=== PATIENT | female | born 1970 | race Caucasian/White ===

== ENCOUNTER 2023-08-22 08:46 | Day surgery (SDC) | payer BC, SELFPAY ==
--- OUTSIDE RECORDS SUMMARY | 2023-08-22 08:49 | XMS_ITS | Continuity of Care Document ---
Author Name Unknown Organization Z [facility] Address [address] [place] [address] Phone Care Team Providers Care Inside Sales Administrator Name Role Phone Unavailable Unavailable Unavailable Procedures Procedure Date Office consultation, moderate 6 X-ray exam of neck spine, 4+ views Advance Directives Directive Yes / No Effective Date File Name No Information Encounters Encounter Description Practice Location Reason(s) For Visit Diagnoses Date Provider Providers Copied on Encounter Z [facility], [address] [place] [address], [facility], tel:[phone] [employer] No Information 0- 8 No Information Office consultation, moderate Z [facility] [place], [address] [place] [address], [facility], tel:[phone] [employer] No Information 2 6 Mehbod Amir. [facility] [place], [address] [address], [place], [place], [id number], [place]. tel:[phone] Referring Provider: Teena Wilson, [facility] [address], [place], [address]. tel:[phone] Family History Family Member Type Diagnosis Age At Onset No Information Payers Payer name Insurance type Covered alliance party ID Authoriza tion(s) No Information Social History Type Description Quantity Date Captured Comments Sex Female Smoking Status No Information Chief Complaint And Reason For Visit No Information Reason For Referral Reason For Referral No Information History Of Present Illness Encounter Date Complaint History Of Prese nt Illness No Information Functional Status Date Functional Assessmen t No Information Instructions Date Instruction Additional Infor mation No Information Assessments Type Assessment Date No Information Patient Care Teams Name Effective Dates (start - stop) Status Members No Information
--- OUTSIDE RECORDS SUMMARY | 2023-08-22 08:50 | XMS_ITS | Continuity of Care Document ---
Author Name Unknown Organization Z [facility] Address [address] [place] [address] Phone Care Team Providers Care Creping Machine Operator Helper Name Role Phone Unavailable Unavailable Unavailable Procedures Procedure Date Office consultation, moderate 6 X-ray exam of neck spine, 4+ views Advance Directives Directive Yes / No Effective Date File Name No Information Encounters Encounter Description Practice Location Reason(s) For Visit Diagnoses Date Provider Providers Copied on Encounter Z [facility], [address] [place] [address], [facility], tel:[phone] [employer] No Information 0- 8 No Information Office consultation, moderate Z [facility] [place], [address] [place] [address], [facility], tel:[phone] [employer] No Information 2 6 Mehbod Amir. [facility] [place], [address] [address], [place], [place], [id number], [place]. tel:[phone] Referring Provider: Teena Wilson, [facility] [address], [place], [address]. tel:[phone] Family History Family Member Type Diagnosis Age At Onset No Information Payers Payer name Insurance type Covered republican ID Authoriza tion(s) No Information Social History [...]
[2023-08-22 09:28] VITALS: BP 148/90; PULSE 56; RESP 16; TEMP 36.8; O2SAT 97
[2023-08-22 09:29] VITALS: BMI 38.5
[2023-08-22] MEDS: LACTATED RINGERS 1000 ML 1,000 ML 100 ML IV (09:35)
--- NOTE | 2023-08-22 10:00 | CRLHL7_ITS ---
For Patients: As a result of the Century Cures Act, medical imaging exams and procedure reports are released immediately into your electronic medical record. You may view this report before your referring provider. If you have questions, please contact your health care provider. Indication: ALFONSO CATH PLACEMENT Technique: Two fluoroscopic images of the chest. Fluoroscopic time 63.6 seconds. IMPRESSION: Fluoroscopic guided Port-A-Cath placement. Dictated by Sarwat Dahl MD @ 08/22/2023 11:15:08 AM (Electronically Signed)
--- NOTE | 2023-08-22 10:04 | SUR.OPER ---
PATIENT QUESTIONS ANSWERED SATISFACTORILY PREOPERATIVELY. PATIENT BROUGHT TO OR #1 PER CART. Patient positioned supine on OR #1 bed. The perioperative team supported arms bilaterally on arm boards. Final approval of positioning by surgeon.
--- NOTE | 2023-08-22 10:13 | PM.GSCN ---
History of Present Illness Consult details Date Seen: 08/22/23 Consult date: 08/22/23 Narrative: 53-year-old female presents for a Port-A-Cath placement. Patient underwent bilateral mastectomy with right sentinel lymph node biopsy for invasive ductal carcinoma of the right breast with focal mucinous features grade 3, ER positive, ID negative, HER2 positive, pT1aN0. 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 Patient was seen by Medical Oncology and chemotherapy treatment was recommended. Patient presents today for Port-A-Cath placement. She denies any recent illnesses, fevers, or rashes. She does have a small open wound in the center of her inverted T incision on the left. She denies any procedures on her neck. Review of Systems Narrative: General: no fevers HENT: no problems swallowing CV: no shortness of breath Resp: no cough GI: No nausea, vomiting, abdominal pain : no dysuria, no increased urinary frequency, no hematuria Skin: no new rashes Musculoskeletal: no back pain Neuro: no muscle weakness Psyche: no depression, no anxiety PFSH PFSH Medical History Breast cancer ?C50.919 - Malignant neoplasm of unspecified site of unspecified female breast (ICD-10) Surgical History (Updated 08/22/23 @ 10:15 by Mendel Alvarez MD) Hx of bilateral mastectomy ?Z90.13 - Acquired absence of bilateral breasts and nipples (ICD-10) Social History (Updated 08/22/23 @ 10:16 by Mendel Alvarez MD) Narrative: Denies smoking, occasionally drinks alcohol. 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 Smoking Status: Never smoker Meds Home Medications and Allergies Home Medications Medication Instructions Recorded Confirmed Type cetirizine 10 mg tablet (Zyrtec) 10 mg PO QDAY PRN 08/16/23 08/16/23 History ibuprofen 200 mg tablet (Advil) 400 mg PO Q8H 08/16/23 08/16/23 History omeprazole 40 mg capsule,delayed 40 mg PO QDAY 08/16/23 08/16/23 History release Allergies Allergy/AdvReac Type Severity Reaction Status Date / Time No Known Drug Allergies Allergy Verified 08/16/23 09:55 Exam Narrative: Exam Narrative: General appearance: Alert, cooperative, and in no distress Chest: Bilateral mastectomy incisions were examined. In the center of the inverted T of the left mastectomy incision there is an open area measuring approximately 6 mm in diameter. There is no surrounding cellulitis. The rest of the bilateral mastectomy incisions are healing well. Pulmonary: Chest symmetric, lungs clear bilaterally Cardiovascular Heart: Regular rate and rhythm, S1, S2, no murmurs/rubs/gallops Skin: Normal skin color, texture, and turgor. Psychiatric: Alert, cooperative, normal affect. Const: Vital Signs, click to edit/add: Vital Signs - 24 hr 08/22/23 09:28 Temperature 98.3 F Pulse Rate 56 L Respiratory Rate 16 Blood Pressure 148/90 H Pulse Oximetry 97 Oxygen Delivery Me thod Room Air Results Labs Labs: All other labs normal. Assessment and Plan Assessment and plan (1) Breast cancer: Status: Acute Plan 53-year-old female presents for Port-A-Cath placement for initiation of chemotherapy treatment. I discussed with the patient and her the details of the procedure and the risks associated procedure including infection, bleeding and pneumothorax. The patient agreed to proceed.
[2023-08-22] MEDS: CEFAZOLIN 2 GM INJ IVP (10:20)
[2023-08-22] MEDS: BUPIVACAINE 0.25% 30 ML 20 ML INJECTION (10:28)
--- NOTE | 2023-08-22 10:44 | W.ANESCHARGE ---
Anesthesia Charges Start Date/Time Anesthesia Start Date: 08/22/23 Anesthesia Start Time: 10:14 Stop Date/Time Anesthesia Stop Date: 08/22/23 Anesthesia Stop Time: 11:13
[2023-08-22] MEDS: 0.9% SODIUM CHL 50 ML VIAL 10 ML INJECTION (10:50)
[2023-08-22] MEDS: HEPARIN 500 UNIT/5 ML SYRINGE IVF (10:59)
--- NOTE | 2023-08-22 11:08 | P.GSOP_ITS ---
Operative Note Date of procedure: 08/22/23 Pre-op diagnosis: 1. s/p bilateral mastectomy and right sentinel lymph node biopsy for invasive ductal carcinoma. 2. Desire for chemotherapy treatment. Post-op diagnosis: Same Type of Procedure: 1. Right internal jugular Port-A-Cath placement under ultrasound and fluoroscopy guidance. Indications: 53-year-old female was seen by Oncology for evaluation of adjuvant chemotherapy. Patient underwent bilateral mastectomy with right sentinel lymph node biopsy and immediate reconstruction with tissue expanders for P T1a N0 invasive ductal carcinoma in June of 2023. Patient was these seen by Oncology and chemotherapy treatment was recommended. Patient was referred to our surgery service for Port-A-Cath placement. Patient denied any infections or procedures in her neck. The procedure was discussed in detail. The risks associated procedure including infection, bleeding, and pneumothorax were all discussed with the patient, and she agreed to proceed. Procedure Description: After discussing the risks and benefits of the procedure, the patient signed informed consent.? The operative site was marked and the patient was brought to the operating room and placed on the operating table in supine position.? Care was taken to pad the patient's pressure points.?? The patient was then sedated by anesthesia.?? The operative site was then prepped and draped in the usual sterile fashion.? A time-out was then performed. Ultrasound was brought on to the field and right internal jugular vein was assessed. This was found to be large and easily compressible. The base of the neck directly overlying the internal jugular vein was then anesthetized with 1% lidocaine and 0.25% Marcaine mixture, and an introducer needle was inserted into the internal jugular vein using ultrasound guidance. Entry into the vein was confirmed by the presence of dark, nonpulsatile blood. A guide wire was advanced through the needle. The introducer needle was removed, leaving the wire in place. Fluoroscopy was brought onto the field and used to confirm the passage of the wire through the superior vena cava and into the inferior vena cava. Lidocaine was then used to infiltrate the port skin site, along with the proposed tunneling tract. A 3 cm incision was made at the site of the port pocket and subcutaneous tissue was dissected down using electrocautery. Subcutaneous pocket was created with blunt dissection and electrocautery. The catheter was advanced through the subcutaneous tissue using a tunneling trocar, exiting the incision at the base of the neck. The trocar was then disconnected. Fluoroscopy was again brought on to the field and the internal jugular vein and adjacent subcutaneous tissue was dilated with a pre-split introducer sheath in place. The wire was removed and the catheter was inserted into the introducer sheath. As the catheter was advanced, the sheath was split and divided, removing the sheath as the catheter was advanced into place. Fluoroscopy was again brought on to the field and the catheter position was ex amined. The entire course of the catheter was then viewed, and catheter was pulled back under direct visualization to ensure that the tip is in the SVC. The port was connected to the catheter tip and placed into previously created pocket. Prolene was used to place anchoring port sutures and the port was then secured in the pocket. The flow through the catheter was checked with a syringe, and found to be excellent. The incision at the base of the neck was then closed with a single interrupted 4-0 monocryl stitch and dressed with a Steri-Strip and a sterile bandage. Subdermal layer was re-approximated with interrupted 3-0 vicryl stitches and skin over the port was closed with 4-0 monocryl using subcuticular stitch. Lozoya needle was inserted through the skin into the port and the port wa s flushed with heparinized saline. The needle was then removed. Steri strips, sterile 2x2 and Tegaderm was applied over the incision. The patient was then roused and brought to same day surgery in satisfactory condition. Sponge and needle counts were correct at the end of the procedure. Post procedure CXR was ordered to be done in same day surgery. Sterile dressings were then applied. Anesthesia: MAC and local Surgeon: Mendel Alvarez MD Estimated blood loss (mL): 10 Condition: stable Disposition: same day
[2023-08-22 11:13] VITALS: BP 106/55; PULSE 55; RESP 16; TEMP 36.3; O2SAT 92
--- NOTE | 2023-08-22 11:13 | CRLHL7_ITS ---
For Patients: As a result of the Century Cures Act, medical imaging exams and procedure reports are released immediately into your electronic medical record. You may view this report before your referring provider. If you have questions, please contact your health care provider. INDICATION: Port placement TECHNIQUE: Chest 1 views. COMPARISON: Same day fluoroscopic images. FINDINGS/IMPRESSION: Right chest wall IJ approach port catheter with tip overlying the expected position of the cavoatrial junction. The cardiomediastinal silhouette is within normal limits. No focal airspace consolidation, pleural effusion, or pneumothorax. No displaced fractures. Dictated by Wilfredo Herny MD @ 08/22/2023 12:43:16 PM (Electronically Signed)
[2023-08-22 11:30] VITALS: BP 101/50; PULSE 50; RESP 16; O2SAT 92
[2023-08-22 11:45] VITALS: BP 105/66; PULSE 55; RESP 16; O2SAT 94
[2023-08-22 12:00] VITALS: BP 110/74; PULSE 57; RESP 16; O2SAT 94
== END 2023-08-22 12:07 | disposition home or self-care (01) ==
PROVIDERS: PCP Nurse Practitioner Family; Visit Provider Surgery
PROC: (CPT 36561; principal; 2023-08-22 10:00)
DX: Z45.2 Encounter for adjustment and management of vascular access device (principal); C50.911 Malignant neoplasm of unspecified site of right female breast; Z17.0 Estrogen receptor positive status [ER+]
CPT/HCPCS: 36561; 00532; 71045; C1788; J0665; J0690; J1642; J2250; J2405; J2704; J3010; J7120

== ENCOUNTER 2023-08-25 13:46 | Outpatient (CLI) | payer BC, SELFPAY ==
--- OUTSIDE RECORDS SUMMARY | 2023-08-25 13:50 | XMS_ITS | Continuity of Care Document ---
Author Name Unknown Organization Z [facility] Address [address] [place] [address] Phone Care Team Providers Care Printing Assistant Name Role Phone Unavailable Unavailable Unavailable Procedures Procedure Date Office consultation, moderate 6 X-ray exam of neck spine, 4+ views Advance Directives Directive Yes / No Effective Date File Name No Information Encounters Encounter Description Practice Location Reason(s) For Visit Diagnoses Date Provider Providers Copied on Encounter Z [facility], [address] [place] [address], [facility], tel:[phone] [employer] No Information 0- 8 No Information Office consultation, moderate Z [facility] [place], [address] [place] [address], [facility], tel:[phone] [employer] No Information 2 6 Mehbod Amir. [facility] [place], [address] [address], [place], [place], [id number], [place]. tel:[phone] Referring Provider: Teena Wilson, [facility] [address], [place], [address]. tel:[phone] Family History Family Member Type Diagnosis Age At Onset No Information Payers Payer name Insurance type Covered green party ID Authoriza tion(s) No Information Social [...]
[2023-08-25] MEDS: PERFLUTREN LIPID MICROSPHERES 2 ML VIAL IV (14:58)
== END 2023-08-25 13:47 | disposition home or self-care (01) ==
PROVIDERS: PCP Nurse Practitioner Family; Visit Provider Internal Medicine Hematology & Oncology
DX: Z51.81 Encounter for therapeutic drug level monitoring (principal); Z79.899 Other long term (current) drug therapy
CPT/HCPCS: 93306; Q9957

== ENCOUNTER 2023-11-23 14:36 | Outpatient (CLI) | payer BC, SELFPAY | END 2023-11-23 14:37 | disposition home or self-care (01) | LOC: RAD 14:36 | PROVIDERS: PCP Nurse Practitioner Family; Visit Provider Physician Assistant | DX: C50.912 Malignant neoplasm of unspecified site of left female breast (principal); I34.0 Nonrheumatic mitral (valve) insufficiency; I35.1 Nonrheumatic aortic (valve) insufficiency; Z51.81 Encounter for therapeutic drug level monitoring; Z79.899 Other long term (current) drug therapy | CPT/HCPCS: 93306 ==

== ENCOUNTER 2023-12-07 11:51 | Outpatient (CLI) | payer BC, SELFPAY ==
--- OUTSIDE RECORDS SUMMARY | 2023-12-07 11:53 | XMS_ITS | Clinical Summary ---
Author Name Unknown Organization [employer] Address [place], [place] [address] Care Team Providers Care Director Of Teenage Activities Name Role Phone Sola Kwan APRN, PHYSICAL THERAPIST CENTER MANAGER Primary Care Provider Pcp, No Unavailable Unavailable Allergies No known active allergies Medications Medication Sig Dispensed Refills Start Date End Date Status nitroglycerin (NITRO-BID) 2 % ointmentIndications:R aynaud's syndrome Apply 0.5 Inches topically to affected area(s) every 6 hours. 1 Tube 0 11/21/2012 Active Encounters Date Type Department Care Team Description 11/23/2023 3:00 PM CDT Ancillary Procedure [facility] [address] [place] [address] from Last 3 Months Social History Tobacco Use Types Packs/Day Years Used Date Smoking Tobacco: Never Alcohol Use Standard Drinks/Week Comments Not Asked 0 (1 standard drink = 0.6 oz pur e alcohol) Sex and Gender Information Value Date Recorded Sex Assigned at Not on file Gender Identity Not on file Sexual Orientation Not on file Obstetrics History Last Filed Vital Signs Vital Sign Reading Time Taken Comments Blood Pressure 120/80 11/21/2012 9:53 AM CDT Pulse 61 11/21/2012 9:53 AM CDT Temperature - - Respiratory Rate - - Oxygen Saturation - - Inhaled Oxygen Concentration - - Weight 91.6 kg (202 lb) 11/21/2012 9:53 AM CDT Height - - Body Mass Index - - Plan of Treatment Health Maintenance Due Date Last Done Comments Tdap 1980 Depression screening for age 12+ 1981 HIV for age 15-65 1984 BMI (ht and wt on same day) for age 18+ 1987 Hepatitis C screening for ag e 18-79 1987 Tetanus booster 1989 Pap test for age 21-65 1990 Colonoscopy through age 75 2014 Lipids for age 45-75 2014 Mammogram for age 45-75 2014 Zoster (shingles) series for age 50+ (1 of 2) 2019 COVID-19 vaccine series (2022- season) 2023 06/14/2022 Influenza for age 50-64 04/28/2024 Pneumococcal series for age 6-64 Aged Out No longer eligible based on patient's age to complete this topic Procedures Procedure Name Priority Date/Time Associated Diagnosis Comments ECHO TTE COMPLETE WO CONTRAST Routine 11/23/2023 3:08 PM CDT Malignant neoplasm (HC) from Last 3 Months Results * ECHO TTE COMPLETE WO CONTRAST (11/23/2023 3:08 PM CDT) AORTIC VALVE MEAN PG 6 mmHg EJECTION FRACTION 62 % LVEDD 3.7 cm Anatomical Region Laterality Modality Ultrasound 11/23/2023 2:55 PM CDT Narrative 11/23/2023 3:25 PM CDT ECHOCARDIOGRAM ADELA JAMIE ?Accession#: ?? [id number] : ?1970 53 years Study Date: ?? 11/23/2023 2:55:42 PM Gender: F ? BP: ? 120/72 mmHg Height: 168.00 cm ? BSA: ?2.21 m? ? ? Weight: 114.00 kg ? Tech: ? NWA ?Referring MD: ANASTASIA WHELAN Site: ? [facility] Reading Location: Mobile-OP Patient Location: Outpatient. Procedure: 2D, Color Doppler and Spectral Doppler. Indication for study: Malignant Neoplasm Cardiac Rhythm: Regular.Study quality: Fair. Imaging limitations: This study was subject to imaging limitations due to tissue expanders. Final Impressions: 1. Normal left ventricular size, normal wall thickness, normal global systolic function, calculated EF of 62 %. 2. Right ventricular cavity size is normal, global systolic RV function is normal. 3. Normal left atrium size. 4. The aortic valve is normal, no stenosis and trivial regurgitation. 5. The mitral valve is normal, trace mitral regurgitation. 6. Tricuspid valve is normal. 7. No pericardial effusion. Chamber Sizes and Function Normal left ventricular size, normal wall thickness, normal global systolic function, calculated EF of 62 %. Left atrial size is normal. Right ventricular cavity size is normal, global systolic RV function is normal. The right atrium is normal. Right atrial volume index is 11 ml/m? ? ?. Right atrial area is 11 cm? ? ?. The pulmonary artery is not well visualized. The sinus of Valsalva is normal sized. The ascending aorta is not well visualized. Valves, RV Pressures and Diastolic Function The aortic valve is normal in structure, no stenosis and trivial regurgitation. The mitral valve is normal in structure, trace mitral regurgitation. Normal diastolic function. The tricuspid valve is normal in structure. Tricuspid regurgitation is trace regurgitation. The pulmonic valve is normal. Trace pulmonary regurgitation. Masses, Effusion, Shunts There is no pericardial effusion. The inferior vena cava is normal sized, respiratory size variation greater than 50%. Interatrial septum is not well visualized. MEASUREMENTS AND CALCULATIONS 2-D Measurements and LV Function: LVID (d) 3.7 cm Planimetered EF 62 % LVID (s) 2.8 cm LV FS% (2D) ? 25 % IVS (d) ??1.0 cm LVOT diameter ?? 2.2 cm LVPW (d) 1.3 cm HR ?75 bpm Ao Sinus 3.3 cm LA Vol index ?23 ml/m2 LA ? 3.8 cm RA Vol index ?11 ml/m2 ?RA area ? 11 cm?RV Max 4C (d) ?? 2.7 cm Diastology: Mitral ?Tissue Doppler E Peak 1.1 m/s ??e', Septum ? 0.11 m/s A Peak 1.1 m/s ??e', Lateral ?0.16 m/s E/A ?1.0 ?E/e' Average ?? 7.74 DT ? 225 msec Aortic Valve: Vmax ? 1.7 m/s ??BRENDAN (V) ?? 2.75 cm? ? ? VTI ?0.38 m ?? BRENDAN (I) ?? 2.56 cm? ? ? LVOT V max 1.3 m/s ??Max PG ?11 mmHg LVOT VTI ?? 0.27 m ?? Mean PG ?? 6 mmHg SV ? 98 ml ?Dim Index 0.70 SV index ?? 44 ml/m? ? ? CO ?7.3 l/min ?CI ?3.3 l/min/m? ? ? Mitral Valve: MVA ?3.4 cm? ? ? MV P 1/2 65 msec Tricuspid Valve and estimated PA pressures: TAPSE 2.7 cm . This study was interpreted by an [facility] accredited facility. CC: HIM ([facility]) [facility]. ??Final ?? Procedure Note Elizabeth Rodriguez, [facility] - 11/23/2023 ECHOCARDIOGRAM ADELA SLADE : 1970 53 years Study Date: 11/23/2023 2:55:42 PM Gender: F BP: 120/72 mmHg Height: 168.00 cm BSA: 2.21 m? ? ? Weight: 114.00 kg Tech: LOKIA Referring MD: ANASTASIA WHELAN Site: [facility] Reading Location: Mobile-OP Patient Location: Outpatient. Procedure: 2D, Color Doppler and Spectral Doppler. Indication for study: Malignant Neoplasm Cardiac Rhythm: Regular.Study quality: Fair. Imaging limitations: This study was subject to imaging limitations due totissue expanders. Final Impressions: 1. Normal left ventricular size, normal wall thickness, normal globalsystolic function, calculated EF of 62 %. 2. Right ventricular cavity size is normal, global systolic RV functionis normal. 3. Normal left atrium size. 4. The aortic valve is normal, no stenosis and trivial regurgitation. 5. The mitral valve is normal, trace mitral regurgitation. 6. Tricuspid valve is normal. 7. No pericardial effusion. Chamber Sizes and Function Normal left ventricular size, normal wall thickness, normal globalsystolic function, calculated EF of 62 %. Left atrial size is normal.Right ventricular cavity size is normal, global systolic RV function isnormal. The right atrium is normal. Right atrial volume index is 11ml/m? ? ?. Right atrial area is 11 cm? ? ?. The pulmonary artery is not wellvisualized. The sinus of Valsalva is normal sized. The ascending aorta isnot well visualized. Valves, RV Pressures and Diastolic Function The aortic valve is normal in structure, no stenosis and trivialregurgitation. The mitral valve is normal in structure, trace mitralregurgitation. Normal diastolic function. The tricuspid valve is normal instructure. Tricuspid regurgitation is trace regurgitation. The pulmonicvalve is normal. Trace pulmonary regurgitation. Masses, Effusion, Shunts There is no pericardial effusion. The inferior vena cava is normal sized,respiratory size variation greater than 50%. Interatrial septum is notwell visualized. MEASUREMENTS AND CALCULATIONS 2-D Measurements and LV Function: LVID (d) 3.7 cm Planimetered EF 62 % LVID (s) 2.8 cm LV FS% (2D) 25 % IVS (d) 1.0 cm LVOT diameter 2.2 cm LVPW (d) 1.3 cm HR 75 bpm Ao Sinus 3.3 cm LA Vol index 23 ml/m2 LA 3.8 cm RA Vol index 11 ml/m2 RA area 11 cm? ? ? RV Max 4C (d) 2.7 cm Diastology: Mitral Tissue Doppler E Peak 1.1 m/s e', Septum 0.11 m/s A Peak 1.1 m/s e', Lateral 0.16 m/s E/A 1.0 E/e' Average 7.74 DT 225 msec Aortic Valve: Vmax 1.7 m/s BRENDAN (V) 2.75 cm? ? ? VTI 0.38 m BRENDAN (I) 2.56 cm? ? ? LVOT V max 1.3 m/s Max PG 11 mmHg LVOT VTI 0.27 m Mean PG 6 mmHg SV 98 ml Dim Index 0.70 SV index 44 ml/m? ? ? CO 7.3 l/min CI 3.3 l/min/m? ? ? Mitral Valve: MVA 3.4 cm? ? ? MV P 1/2 65 msec Tricuspid Valve and estimated PA pressures: TAPSE 2.7 cm . This study was interpreted by an [facility] accredited facility. CC: [facility] (med records) [facility]. Final Anastasia Whelan PA-C ECHO ORD from Last 3 Months Care Teams Director Of Teenage Activities Relationship Specialty Start Date End Date Sola Kwan, ROPEMAN, PHYSICAL THERAPIST CENTER MANAGER [id number] [id number] PCP - General Nurse Practitioner - Family 08/25/23 Pcp, No . 08/25/23
--- OUTSIDE RECORDS SUMMARY | 2023-12-07 11:54 | XMS_ITS | Encounter Summary ---
Author Name Unknown Organization [facility] Address [address] [place] [id number] Care Team Providers Care Public Transit Trolley Driver Name Role Phone Sola Kwan APRN, C.N.P., D.N.P. 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 No 07/27/2020 Within the last year, have y ou been humiliated or emotionally abused in other ways by your partner or ex-partner? No Within the last year, have y ou been kicked, hit, slapped, or otherwise physically hurt by your partner or ex-partner? No 07/27/2020 Within the last year, have y ou been raped or forced to have any kind of sexual activity by your partner or ex-partner? No 07/27/2020 Social Connection and Isolat ion Panel [NHANES] Answer Date Recorded In a typical week, how many times do you talk on the phone with family, friends, or neighbors? More than three times a week 07/27/2020 How often do you get togethe r with friends or relatives? Twice a week 07/27/2020 How often do you attend chur ch or advent services? Never 07/27/2020 Do you belong to any clubs o r organizations such as scientology groups, unions, fraternal or athletic groups, or school groups? Yes 07/27/2020 How often do you attend meet ings of the clubs or organizations you belong to? Never 07/27/2020 Are you , , di vorced, , never , or living with a partner? 07/27/2020 AUDIT-C Answer Date Recorded Q1: How often do you have a drink containing alc ohol? 2-4 times a month 07/27/2020 Q2: How many drinks containi ng alcohol do you have on a typical day when you are drinking? 3 or 4 07/27/2020 Q3: How often do you have si x or more drinks on one occasion? Less than monthly 07/27/2020 Overall Financial Resource Strain (CARDIA) Answe r Date Recorded How hard is it for you to pa y for the very basics like food, housing, medical care, and heating? Not hard at all 05/11/2023 PHQ-2 Answer Date Recorded PHQ-2 Score 0 09/29/2022 [facility] - Occupational Stress Questionnaire Answer Date Recorded Do you feel stress - tense, restless, nervous, or anxious, or unable to sleep at night because your mind is troubled all the time - these days? Not at all 07/27/2020 Exercise Vital Sign Answer Date Recorde d On average, how many days pe r week do you engage in moderate to strenuous exercise (like a brisk walk)? 6 days 05/11/2023 On average, how many minutes do you engage in exercise at this level? 90 min 05/11/2023 Hunger Vital Sign Answer Date Recorded Within the past 12 months, y ou worried that your food would run out before you got the money to buy more. Never true 05/11/20 23 Within the past 12 months, t he food you bought just didn't last and you didn't have money to get more. Never true 05/11/2023 PRAPARE - Transportation Answer Date Re corded In the past 12 months, has l ack of transportation kept you from medical appointments or from getting medications? No 04/28 In the past 12 months, has l ack of transportation kept you from meetings, work, or from getting things needed for daily living? No 05/11/2023 Nutrition Answer Date Recorded Nutrition: EVOO Fat Source Unknown 05/11 On average, how many serving s of fruits and vegetables do you eat per day (serving size is equal to 1 cup or approximately the size of a tennis ball)? 0-2 05/11/2023 Dental Answer Date Recorded Dental: Regular Dentist No 08/24/20 Employment Answer Date Recorded Employment status Employed and actively working without restrictions 05/11/2023 Housing Stability Answer Date Recorded What is your living situation today? I have a [facility] place to live 05/11/2023 Education Answer Date Recorded What is the highest level of school you have completed or the highest degree you have received? 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 [address] [place] [id number] PCP - General Family Medicine 05/24/22 documented as of this encounter
--- OUTSIDE RECORDS SUMMARY | 2023-12-07 11:54 | XMS_ITS | Encounter Summary ---
Author Name Unknown Organization [facility] Address [address] [place] [address] Care Team Providers Care Chemical Plant Worker Name Role Phone Sola Kwan APRN, C.N.P., D.N.P. Primary Ca re Provider Reason for Referral * Outpatient (Routine) - Authorized Specialty Diagnoses / Procedures Referred By Gal bryant Referred To Contact Endocrinology Diagnoses Obesity Body Mass Index 30-39.9 Adult Gastroesophageal Reflux Disease Without Esophagitis Impaired Fasting Glucose Monet Gr P.A.-C. [address] [place] [address] [facility] Referral ID Status Reason Start Date Expiration Date V isits Requested Visits Authorized [id number] Authorized 10/10/2023 04/10/2025 1 1 RGROUND PRODUCTION FOREPERSON * Medication Prior Authorization - Closed Specialty Diagnoses / Procedures Referred By Gal bryant Referred To Contact Monet Gr P.A.-C. [address] [place] [address] Referral ID Status Reason Start Date Expiration Date Visits Re quested Visits Authorized [id number] Closed 1 1 RGROUND PRODUCTION FOREPERSON * Medication Prior Authorization - Closed Specialty Diagnoses / Procedures Referred By Gal bryant Referred To Contact Monet Gr P.A.-C. [address] [place] [phone] Referral ID Status Reason Start Date Expiration Date Visits Re quested Visits Authorized [id number] Closed 1 1 RGROUND PRODUCTION FOREPERSON * Medication Prior Authorization - Closed Specialty Diagnoses / Procedures Referred By Gal t Referred To Contact Monet Gr P.A.-C. [address] [place] [phone] Referral ID Status Reason Start Date Expiration Date Visits Re quested Visits Authorized [id number] Closed 1 1 RGROUND PRODUCTION FOREPERSON * Medication Prior Authorization - Closed Specialty Diagnoses / Procedures Referred By Gal bryant Referred To Contact Monet Gr P.A.-C. [address] [place] [address] Referral ID Status Reason Start Date Expiration Date Visits Re quested Visits Authorized [id number] Closed 1 1 RGROUND PRODUCTION FOREPERSON * Medication Prior Authorization - Authorized Specialty Diagnoses / Procedures Referred By Contac t Referred To Contact Monet Gr P.A.-C. [address] [place] [phone] Referral ID Status Reason Start Date Expiration Date V isits Requested Visits Authorized [id number] Authorized 09/12/2023 04/09/2024 1 1 RGROUND PRODUCTION FOREPERSON Reason for Visit * Outpatient (Routine) - Closed Specialty Diagnoses / Procedures Referred By Contac t Referred To Contact Endocrinology Diagnoses Obesity Body Mass Index 30-39.9 Adult Sage Chávez M.D. [address] [place] [phone] [facility] Referral ID Status Reason Start Date Expiration Date Visits Re quested Visits Authorized [id number] Closed 07/12/2023 07/11/2024 1 1 Encounter Details Date Type Department Care Team (Latest Contact Info) Description 10/10/2023 1:00 PM UNDERGROUND PRODUCTION FOREPERSON Telemedicine Division of Endocrinology in [place], [place] [address] [place] [address] Monet Gr P.A.-C. [address] [place] [address] Gastroesophageal Reflux Disease Without Esophagitis (Primary Dx); Obesity Body Mass Index 30-39.9 Adult; Impaired Fasting Glucose Social History Tobacco Use Types Packs/Day Years [...] often do you attend chur ch or hindu services? Never 07/27/2020 Do you belong to any clubs o r organizations such as denominational groups, unions, fraternal or athletic groups, or [...] Answer Date Recorded PHQ-2 Score 0 09/29/2022 [facility] - Occupational Stress [...] Date Recorded Dental: Regular Dentist No 08/24/20 22 Employment Answer Date Recorded Employment status Employed and actively working without restrictions 05/11/2023 Housing Stability Answer Date Recorded What is your living situation today? I have a [facility] place to live 05/11/2023 Education Answer Date Recorded What is the highest level of school you have completed or the highest degree you have received? GED or equivalent Sex and Gender Information Value Date Recorded Sex Assigned at Female 05/16/2023 7:46 AM CDT Gender Identity Female 05/03/2022 12:49 PM CDT Sexual Orientation Straight 05/03/2022 12 :49 PM CDT documented as of this encounter Last Filed Vital Signs Vital Sign Reading Time Taken Comments Blood Pressure - - Pulse - - Temperature - - Respiratory Rate - - Oxygen Saturation - - Inhaled Oxygen Concentration - - Weight 117 kg (257 lb) 10/10/2023 1:06 PM UNDERGROUND PRODUCTION FOREPERSON Height - - Body Mass Index 40.82 08/25/2023 10:03 AM UNDERGROUND PRODUCTION FOREPERSON documented in this encounter Consult Notes * Monet Gr P.A.-C. - 10/10/2023 1:00 PM CST SUBJECTIVE REASON FOR VISIT Obesity Consultation HISTORY OF PRESENT ILLNESS Adela presents to bariatric endocrinology today to discuss the sensitive topic of weight management and options for treatment, referred by Sage Chávez M.D.. Has been struggling with weight gain since her diagnosis and treatment of breast cancer. She needs reconstruction and the surgery team would like her down to a BMI of 35 or a weight loss of 40 lbs atcurrent weight today. Unfortunately her chemo treatments have her on glucocorticoids that are not weight neutral and willcause mobilization of fat cells and increase appetite. Also she will have probably hormonal deprivation as treatment which will further her metabolic decline. These treatments are lifesaving but haveincreased her weight. Responses from our weight management questionnaire that guided today's discussion are below, which review her typical dietary habits, structure of meals, physical activity habits, and self-monitoringaccountability efforts, habits that are beneficial or detrimental toward efforts at weight loss, rat ionale for eating, and motivation for changing lifestyle behaviors. Pertinent review of systems otherwise grossly negative. The following portions of the patient's history were reviewed and updated as appropriate: visit questionnaire, allergies, current medications, family history, medical history, social history, surgical history, and problem list. OBJECTIVE PHYSICAL EXAM General: Obese, not cushingoid. No acute distress. Mentation: Normal orientation, judgment, and mood. Neuro: Balance normal. VITAL SIGNS There were no vitals filed for this visit. ASSESSMENT / PLAN #1 Obesity Body Mass Index 30-39.9 Adult - Endocrinology - Weight management consult (clinic) #2 Gastroesophageal Reflux Disease Without Esophagitis #3 Impaired Fasting Glucose Other orders - semaglutide (WEGOVY) 0.25 mg/0.5 mL pen injector injection; Inject 0.25 mg under the skin every 7(seven) days., Starting Mon10/10/2023, Normal - semaglutide (WEGOVY) 0.5 mg/0.5 mL pen injector injection; Inject 0.5 mg under the skin every 7 (seven) days., Starting Mon10/10/2023, Normal - semaglutide (WEGOVY) 1 mg/0.5 mL pen injector injection; Inject 1 mg under the skin every 7 (seven) days., Starting Mon10/10/2023, Normal - semaglutide (Wegovy) 1.7 mg/0.75 mL pen injector injection; Inject 1.7 mg under the skin every 7 (seven) days., Starting Mon10/10/2023, Normal - semaglutide (Wegovy) 2.4 mg/0.75 mL pen injector injection; Inject 2.4 mg under the skin every 7 (seven) days., Starting Mon10/10/2023, Normal - Endocrinology office visit (clinic); Future; Expected date: 01/08/2024 We discussed the available interventions for weight related issues with the treatment and management of overweight and obesity. Lets have her start semaglutide. We discussed that her weight loss is being stunted by having steroids on board but they are a necessary treatment. If she cannot find semaglutide lets start her on Qsymia The foundation of any successful weight loss program includes behavioral and lifestyle modifications, coming in the form of changes pertaining to food choices and maximizing efforts at increasing daily activity. Depending on the intensity of medical intervention, we require engagement with either our Dietitians and/or Behavioral Psychology department PRIOR to starting medical management for weight loss. Another option that [facility] offers are individual offerings through our [facility]. Structured programs outside of [facility] exist as well which can also certainlyaid in weight loss efforts. The next option would be to begin a medication to aid in weight loss efforts. Certainly these medications do not produce weight loss alone, and we require documented efforts to improve of the behaviors at home in conjunction with the use of these to maximize the benefit. There is a risk of being onthese medications without losing weight as their effects are somewhat weak, and the amount of weight loss can be negated easily by even just slightly overeating. BMI needs to be greater than 27 kg/m2with a medical comorbidity or 30 kg/m2 without any medical comorbidity in order to qualify for a medication for weight loss. Expected weight loss while on these may be around 5% over the course of 6 months, and sometimes can be used longer term. Third, for patients with a BMI between 30 kg/m2 and 40 kg/m2, an option remains to manage weight with an endoscopic procedure for weight loss. Currently, there are two FDA approved procedures for weight loss. The 1st being a saline-filled balloon that this placed in the stomach for a 6 month time period and then removed; the 2nd being endoscopic sleeve gastroplasty where the stomach is sewn permanently smaller to give restriction in how much food a person can consume. These are paid for out of pocket, and can cost $10,000 to $15,000. BMI should be between 30 kg/m2 and 40 kg/m2, and expected weight loss from these procedures is maybe around 10% to 15% of a person's total body weight. Lastly, bariatric surgery is the most aggressive option for treatment of weight related issues. Thetwo most common surgeries we do here at [facility] are the sleeve gastrectomy and the Ingris-en-Y gastric bypass. These are often covered by insurance, but sometimes can be a plan exclusion based on the patient's insurance. BMI should be greater than 35 kg/m2 with a medical comorbidity or greater than 40 kg/m2 without any medical comorbidity to qualify for bariatric surgery, with an expected weight loss of 25% to 30% of a person's total body weight. Follow up: Patient to follow up in 3 months with myself. WEIGHT LOSS MEDICATION INSTRUCTIONS: NATIONWIDE GLP1 SHORTAGE: There is a shortage of GLP1 medications. If she is unable to find one, OK to change to alternate GLP-1 injectable medication. If she would like to switch to oral agents, we will address this at her follow up appointment, or she can reschedule to an earlier available appointment with our department to address. Ozempic, Mounjaro, Trulicity, Victoza, Byetta, and Rybelsus are not FDA approved for weight loss. SYMPTOMS: For patients taking medications for weight loss, if the patient cannot tolerate the medication due to side effects including gastrointestinal, mood, or other side effects, they can stop the medication. Medications with TOPIRAMATE or WELLBUTRIN can be taken either as 1/2 dose every day for 1 week, andthen stop, or every other day for 1 week and then stop. CHANGING MEDICATIONS: If the patient would like to start a medication or change to a different medication, please schedule the patient for first available follow up appointment. MEDICATION COST: Weight loss medications are often not covered by insurance companies. For issues with cost of weight loss medications, patients should continue to look at Their insurance company to check coverage The medication's switching operator website for decreased copayment coupons, Different pharmacies for aguirre comparison. If she were to pursue bariatric surgery, she would be considered low medical complexity. RGROUND PRODUCTION FOREPERSON documented in this encounter Plan of Treatment Scheduled Referrals Name Type Priority Associated Diagnoses Order Schedule Endocrinology office visit (clinic) Outpatient Referral Routine Obesity Body Mass Index 30-39.9 Adult Gastroesophageal Reflux Disease Without Esophagitis Impaired Fasting Glucose Expected: 01/08/2024 (Approximate), Expires: 01/07/2025 documented as of this encounter Visit Diagnoses Diagnosis Gastroesophageal Reflux Disease Without Esophagitis- Primary Obesity Body Mass Index 30-39.9 Adult Impaired Fasting Glucose documented in this encounter Additional Health Concerns Assessment Noted Time PHQ-9 Depression Total Score: 0 10/30/19 14 3:19 PM UNDERGROUND PRODUCTION FOREPERSON documented as of this encounter Care Teams Chemical Plant Worker Relationship Specialty Start Date End Date Sola Kwan APRN, C.N.P., D.N.P. [address] [phone] PCP - General Family Medicine 05/24/22 documented as of this encounter
--- OUTSIDE RECORDS SUMMARY | 2023-12-07 11:54 | XMS_ITS | Encounter Summary ---
Author Name Unknown Organization [facility] Address [address] [place] [address] Care Team Providers Care Stained Glass Glazier Helper Name Role Phone Sola Kwan APRN, C.N.PDaren, D.N.P. Primary Ca re Provider Reason for Referral * Outpatient (Routine) - Closed Specialty Diagnoses / Procedures Referred By Gal t Referred To Contact Plastic Surgery Diagnoses NA Echo Cruz APRN, C.N.P., D.N.P. [address] [place] [phone] [facility] Referral ID Status Reason Start Date Expiration Date Visits Re quested Visits Authorized [id number] Closed 09/07/2023 09/06/2026 1 1 Scheduling Instructions With any breasts BALDEV for expansion on October 05 CHBOARD OPERATOR SUPERVISOR Encounter Details Date Type Department Care Team (Late st Contact Info) Description 09/07/2023 Clinical Communication Division of Plastic Surgery in [place], [place] [address] [place] [phone] Echo Cruz APRN, Jerel.N.P., D.N.P. [address] [place] [phone] Social History Tobacco Use Types Packs/Day Years [...] often do you attend chur ch or holiness services? Never 07/27/2020 Do you belong to any clubs o r organizations such as anabaptist groups, unions, fraternal or athletic groups, or [...] Answer Date Recorded PHQ-2 Score 0 09/29/2022 [facility] - Occupational Stress [...] your living situation today? I have a [facility] place to live 05/11/2023 Education Answer [...] PM CDT documented as of this encounter Miscellaneous Notes * Telephone Encounter - Echo Cruz APRN, C.N.P., D.N.P. - 09/07/2023 9:07 AM CST I called patient to discuss timing of next expansion as patient is currently on chemo infusion. Sheunderstands we would need labs done before next expansion and expansion needs to be done before herchemo infusion. She reports that October 05 would work better for her which will be day before her infusion and she will bring her lab results with her. I have placed a follow-up expansion appointment for October 05. Patient has no radiation plan. All questions were answered to the best of my ability and patient was appreciative of the call. CHBOARD OPERATOR SUPERVISOR documented in this encounter Plan of Treatment Scheduled Referrals Name Type Priority Associated Diagnoses Orde r Schedule Plastic Surgery office visit (clinic) Outpatient Referral Routine Expected: 10/05/2023, Expires: 12/06/2024 documented as of this encounter Visit Diagnoses Not on filedocumented in this encounter Additional Health Concerns Assessment Noted Time PHQ-9 Depression Total Score: 0 10/30/19 14 3:19 PM SWITCHBOARD OPERATOR SUPERVISOR documented as of this encounter Care Teams Stained Glass Glazier Helper Relationship Specialty Start Date End Date Sola Kwan APRN, C.N.P., D.N.P. [address] [phone] PCP - General Family Medicine 05/24/22 documented as of this encounter
--- OUTSIDE RECORDS SUMMARY | 2023-12-07 11:54 | XMS_ITS | Encounter Summary ---
Author Name Unknown Organization [facility] Address [address] [place] [address] Care Team Providers Care Modular Set Crew Member Name Role Phone Sola Kwan APRN C.N.PDaren, D.N.P. Primary Ca re Provider Reason for Referral * Outpatient (Routine) - Authorized Specialty Diagnoses / Procedures Referred By Gal t Referred To Contact Family Medicine Perry Lundberg P.A.-C., P.A. [address] [place] [phone] [facility] Region Referral ID Status Reason Start Date Expiration Date V isits Requested Visits Authorized [id number] Authorized 12/04/2023 06/04/2025 1 1 Scheduling Instructions Follow-up right ear. Follow-up express care. Encounter Details Date Type Department Care Team (Late st Contact Info) Description 12/04/2023 11:40 AM CDT Office Visit Express Care in [place], [place] [address] [place] [phone] Perry Lundberg P.A.-C., P.A. [address] [place] [phone] Acute Suppurative Otitis Media Without Spontaneous Rupture Recurrent Right (Primary Dx) Discharge Disposition: Home or Self Care Social History Tobacco Use Types Packs/Day Years [...] often do you attend chur ch or jewish services? Never 07/27/2020 Do you belong to any clubs o r organizations such as evangelical groups, unions, fraternal or athletic groups, or [...] Answer Date Recorded PHQ-2 Score 0 09/29/2022 [facility]ational Stress Questionnaire Answer Date Recorded [...] living situation today? I have a [facility] place to live 05/11/2023 Education Answer Date Recorded What is the highest level of school you have completed or the highest degree you have received? GED or equivalent Sex and Gender Information Value Date Recorded Sex Assigned at Female 05/16/2023 7:46 AM CDT Gender Identity Female 05/03/2022 12:49 PM CDT Sexual Orientation Straight 05/03/2022 12 :49 PM CDT documented as of this encounter Progress Notes * Perry Lundberg P.A.-C., Sotero.A. - 12/04/2023 11:40 AM CDT SUBJECTIVE Jennifer Slade [phone] CHIEF COMPLAINT / REASON FOR VISIT Jennifer Slade is a 53 y.o. female who presents for evaluation of No chief complaint on file.. HISTORY OF PRESENT ILLNESS Patient presents with ear pain on the right side. She reports she has been sick few days the ear pain for 1 day. Reports it is on the right side there has been no bleeding but she reports there has been some drainage. She reports previous ear resolved with Augmentin, symptoms have returned. REVIEW OF SYSTEMS REVIEW OF SYSTEMS Discussed. OBJECTIVE VITAL SIGNS There were no vitals filed for this visit. PHYSICAL EXAMINATION Physical Exam Pleasant appearing 53-year-old female not ill or toxic. She is some redness and bulging of the TM on the right side. Hearing is intact to conversation. Heart is regular lungs are clear remainder of exam deferred. DIAGNOSTICS No results found for this or any previous visit (from the past 24 hour(s)). ECHO TRANSTHORACIC COMPLETE Result Date: 11/23/2023 Narrative: ECHOCARDIOGRAM JENNIFER SLADE : 1970 53 years Study Date: 11/23/2023 2:55:42 PM Gender: F BP: 120/72 mmHg Height: 168.00 cm BSA: 2.21 m? Weight: 114.00 kg Tech: RED Referring MD: ALEXY WHELAN Site: [facility] [place] Location: Mobile-OP Patient Location: Outpatient. Procedure: 2D, Color Doppler and Spectral Doppler. Indication for study: Malignant Neoplasm Cardiac Rhythm: Regular.Study quality: Fair. Imaging limitations: This study was subject to imaging limitations due to tissue expanders. Final Impressions: 1. Normal left ventricular size, normal wall thickness, normal global systolic function, calcul ated EF of 62 %. 2. Right ventricular cavity size is normal, global systolic RV function is normal.3. Normal left atrium size. 4. The aortic [...] normal. The right atrium is normal. Right atrialvolume index is 11 ml/m?. Right atrial area is 11 cm?. The pulmonary artery is not well visualized. The sinus of Valsalva is normal sized. The ascending aorta is not well visualized. Valves, RVPressures and Diastolic Function The aortic valve is [...] well visualized. MEASUREMENTS AND CALCULATIONS 2-D Measurements andLV Function: LVID (d) 3.7 cm Planimetered EF 62 % LVID (s) 2.8 cm LV FS% (2D) 25 % IVS (d) 1.0 cm LVOT diameter 2.2 cm LVPW (d) 1.3 cm HR 75 bpm Ao Sinus 3.3 cm LA Vol index 23 ml/m2 LA 3.8 cm RA Volindex 11 ml/m2 RA area 11 cm? RV Max 4C (d) 2.7 cm Diastology: Mitral Tissue Doppler E Peak 1.1 m/s e', Septum 0.11 m/s A Peak 1.1 m/s e', Lateral 0.16 m/s E/A 1.0 E/e' Average 7.74 DT 225 msec Aortic Valve: Vmax 1.7 m/s BRENDAN (V) 2.75 cm? VTI 0.38 m BRENDAN (I) 2.56 cm? LVOT V max 1.3 m/s Max PG 11 mmHg LVOT VTI 0.27 m Mean PG 6 mmHg SV 98 ml Dim Index 0.70 SV index 44 ml/m? CO 7.3 l/min CI 3.3 l/min/m? Mitral Valve: MVA 3.4 cm? MV P 1/2 65 msec Tricuspid Valve and estimated PA pressures: TAPSE 2.7 cm . This study was interpreted by an [facility] accredited facility. CC: [facility] (med records) [facility]. Final No images are attached to the encounter. ASSESSMENT / PLAN #1 Acute Suppurative Otitis Media Without Spontaneous Rupture Recurrent Right Other orders - amoxicillin-pot clavulanate (AUGMENTIN) 875-125 mg per tablet; Take 1 tablet by mouth 2 (two) times a day., Starting 12/04/2023, Normal - fluticasone propionate (FLONASE) 50 mcg/actuation nasal spray; Administer 2 sprays into each nostril daily., Starting Mon12/04/2023, Normal - Family Medicine office visit (clinic); Future; Expected date: 12/11/2023 Acute otitis media right side. Start Augmentin. May also be contributing underlying Eustachian tubedysfunction recommend Flonase. Follow-up Family Practice 7-10 days for recheck to be sure symptoms have resolved consider referral to ENT if not improving. Perry Lundberg P.A.-C., P.A. 12/04/2023 12:03 PM CDT documented in this encounter Plan of Treatment Scheduled Referrals Name Type Priority Associated Diagnoses Orde r Schedule Family Medicine office visit (clinic) Outpatient Referral Routine Expected: 12/11/2023 (Approximate), Expires: 03/04/2025 documented as of this encounter Visit Diagnoses Diagnosis Acute Suppurative Otitis Media Without Spontaneous Rupture Recurrent Right- Primary documented in this encounter Additional Health Concerns Assessment Noted Time PHQ-9 Depression Total Score: 0 10/30/19 14 3:19 PM BELLMAN DRIVER documented as of this encounter Care Teams Modular Set Crew Member Relationship Specialty Start Date End Date Sola Kwan APRN, C.N.P., D.N.P. [address] [phone] PCP - General Family Medicine 05/24/22 documented as of this encounter
--- OUTSIDE RECORDS SUMMARY | 2023-12-07 11:54 | XMS_ITS | Encounter Summary ---
Author Name Unknown Organization [facility] Address [address] [place] [address] Care Team Providers Care Credit Cashier Name Role Phone Sola Kwan APRN, C.N.P., D.N.P. Primary Ca re Provider Reason for Visit * Reason Onset Date Comments Follow-up Orders 10/11/2023 Encounter Details Date Type Department Care Team (Latest Contact Info) Description 10/11/2023 Clinical Communication Division of Endocrinology in [place], [place] [address] [place] [address] Monet Gr, PDarenABilly [address] [place] [phone] Follow-up Orders Social History Tobacco Use Types Packs/Day Years [...] often do you attend chur ch or restorationist services? Never 07/27/2020 Do you belong to any clubs o r organizations such as orthodox groups, unions, fraternal or athletic groups, or [...] Answer Date Recorded PHQ-2 Score 0 09/29/2022 [facility] - Occupational Stress Questionnaire Answer Date [...] the money to buy more. Never true 09/14/20 23 Within the past 12 months, t [...] your living situation today? I have a [facility] place to live 05/11/2023 Education Answer [...] Total Score: 0 10/30/19 14 3:19 PM BUS TRANSPORTATION MANAGER documented as of this encounter Care Teams Credit Cashier Relationship Specialty Start Date End Date Sola Kwan APRN, C.N.P., D.N.P. [address] [place] [phone] PCP - General Family Medicine 05/24/22 documented as of this encounter
--- OUTSIDE RECORDS SUMMARY | 2023-12-07 11:54 | XMS_ITS | Encounter Summary ---
Author Name Unknown Organization [facility] Address [address] [place] [address] Care Team Providers Care Compressor Station Engineer Name Role Phone Sola Kwan APRN, C.N.P., D.N.P. Primary Ca re Provider Reason for Referral * Outpatient (Routine) - Authorized Specialty Diagnoses / Procedures Referred By Contac t Referred To Contact Diagnoses Follow Up Examination Postoperative Visit Procedures Tissue Expansion Latosha Allen APRN, C.N.P., D.N.P. [address] [place] [phone] [facility] Referral ID Status Reason Start Date Expiration Date V isits Requested Visits Authorized [id number] Authorized 10/05/2023 10/04/2024 1 1 RETTE Reason for Visit * Outpatient (Routine) - Closed Specialty Diagnoses / Procedures Referred By Contac t Referred To Contact Plastic Surgery Diagnoses NA Echo Cruz APRN, C.N.P., D.N.P. [address] [place] [phone] [facility] Referral ID Status Reason Start Date Expiration Date Visits Re quested Visits Authorized [id number] Closed 09/07/2023 09/06/2026 1 1 Encounter Details Date Type Department Care Team (Latest Contact Info) Description 10/05/2023 10:00 AM SOUBRETTE Office Visit Division of Plastic Surgery in [place], [place] [address] [place] [address] Latosha Allen APRN, C.N.P., D.N.P. [address] [place] [phone] Follow Up Examination Postoperative Visit (Primary Dx) Social History Tobacco Use Types Packs/Day Years [...] often do you attend chur ch or catholic services? Never 07/27/2020 Do you belong to any clubs o r organizations such as gnosticism groups, unions, fraternal or athletic groups, or [...] Answer Date Recorded PHQ-2 Score 0 09/29/2022 [facility] ional [facility] - Occupational Stress [...] as of this encounter Progress Notes * Latosha Allen APRN, C.N.P., D.N.P. - 10/05/2023 10:00 AM CSTAssociated Order(s): Tissue Expansion Post-Procedure Diagnose(s): Follow Up Examination Postoperative Visit SUBJECTIVE CHIEF COMPLAINT / REASON FOR VISIT Service of Dr. Leger Adela Slade is a 53 y.o. female who presents for breast expansion HISTORY OF PRESENT ILLNESS #1 Status post bilateral skin sparing mastectomy followed by placement of tissue expanders, with Dr. Leger, 07/18/2023 Adela Slade is a 53 y.o. female who presents for routine postoperative visit. The patient had a history of bilateral skin sparing mastectomy. She underwent placement of tissue expanders atthe time of her mastectomy with mentor 550 cc size tissue expanders. Today the patient is post op 11 weeks. Patient reports no pain. Denies signs and symptoms of infection. She has been undergoing chemotherapy once a week. Last session was 09/29. Labs were done on 10/04 showing a WBC of 7.8, neutrophils 71.9%. Patient is planning implant based reconstruction and desires to be larger thus continued expansion today. The patient reports that she will not need radiation. Patient will need chemotherapy for 8 more session. OBJECTIVE PHYSICAL EXAMINATION General: AOx3, in no acute distress. Breasts: Bilateral breasts appear symmetric, incisions are CDI. Normal lower pole hyperemia noted bilaterally. ASSESSMENT / PLAN #1 Status post bilateral skin sparing mastectomy followed by placement of tissue expanders, with Dr. Leger, 07/18/2023 It was a pleasure seeing the patient in clinic today. The following was discussed: The following was discussed and is our plan: -We expanded today to full capacity. She knows we can go 100 cc above the tissue cisco administrator capacity which is 550 cc. She feels that she is happy with her current size. I've encouraged her to reach outto Dr Leger's team to let them know she is done with her expansions but still has chemotherapy for 8 more weeks. -Signs/symptoms of an infection were reviewed with the patient and she was instructed to call us immediately if any of these occur. -Patient is aware [facility] Plastic Surgery recommends taking prophylactic antibiotics before dental/invasive procedures. Photos were obtained for record. All questions were asked and answered per patient report. Tissue Expansion Performed by: Latosha Allen APRN, C.N.P., D.N.P. Authorized by: Latosha Allen APRN, C.N.P., D.N.P. CONSENT Consent obtained: verbal Consent given by: patient The benefits, risks and alternatives to the procedure and the potential need for sedation or anesthesia as well as the names, roles, and responsibilities of healthcare team members performing significant interventional tasks were discussed with the patient and/or decision maker. PRE-PROCEDURE DETAILS Appropriate hand hygiene, gown, cap, mask, protective eyewear, sterile gloves, skin preparation, sterile drape, and strict aseptic technique were utilized as applicable for the procedure.: yes Skin preparation: povidone-iodine SEDATION / ANESTHESIA Anesthesia method: none POST-PROCEDURE DETAILS Post-procedure capillary refill < 3 seconds: yes Procedure completed successfully: yes Complications: no apparent complications COMMENTS Implant type: Wallula 550 cc Current cc: Right breast: 400 cc. CC instilled today: Right breast: 150 cc. Total cc: Right breast: 550 cc. Current cc: Left breast: 400 cc. CC instilled today: Left breast: 150 cc. Total cc: Left breast: 550 cc. Comments: The patient tolerated the tissue expansion(s) well. She had a good capillary refill and adequate skin laxity. RETTE documented in this encounter Plan of Treatment Not on file documented as of this encounter Procedures Procedure Name Priority Date/Time Associated Diagnosis Comments TISSUE EXPANSION Routine 10/05/2023 10:0 0 AM SOUBRETTE Follow Up Examination Postoperative Visit documented in this encounter Results * VT NO CHARGE VISIT (10/05/2023 10:00 AM SOUBRETTE) Narrative MMODAL - 10/05/2023 10:00 AM SOUBRETTE Latosha Allen APRN, Jerel.N.PDaren, D.N.P. ? 10/05/2023 10:29 AM Tissue Expansion Performed by: Latosha Allen APRN, C.N.PDaren, Yadira.N.P. Authorized by: Latosha Allen APRN, C.N.Mio, Yadira.N.P. ?? CONSENT Consent obtained: verbal Consent given by: patient The benefits, risks and alternatives to the procedure and the potential need for sedation or anesthesia as well as the names, roles, and responsibilities of healthcare team members performing significant interventional tasks were discussed with the patient and/or decision maker. PRE-PROCEDURE DETAILS Appropriate hand hygiene, gown, cap, mask, protective eyewear, sterile gloves, skin preparation, sterile drape, and strict aseptic technique were utilized as applicable for the procedure.: yes ?? Skin preparation: povidone-iodine SEDATION / ANESTHESIA Anesthesia method: none POST-PROCEDURE DETAILS Post-procedure capillary refill < 3 seconds: yes ?? Procedure completed successfully: yes ?? Complications: no apparent complications ?? COMMENTS Implant type: ??Wallula 550 cc Current cc: ??Right breast: 400 cc. CC instilled today: ??Right breast: 150 cc. Total cc: ??Right breast: ??550 cc. Current cc: ??Left breast: ??400 cc. CC instilled today: ??Left breast: ??150 cc. Total cc: ??Left breast: ??550 cc. Comments: The patient tolerated the tissue expansion(s) well. ??She had a good capillary refill and adequate skin laxity. Latosha Allen APRN, C.N.PDaren, D.N.P. [place] OCEDURE/MINOR SURGICAL ORDERABLES MMODAL NA documented in this encounter Visit Diagnoses Diagnosis Follow Up Examination Postoperative Visit- Primary documented in this encounter Additional Health Concerns Assessment Noted Time PHQ-9 Depression Total Score: 0 10/30/19 14 3:19 PM SOUBRETTE documented as of this encounter Care Teams Compressor Station Engineer Relationship Specialty Start Date End Date Sola Kwan APRN, C.N.P., D.N.P. [address] [phone] PCP - General Family Medicine 05/24/22 documented as of this encounter
--- OUTSIDE RECORDS SUMMARY | 2023-12-07 11:54 | XMS_ITS ---
Author Name Unknown Organization [facility] Address [address] [place] [address] Care Team Providers Care Retail Zone Specialist Name Role Phone Unavailable Unavailable Unavailable Surgery Details Not on file Complications Check Surgery Details section. Procedure Estimated Blood Loss Check Surgery Details section. Procedure Findings Check Surgery Details section. Procedure Specimens Taken Check Surgery Details section.
--- OUTSIDE RECORDS SUMMARY | 2023-12-07 11:54 | XMS_ITS | Encounter Summary ---
Author Name Unknown Organization [facility] Address [address] [place] [address] Care Team Providers Care Diagrammer And Seamer Name Role Phone Sola Kwan APRN, C.N.P., D.N.P. Primary Ca re Provider Encounter Details Date Type Department Care Team (Late st Contact Info) Description 09/05/2023 Clinical Communication Division of Plastic Surgery in [place], [place] [address] [place] [phone] Latosha Allen APRN, C.N.P., D.N.P. [address] [place] [phone] Social History Tobacco Use Types Packs/Day Years [...] often do you attend chur ch or muslim services? Never 07/27/2020 Do you belong to any clubs o r organizations such as rastafarian groups, unions, fraternal or athletic groups, or [...] Answer Date Recorded PHQ-2 Score 0 09/29/2022 [facility] Answer Date [...] your living situation today? I have a [facility] place to live 05/11/2023 Education Answer Date [...] encounter Miscellaneous Notes * Telephone Encounter - Latosha Allen APRN, C.N.P., D.N.P. - 09/05/2023 2:04 PM CST We spoke on the phone today in regards to how to plan her expansions. She has Covid and therefore will have chemotherapy on 09/11, 09/20, and 09/29, and then every Monday until therapy is complete. We will check with Dr Leger's team in regards to labs prior to expansion the day before therapy vs, proceeding with expansion if she is feeling well and then schedule her expansion. T END DRUPAL DEVELOPER documented in this encounter Plan of Treatment Not on file documented as of this encounter Visit Diagnoses Not on filedocumented in this encounter Additional Health Concerns Assessment Noted Time PHQ-9 Depression Total Score: 0 10/30/19 14 3:19 PM FRONT END DRUPAL DEVELOPER documented as of this encounter Care Teams Diagrammer And Seamer Relationship Specialty Start Date End Date Sola Kwan APRN, C.N.P., D.N.P. [address] [phone] PCP - General Family Medicine 05/24/22 documented as of this encounter
--- OUTSIDE RECORDS SUMMARY | 2023-12-07 11:54 | XMS_ITS | Referral Summary ---
Author Name Unknown Organization [facility] Address [address] [place] [address] Care Team Providers Care Histopath Tech Name Role Phone Sola Kwan APRN C.N.P., D.N.P. Primary Ca re Provider Source Comments Patient records contain information from all sites at [facility]. For routine questions regarding patient records, call [phone] during business hours, M-F 8:00 AM - 5:00 PM Central Time. Record requests for emergency care only can be directed to [phone] at any time.[facility] Encounters Date Type Department Care Team Description 12/04/2023 11:40 AM CDT Office Visit Express Care in [address] [phone] Perry Lundberg P.A.-C., P.A. Acute Suppurative Otitis Media Without Spontaneous Rupture Recurrent Right (Primary Dx) Discharge Disposition: Home or Self Care 11/05/2023 9:28 AM CDT - 11/05/2023 10:15 AM CDT Emergency [facility] [address] [place] [phone] Miki Perkins P.A.-C., P.A. Otitis Media Unspecified Right Ear (Primary Dx) Discharge Disposition: Home or Self Care 10/11/2023 Clinical Communication Division of Endocrinology in [place], [place] [address] [place] [address] Monet Gr P.A.-C. Follow-up Orders 10/10/2023 1:00 PM SSN/SSBN WEAPONS EQUIPMENT OPERATOR Telemedicine Division of Endocrinology in [place], [place] [address] [place] [phone] Monet Gr P.A.-C. Gastroesophageal Reflux Disease Without Esophagitis (Primary Dx); Obesity Body Mass Index 30-39.9 Adult; Impaired Fasting Glucose 10/09/2023 8:30 AM SSN/SSBN WEAPONS EQUIPMENT OPERATOR Clinical Communication Virtual Review in [place], [place] 200 [place] [address] Canceled 10/05/2023 Ancillary Procedure Department of Plastic and Reconstructive Surgery 10/05/2023 10:00 AM SSN/SSBN WEAPONS EQUIPMENT OPERATOR Office Visit Division of Plastic Surgery in [place], [place] [address] [place] [phone] Latosha Allen APRN, C.N.P., D.N.P. Follow Up Examination Postoperative Visit (Primary Dx) 09/07/2023 Clinical Communication Division of Plastic Surgery in [place], [place] [address] [place] [phone] Echo Cruz APRN, C.N.P., D.N.P. from Last 3 Months Allergies No known active allergies Medications Medication Sig Dispensed Refills Start Date End Date Status multivitamin capsule Take 1 tablet by mouth daily. 0 10/15/2012 Active ibuprofen/diphenhy dramine cit (ADVIL PM ORAL) Take by mouth at bedtime. 2-3 tabs 0 Active omeprazole (PriLOSEC) [address] capsule TAKE ONE CAPSULE BY MOUTH EVERY DAY 90 capsule 3 04/12/2023 Active acetaminophen (TYLENOL) 500 mg tablet Take 2 tablets (1,000 mg total) by mouth every 6 (six) hours. 0 07/18/2023 Active ibuprofen (ADVIL,MOTRIN) 200 mg tablet Take 3 tablets (600 mg total) by mouth every 8 (eight) hours as needed for pain. 0 07/20/2023 Active sennosides-docusat e sodium (SENOKOT-S) 8.6-50 mg per tablet Take 1 tablet by mouth 2 (two) times a day. 0 07/18/2023 Active oxyCODONE (ROXICODONE) 5 mg immediate release tabletIndications: Acute Pain Take 1 tablet (5 mg total) by mouth every 4 (four) hours as needed for pain Indication: Acute Pain. 10 tablet 0 07/18/2023 Active cefadroxil (DURICEF) 500 mg capsule Take 1 capsule (500 mg total) by mouth 2 (two) times a day. Take while drains remain in place. 25 capsule 0 07/18/2023 Active lidocaine-prilocai ne (EMLA) 2.5-2.5 % cream 0 09/07/2023 Active nitroglycerin (NITRO-BID) 2 % ointment Apply 0.5 inches topically every 6 (six) hours. 0 11/21/2012 Active ondansetron (ZOFRAN) 4 mg tablet 0 08/16/2023 Active prochlorperazine (COMPAZINE) 10 mg tablet 0 08/16/2023 Active semaglutide (WEGOVY) 0.25 mg/0.5 mL pen injector injection Inject 0.25 mg under the skin every 7 (seven) days. 2 mL 10/10/2023 Active semaglutide (WEGOVY) 0.5 mg/0.5 mL pen injector injection Inject 0.5 mg under the skin every 7 (seven) days. 2 mL 10/10/2023 Active semaglutide (WEGOVY) 1 mg/0.5 mL pen injector injection Inject 1 mg under the skin every 7 (seven) days. 2 mL 10/10/2023 Active semaglutide (Wegovy) 1.7 mg/0.75 mL pen injector injection Inject 1.7 mg under the skin every 7 (seven) days. 3 mL 10/10/2023 Active semaglutide (Wegovy) 2.4 mg/0.75 mL pen injector injection Inject 2.4 mg under the skin every 7 (seven) days. 9 mL 10/10/2023 Active phentermine-topira mate (Qsymia) 3.75-23 mg capsule, ER multiphase 24 hr ext release capsuleIndications :Obesity Body Mass Index 30-39.9 Adult Take 1 capsule by mouth daily. 14 capsule 0 10/24/2023 Active phentermine-topira mate (Qsymia) 7.5-46 mg capsule, ER multiphase 24 hr ext release capsuleIndications :Obesity Body Mass Index 30-39.9 Adult Take 1 capsule by mouth daily. 30 capsule 3 10/24/2023 Active amoxicillin-pot clavulanate (AUGMENTIN) 875-125 mg per tablet Take 1 tablet by mouth 2 (two) times a day. 20 tablet 0 12/04/2023 Active fluticasone propionate (FLONASE) 50 mcg/actuation nasal spray Administer 2 sprays into each nostril daily. 16 g 0 12/04/2023 Active amoxicillin-pot clavulanate (AUGMENTIN) 875-125 mg per tablet Take 1 tablet by mouth 2 (two) times a day for 7 days. 14 tablet 0 11/05/2023 11/12/2023 Active Problems Problem Noted Date Diagnosed Date Malignant Neoplasm Of Unspec ified Site Of Laterality Unknown Female Breast 08/04/2023 Cancer Staging:Pathologic stage from 07/18/2023:Stage IA(pT1a, pN0, cM0, G3, ER+, ID-, HER2+) - Signed by Candida Meyer M.B., B.Ch. on 08/04/2023 Intraductal Carcinoma In Situ Of Right Breast Obesity Body Mass Index 30-39.9 Adult 04/26/2022 Bite Dog Hand Open Sequela Right 09/19/2021 Exposure Rabies 09/19/2021 Screening Cancer Colon 06/07/2021 Overview: Added automatically from request for surgery [id number] Apnea Sleep Obstructive 06/07/2021 Impaired Fasting Glucose 09/12/2019 Gastroesophageal Reflux Disease NOS 05/26/2016 Epicondylitis Lateral Right 05/26/2016 Cervical Dysplasia Personal History 01/27/2015 Lesion Severe Squamous Intra epithelial Cervix (Severe Dysplasia) 12/09/2013 Pain Back Lumbar Pain Low Back Unspecified Immunizations Name Administration Dates Next Due HepB Adult (HEPLISAV-B) 09/29/2022 Influenza, Injectable, Quadrivalent 06/05/2015 Influenza, Unspecified 06/05/2015 RZV (SHINGRIX) 09/29/2022,06/14/2022 Rabies (Imovax) 10/03/2021, 2,09/22/2021,2021 SARS-COV-2 (COVID-19) - MODERNA(Discontinued) 02/12/2021,01/15/2021 SARS-COV-2 (COVID-19) - PFIZ ER BIVALENT TS(Discontinued)(12 YEARS OR OLDER) 06/14/2022 Td (Adult), adsorbed 09/28/2007 Tdap 09/17/2021,06/19/2015 influenza vaccine quad (FLUZONE/FLUARIX) (6 months and older)(PF) 06/14/2022 Social History Tobacco Use Types Packs/Day Years Used Date Smoking Tobacco: Never Smokeless Tobacco: Never Tobacco Cessation:Counseling Given: Not Answered Alcohol Use Standard Drinks/Week Comments Not Currently [...] often do you attend chur ch or quaker services? Never 07/27/2020 Do you belong to [...] Answer Date Recorded PHQ-2 Score 0 09/29/2022 [facility] - Occupational Stress Questionnaire Answer Date Recorded [...] Orientation Straight 05/03/2022 12 :49 PM CDT Last Filed Vital Signs Vital Sign Reading Time Taken Comments Blood Pressure 159/93 11/05/2023 10:05 AM CDT Pulse 89 11/05/2023 10:05 AM CDT Temperature 36.6 ??C (97.9 ??F) 11/05/2023 9:35 AM CD T Respiratory Rate 20 11/05/2023 10:05 AM CDT Oxygen Saturation 100% 11/05/2023 10:05 AM CDT Inhaled Oxygen Concentration - - Weight 113 kg (250 lb) 11/05/2023 9:33 AM CDT Height 169 cm (5' 6.54) 08/25/2023 10:03 AM SSN/SSBN WEAPONS EQUIPMENT OPERATOR Body Mass Index 39.71 08/25/2023 10:03 AM SSN/SSBN WEAPONS EQUIPMENT OPERATOR Plan of Treatment Not on file Medical Devices Implanted Type Area Fiberglass Fabricator Device Identifier Shelf Expiration Date Model / Serial / Lot Exp Brst Nacl Valencia Ayala 550 - [id number] - [id number] Implanted:Qt y: 1 on 07/18/2023 by Moe Leger M.D. at [facility] Breast Implant Right: Breast [employer] [id number] 11/24/2026 SCPX-135 / [id number] / [id number] Exp Brst Nacl Valencia Ayala 550 - [id number] - [id number] Implanted:Qt y: 1 on 07/18/2023 by Moe Leger M.D. at [facility] Breast Implant Left: Breast [employer] [id number] 06/11/2027 SCPX-135 / [id number] / [id number] Clp Hrzn Ti 6 Clp Dell - [id number] Implanted:Qt y: 1 on 07/18/2023 by Veronica Joy M.D. at [facility] Hardware e.g. pins/screws /rods [employer] [id number] 01/11/2028 [id number] / / [id number] Clp Hrzn Ti 6 Clp Dell - [id number] Implanted:Qt y: 1 on 07/18/2023 by Veronica Joy M.D. at [facility] Hardware e.g. pins/screws /rods [employer] [id number] 01/11/2028 [id number] / / [id number] Clp Hrzn Ti 24 Clp Dell - [id number] Implanted:Qt y: 1 on 07/18/2023 by Veronica Joy M.D. at [facility] Hardware e.g. pins/screws /rods [employer] [id number] 05/09/2028 [id number] / / [id number] Mrk Biop Tmr Q Shp [id number] - [id number] Implanted:Qt y: 1 on 04/26/2023 at [facility] Imaging Marker [employer] 10/25/2027 [id number] / / [id number] Mrk Biop Site - [id number] Implanted:Qt y: 1 on 05/10/2023 at [facility] Imaging Marker [employer] 10/26/2026 TUMARK-E 13-S-VIS ION / / [id number] Mrk Biop [facility] Brst Strtc 9ga - [id number] Implanted:Qt y: 1 on 05/10/2023 at [facility] Imaging Marker [employer] 01/21/2024 TRIMARK- EVIVA- [id number] Mrk Biop [facility] Brs Strtc 9ga - [id number] Implanted:Qt y: 1 on 05/10/2023 at [facility] Imaging Marker [employer] 01/21/2024 TRIMARK- EVIVA- [id number] Procedures Procedure Name Priority Date/Time Associated Diagnosis Comments TISSUE EXPANSION Routine 10/05/2023 10:0 0 AM SSN/SSBN WEAPONS EQUIPMENT OPERATOR Follow Up Examination Postoperative Visit PLASTIC AND RECON SURGERY IMAGE EXAM Routine 10/05/2023 12:00 AM SSN/SSBN WEAPONS EQUIPMENT OPERATOR from Last 3 Months Results * ID NO CHARGE VISIT (10/05/2023 10:00 AM SSN/SSBN WEAPONS EQUIPMENT OPERATOR) Narrative MMODAL - 10/05/2023 10:00 AM SSN/SSBN WEAPONS EQUIPMENT OPERATOR Latosha Allen APRN, C.N.PDaren, Yadira.N.P. ? 10/05/2023 10:29 AM Tissue Expansion Performed by: Latosha Allen APRN, C.N.PDaren, Yadira.N.P. Authorized by: Latosha Allen APRN, C.NFabien, Yadira.N.P. ?? CONSENT Consent obtained: verbal Consent [...] no apparent complications ?? COMMENTS Implant type: ??Lee 550 cc Current cc: ??Right breast: 400 cc. CC instilled today: ??Right breast: 150 cc. Total cc: ??Right breast: ??550 cc. Current cc: ??Left breast: ??400 cc. CC instilled today: ??Left breast: ??150 cc. Total cc: ??Left breast: ??550 cc. Comments: The patient tolerated the tissue expansion(s) well. ??She had a good capillary refill and adequate skin laxity. Jerel Jeong APRN.N.PDaren, D.N.P. ID OCEDURE/MINOR SURGICAL ORDERABLES MMODAL NA * Breast Expansion-Plastic And Recon Surgery Image Exam (10/05/2023 12:00 AM SSN/SSBN WEAPONS EQUIPMENT OPERATOR) Narrative II - 10/05/2023 11:49 AM SSN/SSBN WEAPONS EQUIPMENT OPERATOR This order has been created and auto-finalized to support the import of images acquired without order. The clinical documentation to support these images can be found on the encounter that produced images. Provider Not In System IMG NON RAD IMAGI NG PROCEDURES IIMS NA from Last 3 Months Administered Medications Care Teams Histopath Tech Relationship Specialty Start Date End Date Sola Kwan APRN, C.N.P., D.N.P. [id number] [place] [phone] PCP - General Family Medicine 05/24/22
--- OUTSIDE RECORDS SUMMARY | 2023-12-07 11:54 | XMS_ITS ---
Author Name Unknown Organization [facility] Address [address] [place] [address] Care Team Providers Care Unhairer Name Role Phone Sola Kwan APRN, C.N.P., D.N.P. Primary Ca re Provider Active Problems Problem Noted Date Diagnosed Date Malignant Neoplasm Of Unspec ified Site Of Laterality Unknown Female Breast 08/04/2023 Cancer Staging:Pathologic stage from 07/18/2023:Stage IA(pT1a, pN0, cM0, G3, ER+, WA-, HER2+) - Signed by Candida Meyer M.B., B.Ch. on 08/04/2023 Intraductal Carcinoma In Situ Of Right Breast Obesity Body Mass Index 30-39.9 Adult 04/26/2022 Bite Dog Hand Open Sequela Right 09/19/2021 Exposure Rabies 09/19/2021 Screening Cancer Colon 06/07/2021 Overview: Added automatically from request for surgery [id number] Apnea Sleep Obstructive 06/07/2021 Impaired Fasting Glucose 09/12/2019 Gastroesophageal Reflux Disease NOS 05/26/2016 Epicondylitis Lateral Right 05/26/2016 Cervical Dysplasia Personal History 01/27/2015 Lesion Severe Squamous Intra epithelial Cervix (Severe Dysplasia) 12/09/2013 Pain Back Lumbar Pain Low Back Unspecified Current Oncology Plans No current plan information found. Past Plans Radiation Treatments * No radiation treatments are documented for this patient in [facility]. Treatments may have been administered in another system. Lifetime Dose Tracking * Chemical Lifetime Dose Automatic Entry Manual Entr y Radiation 75.63 mGy 75.63 mGy 0 mGy Fluoro Time 1.8 minutes 1.8 minutes 0 minutes
--- OUTSIDE RECORDS SUMMARY | 2023-12-07 11:54 | XMS_ITS | Encounter Summary ---
Author Name Unknown Organization [facility] Address [address] [place] [address] Care Team Providers Care Manufacturing Operations Manager Name Role Phone Sola Kwan APRN, C.N.P., D.N.P. Primary Ca re Provider Encounter Details Date Type Department Care Team (Late st Contact Info) Description 10/05/2023 Ancillary Procedure Department of Plastic and Reconstructive Surgery Social History Tobacco Use Types Packs/Day Years [...] often do you attend chur ch or mandaen services? Never 07/27/2020 Do you belong to [...] Answer Date Recorded PHQ-2 Score 0 09/29/2022 [facility] - Occupational [...] Procedure Name Priority Date/Time Associated Diagnosis Comments PLASTIC AND RECON SURGERY IMAGE EXAM Routine 10/05/2023 12:00 AM PLATING TECHNICIAN documented in this encounter Results * Breast Expansion-Plastic And Recon Surgery Image Exam (10/05/2023 12:00 AM PLATING TECHNICIAN) Narrative IIMS - 10/05/2023 11:49 AM PLATING TECHNICIAN This order has been created and auto-finalized to support the import of images acquired without order. The clinical documentation to support these images can be found on the encounter that produced images. Provider Not In System IMG NON RAD IMAGI NG PROCEDURES IISC NA documented in this encounter Visit Diagnoses Not on filedocumented in this encounter Additional Health Concerns Assessment Noted Time PHQ-9 Depression Total Score: 0 10/30/19 14 3:19 PM PLATING TECHNICIAN documented as of this encounter Care Teams Manufacturing Operations Manager Relationship Specialty Start Date End Date Sola Kwan APRN, C.N.P., D.N.P. [id number] [phone] PCP - General Family Medicine 05/24/22 documented as of this encounter
--- OUTSIDE RECORDS SUMMARY | 2023-12-07 11:54 | XMS_ITS | Encounter Summary ---
Author Name Unknown Organization [facility] Address [address] [place] [address] Care Team Providers Care Microfilm Operator Name Role Phone Sola Kwan APRN, C.N.P., D.N.P. Primary Ca re Provider Reason for Visit * Reason Comments Ear Problem Sinus Problem 53 yo presents to [facility] ED via private vehicle with c/o right ear pain and sinus congestion, patient reports symptoms started . Patient had chemo on Monday and was advised to be evaluated if symptoms continue or worsen. Encounter Details Date Type Department Care Team (Late st Contact Info) Description 11/05/2023 9:28 AM CDT - 11/05/2023 10:15 AM CDT Emergency [facility] [address] [place] [phone] Miki Perkins P.A.-Jerel., P.A. [address] [place] [phone] Otitis Media Unspecified Right Ear (Primary Dx) [...] often do you attend chur ch or adventism services? Never 07/27/2020 Do you belong to any clubs o r organizations such as congregational groups, unions, fraternal or athletic groups, or [...] Answer Date Recorded PHQ-2 Score 0 09/29/2022 [facility] Occupat ional [facility] - Occupational Stress [...] your living situation today? I have a [facility] place to live 05/11/2023 Education Answer [...] (250 lb) 11/05/2023 9:33 AM CDT Height - - Body Mass Index 39.71 08/25/2023 10:03 AM SUBSTATION DESIGNER documented in this encounter Discharge Instructions * Discharge Instructions* Miki Perkins P.A.-C., P.A. - 11/05/2023 9:57 AM CDT Antibiotics sent to your pharmacy of choice, please use as directed. [facility] your oncologist in regards to this recent visit. If you have any new or worsening symptoms, please return promptly back to the emergency department. See below for further details You were examined and treated today in the [facility] Emergency Department (ED) on an emergency basis. This visit is not a substitute for comprehensive and ongoing medical care. In most cases, you must let your primary physician evaluate you again. Call your doctor today to advise them ofyour ED visit and arrange for out patient follow up. Tell your doctor about any new or lasting problems. After you leave the ED today, please follow the instructions provided to you. Return to the Emergency Department for new, or worsening such as: You have pain that is not helped with medicine. You have swelling, redness, or pain around your ear. You get a stiff neck. You cannot move part of your face (paralysis). You notice that the bone behind your ear hurts when you touch it. You get a very bad headache. You have a very bad headache. You cannot stop vomiting. You have very bad pain or swelling around your face or eyes. You have trouble seeing. You feel confused. Your neck is stiff. You have trouble breathing. These symptoms may be an emergency. Get help right away. Call 911. Do not wait to see if the symptoms will go away. Do not drive yourself to the hospital. TYLENOL (also called acetaminophen) Tylenol is a very good drug that can be purchased without a prescription. It is a strong pain reliever and fever ingredient handler. Dose: Acetaminophen 500 mg tablets - take 1 or 2 tablets by mouth 3-4 times daily only as needed. Do not take more than 4000 mg (which is 8 of the 500 mg pills) in any 24-hour period. Do not take themedicine for longer than 5 days without seeing a doctor. If you feel you need the medicine longer than 5 days, call your doctor to discuss the situation. -Do not continue this medication indefinitely. Taking this medication for prolonged period of time can have adverse effects such as damage to the liver, and bleeding in the stomach. -Stop this medication IMMEDIATELY and call your doctor if you notice any abdominal pain, nausea/vomiting, or dark or bloody stools. IBUPROFEN (also called Motrin or Advil) Ibuprofen is a very good drug and can be purchased without a prescription. It is a strong pain reliever, fever ingredient handler, and anti-inflammatory (reduce the swelling). Dose: Ibuprofen 200 mg tablets -take 3-4 tablets by mouth 3 times daily for 5 to 7 days. If you feel you need the medicine longer than this, call your doctor to discuss the situation. Do not take more than 2400 mg (which is 12 of the 200 mg tablets) in any 24-hour period. -Do not continue this medication indefinitely. If taking this medication for a prolonged period of time can have adverse effects such as elevation of blood pressure, bleeding in the stomach, and kidney damage. -Stop this medication IMMEDIATELY and call your doctor if you notice any abdominal pain, nausea/vomiting, or dark or bloody stools. * Attachments The following attachments cannot be sent through Care Everywhere. * Otitis Media Adult [id number] ([place]ese) * Sinus Infection Adult [id number] ([place]) documented in this encounter Medications at Time of Discharge Medication Sig Dispensed Refills Start Date End Date acetaminophen (TYLENOL) 500 mg tablet Take 2 tablets (1,000 mg total) by mouth every 6 (six) hours. 0 07/18/2023 cefadroxil (DURICEF) 500 mg capsule Take 1 capsule (500 mg total) by mouth 2 (two) times a day. Take while drains remain in place. 25 capsule 0 07/18/2023 ibuprofen (ADVIL,MOTRIN) 200 mg tablet Take 3 tablets (600 mg total) by mouth every 8 (eight) hours as needed for pain. 0 07/20/2023 ibuprofen/diphenhydram ine cit (ADVIL PM ORAL) Take by mouth at bedtime. 2-3 tabs 0 lidocaine-prilocaine (EMLA) 2.5-2.5 % cream 0 09/07/2023 multivitamin capsule Take 1 tablet by mouth daily. 0 10/15/2012 nitroglycerin (NITRO-BID) 2 % ointment Apply 0.5 inches topically every 6 (six) hours. 0 11/21/2012 omeprazole (PriLOSEC) [address] capsule TAKE ONE CAPSULE BY MOUTH EVERY DAY 90 capsule 3 04/12/2023 ondansetron (ZOFRAN) 4 mg tablet 0 08/16/2023 oxyCODONE (ROXICODONE) 5 mg immediate release tabletIndications:Acut e Pain Take 1 tablet (5 mg total) by mouth every 4 (four) hours as needed for pain Indication: Acute Pain. 10 tablet 0 07/18/2023 phentermine-topiramate (Qsymia) 3.75-23 mg capsule, ER multiphase 24 hr ext release capsuleIndications:Obe sity Body Mass Index 30-39.9 Adult Take 1 capsule by mouth daily. 14 capsule 0 10/24/2023 phentermine-topiramate (Qsymia) 7.5-46 mg capsule, ER multiphase 24 hr ext release capsuleIndications:Obe sity Body Mass Index 30-39.9 Adult Take 1 capsule by mouth daily. 30 capsule 3 10/24/2023 prochlorperazine (COMPAZINE) 10 mg tablet 0 08/16/2023 semaglutide (WEGOVY) 0.25 mg/0.5 mL pen injector injection Inject 0.25 mg under the skin every 7 (seven) days. 2 mL 11 10/10/2023 semaglutide (WEGOVY) 0.5 mg/0.5 mL pen injector injection Inject 0.5 mg under the skin every 7 (seven) days. 2 mL 11 10/10/2023 semaglutide (WEGOVY) 1 mg/0.5 mL pen injector injection Inject 1 mg under the skin every 7 (seven) days. 2 mL 11 10/10/2023 semaglutide (Wegovy) 1.7 mg/0.75 mL pen injector injection Inject 1.7 mg under the skin every 7 (seven) days. 3 mL 11 10/10/2023 semaglutide (Wegovy) 2.4 mg/0.75 mL pen injector injection Inject 2.4 mg under the skin every 7 (seven) days. 9 mL 11 10/10/2023 sennosides-docusate sodium (SENOKOT-S) 8.6-50 mg per tablet Take 1 tablet by mouth 2 (two) times a day. 0 07/18/2023 amoxicillin-pot clavulanate (AUGMENTIN) 875-125 mg per tablet Take 1 tablet by mouth 2 (two) times a day for 7 days. 14 tablet 0 11/05/2023 11/12/2023 documented as of this encounter ED Notes * Miki Perkins P.A.-C., P.A. - 11/05/2023 9:58 AM CDT SUBJECTIVE CHIEF COMPLAINT/REASON FOR VISIT Ear Problem and Sinus Problem (53 yo presents to the ED via private vehicle with c/o right ear painand sinus congestion, patient reports symptoms started . Patient had chemo on Monday and was advised to be evaluated if symptoms continue or worsen. ) HISTORY OF PRESENT ILLNESS Adela Slade is a 53 y.o. female presenting to the emergency department for concerns of ear pain and sinus congestion. Comorbidities include: Breast cancer (undergoing chemotherapy), GERD. Patient states that , she started developing right ear pain along with sinus congestion. Following Monday, she did undergo chemotherapy in [place]. Nursing staff at the chemotherapy in [place], instructed the patient did see a provider in regards to her ear cox sinus congestion given her immunocompromise status. She has been taking NyQuil however this is not helped her pain. She denies any fever, chills, nausea, vomiting, headache. She endorses purulent rhinorrhea. Deny ear drainage. REVIEW OF SYSTEMS OBJECTIVE Initial Vitals Temperature 11/05/23 0935 36.6 ??C Pulse Rate 11/05/23 0935 86 Heart Rate -- Resp Rate 11/05/23 0935 20 Blood Pressure 11/05/23 0935 (!) 154/101 SpO2 11/05/23 0935 99 % Pain Score 11/05/23 0933 3 PHYSICAL EXAMINATION Constitutional: Nursing note and vitals reviewed. Vital signs are normal. She is cooperative. No distress. HENT: Head: Normocephalic and atraumatic. Head is without raccoon's eyes and without laceration. There is normal jaw occlusion. Nose: Nose normal. No rhinorrhea. Tenderness to palpation over the maxillary and frontal sinuses. EOMs intact bilaterally. Right ear,tympanic membrane erythematous and bulging. No foreign body appreciated. No mastoid tenderness. No auditory canal swelling. Eyes: Conjunctivae, EOM and lids are normal. Periorbital area normal appearing. Neck: Full range of motion neck, no nuchal rigidity. No meningismus signs. Pulmonary/Chest: Effort normal. No respiratory distress. Breath sounds present bilaterally, clear to auscultation. Abdominal: Soft, nontender nondistended. Musculoskeletal: Cervical back: Full passive range of motion without pain. Neurological: Alert. EOMs intact, PERRLA. Skin: Skin is warm and dry. ASSESSMENT/PLAN Assessment and Plan In brief, this is a 53-year-old female presenting to the emergency department for concerns of ear pain and sinus congestion. Differential includes but not limited to acute otitis media, acute otitis externa, bacterial versus viral sinusitis, mastoiditis, malignant otitis externa. On exam, patient is well- appearing, no acute distress. Vitals other than the elevated blood pressure or unremarkable. Afebrile, nontoxic appearing. Erythematous right tympanic membrane is appreciated on examination when compared to left. Frontal sinus and maxillary tenderness upon percussion. Considered meningitis however patient denies any neck stiffness, neck pain or fever. She was alert and oriented. No mastoid tenderness. At this time, given the patient's immunocompromise status i.e. chemotherapy, we will treat with 7 days of Augmentin. She was instructed to follow up with her primary care provider and oncologist in regards to this recent visit. If she has any new or worsening symptoms, she understands that she should promptly return back to the nearest emergency department. Patient verbalized understanding. At this time, patient discharged in stable ambulatory condition.. Final Diagnoses: as of 11/05/23 0958 Otitis Media Unspecified Right Ear Miki Perkins P.A.-C., P.A. 11/05/23 1003 documented in this encounter Plan of Treatment Not on file documented as of this encounter Visit Diagnoses Diagnosis Otitis Media Unspecified Right Ear- Primary documented in this encounter Additional Health Concerns Assessment Noted Time PHQ-9 Depression Total Score: 0 10/30/19 14 3:19 PM SUBSTATION DESIGNER documented as of this encounter Care Teams Microfilm Operator Relationship Specialty Start Date End Date Sola Kwan APRN, C.N.P., D.N.P. [address] [phone] PCP - General Family Medicine 05/24/22 documented as of this encounter
--- OUTSIDE RECORDS SUMMARY | 2023-12-07 11:54 | XMS_ITS | Clinical Summary ---
Author Name Unknown Organization [facility] Address [address] [place] [address] Care Team Providers Care Personnel Administrator Name Role Phone Sola Kwan APRN, C.N.P., D.N.P. Primary Ca re Provider Source Comments Patient records contain information from all sites at [facility]. For routine questions regarding patient records, call [phone] during business hours, M-F 8:00 AM - 5:00 PM Central Time. Record requests for emergency care only can be directed to [phone] at any time.[facility] Allergies No known active allergies Medications Medication [...] from 07/18/2023:Stage IA(pT1a, pN0, cM0, G3, ER+, UT-, HER2+) - Signed by Candida Meyer M.B., B.Ch. on 08/04/2023 Intraductal Carcinoma In Situ Of Right Breast Obesity Body Mass Index 30-39.9 Adult 04/26/2022 Bite Dog Hand Open Sequela Right 09/19/2021 Exposure Rabies 09/19/2021 Screening Cancer Colon 06/07/2021 Overview: Added automatically from request for surgery [id number] Apnea Sleep Obstructive 06/07/2021 Impaired Fasting Glucose 09/12/2019 Gastroesophageal Reflux Disease NOS 05/26/2016 Epicondylitis Lateral Right 05/26/2016 Cervical Dysplasia Personal History 01/27/2015 Lesion Severe Squamous Intra epithelial Cervix (Severe Dysplasia) 12/09/2013 Pain Back Lumbar Pain Low Back Unspecified Encounters Date Type Department Care Team Description 12/04/2023 11:40 AM CDT Office Visit Express Care in [address] [phone] Perry Lundberg P.A.-C., P.A. Acute Suppurative Otitis Media Without Spontaneous Rupture Recurrent Right (Primary Dx) Discharge Disposition: Home or Self Care 11/05/2023 9:28 AM CDT - 11/05/2023 10:15 AM CDT Emergency [facility] [address] [place] [phone] Miki Perkins P.A.-C., P.A. Otitis Media Unspecified Right Ear (Primary Dx) Discharge Disposition: Home or Self Care 10/11/2023 Clinical Communication Division of Endocrinology in [address] [phone] Monet Gr P.A.-C. Follow-up Orders 10/10/2023 1:00 PM TALLOW PUMPER Telemedicine Division of Endocrinology in [address] [phone] Monet Gr P.A.-C. Gastroesophageal Reflux Disease Without Esophagitis (Primary Dx); Obesity Body Mass Index 30-39.9 Adult; Impaired Fasting Glucose 10/09/2023 8:30 AM TALLOW PUMPER Clinical Communication Virtual Review in [address] [address] Canceled 10/05/2023 10:00 AM TALLOW PUMPER Office Visit Division of Plastic Surgery in [address] [phone] Latosha Allen APRN, C.N.P., D.N.P. Follow Up Examination Postoperative Visit (Primary Dx) 10/05/2023 Ancillary Procedure Department of Plastic and Reconstructive Surgery 09/07/2023 Clinical Communication Division of Plastic Surgery in [address] [phone] Echo Cruz APRN, C.N.P., D.N.P. from Last 3 Months Immunizations Name Administration Dates Next Due HepB Adult (HEPLISAV-B) 09/29/2022 Influenza, Injectable, Quadrivalent 06/05/2015 Influenza, Unspecified 06/05/2015 RZV (SHINGRIX) 09/29/2022,06/14/2022 Rabies (Imovax) 10/03/2021,,09/22/2021,2021 SARS-COV-2 (COVID-19) - MODERNA(Discontinued) 02/12/2021,01/15/2021 SARS-COV-2 (COVID-19) - PFIZ ER BIVALENT TS(Discontinued)(12 YEARS OR OLDER) 06/14/2022 Td (Adult), adsorbed 09/28/2007 Tdap 09/17/2021,06/19/2015 influenza vaccine quad (FLUZONE/FLUARIX) (6 months and older)(PF) 06/14/2022 Family History Medical History Relation Name Comments Enlarged prostate Father not cancer Hearing loss Father Skin Father Possible skin c ancer. Breast lump Mother Patient is unsu re if it was breast cancer, but it was removed. Diabetes Mother Parkinson disease Mother's Brother Breast cancer Other 2 Maternal great aunt, under 50. Diabetes Son 1 Type 1 Relation Name Status Comments Father Alive No cancer Father's Brother 1 No cancer Father's Brother 2 No cancer Father's Sister No cancer Half-Sister 1 Alive >53No cancer Half-Sister 2 Alive >53No cancer Half-Sister 3 Alive >53No cancer Maternal Grandfather No info Maternal Grandmother No canc er Mother Alive Mother's Brother Alive No cancer Mother's Sister Alive No cancer Other 1 Other 2 Other 3 Other 4 Paternal Grandfather No canc er Paternal Grandmother No canc er Sister Alive No cancer Son 1 Alive Son 2 Alive Son 3 Alive Social History Tobacco Use Types Packs/Day Years [...] often do you attend chur ch or gnosticist services? Never 07/27/2020 Do you belong to [...] Answer Date Recorded PHQ-2 Score 0 09/29/2022 [facility] - Occupational Stress Questionnaire Answer Date [...] your living situation today? [facility] 05/11/2023 Education Answer [...] 169 cm (5' 6.54) 08/25/2023 10:03 AM TALLOW PUMPER Body Mass Index 39.71 08/25/2023 10:03 AM TALLOW PUMPER Plan of Treatment Health Maintenance Due Date Last Done Comments CT Colonography 1970 Cologuard 1970 FIT 1970 HIV Screening 1970 Hepatitis C Screening 1970 Pneumococcal vaccine (0-64 years) (1 of 2 - PCV) 1975 Hepatitis B Vaccines (2 of 2 - CpG (Heplisav) 2-dose series) 10/27/2022 09/29/2022 COVID-19 Vaccine (4 - season) 2023 06/14/2022, 02/12/2021, 01/15/2021 Influenza Vaccine (#1) 2023 , 06/05/2015, 06/05/2015 Depression Screening (Annual PHQ-2) 08/28/2023 Fasting Glucose for Diabetes Screening 07/21/2024 07/21/2023, 09/29/2022, 06/07/2021, Additional history exists Lipid (Cholesterol) Screening 09/12/2024 09/12/2019, 10/15/2012 DTaP,Tdap,and Td Vaccines (3 - Td or Tdap) 09/17/2031 09/17/2021, 06/19/2015, 09/28/2007 Colonoscopy 04/19/2033 04/19/2023 Colorectal Cancer Screening 04/19/2033 Zoster Vaccines Completed 09/29/2022, 06/14/2022 Mammogram Discontinued 05/02/2023, 03/29, 03/07/2023, Additional history exists HPV Vaccines Aged Out No longer eligi ble based on patient's age to complete this topic Medical Devices Implanted Type Area Patient Scheduling Coordinator Device Identifier Shelf Expiration Date Model / Serial / Lot Exp Brst [place] 550cc - [id number] - [id number] Implanted:Qt y: 1 on 07/18/2023 by Moe Leger M.D. at [facility] Breast Implant Right: Breast [place] [employer] [id number] 11/24/2026 SCPX-135 / [id number] / [id number] Exp Brsmanny [place] Md 550 - [id number] - [id number] Implanted:Qt y: 1 on 07/18/2023 by Moe Leger M.D. at [facility] Breast Implant Left: Breast EPIS [id number] 06/11/2027 SCPX-135 / [id number] / [id number] Clp Hrzn Ti 6 Clp Md Dell - [id number] Implanted:Qt y: 1 on 07/18/2023 by Veronica Joy M.D. at [facility] Hardware e.g. pins/screws /rods [employer] [id number] 01/11/2028 [id number] / / [id number] Clp Hrzn Ti 6 Clp Md Dell - [id number] Implanted:Qt y: 1 on 07/18/2023 by Veronica Joy M.D. at [facility] Hardware e.g. pins/screws /rods [employer] [id number] 01/11/2028 [id number] / / [id number] Clp Hrzn Ti 24 Clp Md Dell - [id number] Implanted:Qt y: 1 on 07/18/2023 by Veronica Joy M.D. at [facility] Hardware e.g. pins/screws /rods [employer] [id number] 05/09/2028 [id number] / / [id number] Mrk Biop Tmr Q Shp [id number] - [id number] Implanted:Qt y: 1 on 04/26/2023 at [facility] [employer] 10/25/2027 [id number] / / [id number] Mrk Biop Site - [id number] Implanted:Qt y: 1 on 05/10/2023 at [facility] [employer] 10/26/2026 TUMARK-E 13-S-VIS ION / / [id number] Mrk Biop [facility] Strtc 9ga - [id number] Implanted:Qt y: 1 on 05/10/2023 at [facility] [employer] 01/21/2024 TRIMARK- EVIVA-13 / / [id number] Mrk Biop [facility] Strtc 9ga - [id number] Implanted:Qt y: 1 on 05/10/2023 at [facility] [employer] 01/21/2024 DAWN LOUIS- [id number] Procedures Procedure Name Priority Date/Time Associated Diagnosis Comments TISSUE EXPANSION Routine 10/05/2023 10:0 0 AM TALLOW PUMPER Follow Up Examination Postoperative Visit PLASTIC AND RECON SURGERY IMAGE EXAM Routine 10/05/2023 12:00 AM TALLOW PUMPER from Last 3 Months Results * UT NO CHARGE VISIT (10/05/2023 10:00 AM TALLOW PUMPER) Narrative MMODAL - 10/05/2023 10:00 AM TALLOW PUMPER Latosha Allen APRN, C.N.PDaren, D.N.P. ? 10/05/2023 10:29 AM Tissue Expansion Performed by: Latosha Allen APRN, C.N.PDaren, D.N.P. Authorized by: Latosha Allen APRN, Jerel.N.PDaren, D.N.P. ?? CONSENT Consent obtained: verbal Consent given [...] no apparent complications ?? COMMENTS Implant type: ??[place] 550 cc Current cc: ??Right breast: 400 cc. CC instilled today: ??Right breast: 150 cc. Total cc: ??Right breast: ??550 cc. Current cc: ??Left breast: ??400 cc. CC instilled today: ??Left breast: ??150 cc. Total cc: ??Left breast: ??550 cc. Comments: The patient tolerated the tissue expansion(s) well. ??She had a good capillary refill and adequate skin laxity. Latosha Allen APRN, C.N.P., D.N.P. UT OCEDURE/MINOR SURGICAL ORDERABLES Performing Organization Address City/[facility] Co de Phone Number MMODAL NA * Breast Expansion-Plastic And Recon Surgery Image Exam (10/05/2023 12:00 AM TALLOW PUMPER) Narrative IIMS - 10/05/2023 11:49 AM TALLOW PUMPER This order has been created and auto-finalized to support the import of images acquired without order. The clinical documentation to support these images can be found on the encounter that produced images. Provider Not In System IMG NON RAD IMAGI NG PROCEDURES Performing Organization Address [facility] Co de Phone Number IIMS NA from Last 3 Months Care Teams Personnel Administrator Relationship Specialty Start Date End Date Sola Kwan APRN, C.N.P., D.N.P. [address] [phone] PCP - General Family Medicine 05/24/22
--- OUTSIDE RECORDS SUMMARY | 2023-12-07 11:55 | XMS_ITS | Referral Summary ---
Author Name Unknown Organization [facility] Address [address] [place] [address] Care Team Providers Care Care Director Rn Name Role Phone No Ref-Primary, Physician Primary Care Provider Allergies No known active allergies Medications Medication Sig Dispensed Refills Start Date End Date Status TYLENOL/CODEINE #3 300-30 MG OR TABSIndications:Cervic algia 1-2 TABS PO Q4-6 HRS PRN PAIN, no driving 20 0 10/18/2005 Active Social History Tobacco Use Types Packs/Day Years Used Date Smoking Tobacco: Never Smokeless Tobacco: Never Alcohol Use Standard Drinks/Week Comments Not Asked 0 (1 standard drink = 0.6 oz pur e alcohol) Sex and Gender Information Value Date Recorded Sex Assigned at Not on file Gender Identity Not on file Sexual Orientation Not on file Last Filed Vital Signs Vital Sign Reading Time Taken Comments Blood Pressure 118/78 09/29/2018 10:31 AM MEMORIAL ADVISER Pulse 64 09/29/2018 10:31 AM MEMORIAL ADVISER Temperature 36.7 ??C (98 ??F) 09/29/2018 10:31 AM MEMORIAL ADVISER Respiratory Rate 16 09/29/2018 10:31 AM MEMORIAL ADVISER Oxygen Saturation 98% 09/29/2018 10:31 AM MEMORIAL ADVISER Inhaled Oxygen Concentration - - Weight 98.4 kg (217 lb) 10/18/2005 1:30 PM MEMORIAL ADVISER Height - - Body Mass Index - - Plan of Treatment Not on file Care Teams Care Director Rn Relationship Specialty Start Date End Date No Ref-Primary, Physician PCP - General 09/29/18
--- OUTSIDE RECORDS SUMMARY | 2023-12-07 11:55 | XMS_ITS | Encounter Summary ---
Author Name Unknown Organization [facility] Address [address] [place] [address] Care Team Providers Care Student Accounts Manager Name Role Phone Sola Kwan APRN, C.N.P., D.N.P. Primary Ca re Provider Encounter Details Date Type Department Care Team (Late st Contact Info) Description 08/11/2023 Clinical Communication Department of Oncology in [place], [place] [address] [place] [address] Thanh Alvares M.D. [address] [place] [phone] Social History Tobacco Use Types Packs/Day Years [...] often do you attend chur ch or baptist services? Never 07/27/2020 Do you belong to any clubs o r organizations such as episcopal groups, unions, fraternal or athletic groups, or [...] Answer Date Recorded PHQ-2 Score 0 09/29/2022 [facility] Occup[facility] Health - Occupational Stress [...] your living situation today? 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 [address] [phone] PCP - General Family Medicine 05/24/22 documented as of this encounter
--- OUTSIDE RECORDS SUMMARY | 2023-12-07 11:55 | XMS_ITS | Encounter Summary ---
Author Name Unknown Organization [facility] Address [address] [place] [address] Care Team Providers Care Assistant Associate Full Professor Name Role Phone Sola Kwan APRN, C.N.P., D.N.P. Primary Ca re Provider Encounter Details Date Type Department Care Team (Late st Contact Info) Description 09/05/2023 Clinical Communication Division of Plastic Surgery in [place], [place] [address] [place] [phone] Latosha Allen APRN, C.N.P., D.N.P. [address] [place] [phone] Social History Tobacco Use Types Packs/Day Years [...] any clubs o r organizations such as mormon groups, unions, fraternal or athletic groups, or [...] Answer Date Recorded PHQ-2 Score 0 09/29/2022 [facility] Questionnaire Answer Date Recorded [...] Total Score: 0 10/30/19 14 3:19 PM DELIMER documented as of this encounter Care Teams Assistant Associate Full Professor Relationship Specialty Start Date End Date Sola Kwan APRN, C.N.P., D.N.P. [address] [phone] PCP - General Family Medicine 05/24/22 documented as of this encounter
--- OUTSIDE RECORDS SUMMARY | 2023-12-07 11:55 | XMS_ITS | Continuity of Care Document ---
Author Name Unknown Organization [facility] Address [address] [place] [address] Phone Care Team Providers Care Retail Inventory Control Clerk Name Role Phone Unavailable Unavailable Unavailable Procedures Procedure Date Office consultation, moderate 6 X-ray exam of neck spine, 4+ views Advance Directives Directive Yes / No Effective Date File Name No Information Encounters Encounter Description Practice Location Reason(s) For Visit Diagnoses Date Provider Providers Copied on Encounter [facility], [address] [place] [address], [facility], tel:[phone] [employer] No Information 0 8 No Information Office consultation, moderate [facility], [address] [place] [address], [facility], tel:[phone] [employer] No Information 6 Mehbod Amir. [facility], [address] [address], [place], [place], [id number], [place]. tel:[phone] Referring Provider: Teena Wilson, [facility] [address], [place], [address]. tel:[phone] Family History Family Member Type Diagnosis Age [...]
--- OUTSIDE RECORDS SUMMARY | 2023-12-07 11:55 | XMS_ITS | Clinical Summary ---
Author Name Unknown Organization [facility] Address [address] [place] [address] Care Team Providers Care Wooden Shade Hardware Installer Name Role Phone No Ref-Primary, Physician Primary Care Provider Allergies No known active allergies Medications Medication Sig Dispensed Refills Start Date End Date Status TYLENOL/CODEINE #3 300-30 MG OR TABSIndications:Cervic algia 1-2 TABS PO Q4-6 HRS PRN PAIN, no driving 20 0 10/18/2005 Active Family History Medical History Relation Comments Diabetes Mother Relation Status Comments Mother Social History Tobacco Use Types Packs/Day Years [...] Comments Blood Pressure 118/78 09/29/2018 10:31 AM BANK GUARD Pulse 64 09/29/2018 10:31 AM BANK GUARD Temperature 36.7 ??C (98 ??F) 09/29/2018 10:31 AM BANK GUARD Respiratory Rate 16 09/29/2018 10:31 AM BANK GUARD Oxygen Saturation 98% 09/29/2018 10:31 AM BANK GUARD Inhaled Oxygen Concentration - - Weight 98.4 kg (217 lb) 10/18/2005 1:30 PM BANK GUARD Height - - Body Mass Index - - Plan of Treatment Not on file Care Teams Wooden Shade Hardware Installer Relationship Specialty Start Date End Date No Ref-Primary, Physician PCP - General 09/29/18
--- NOTE | 2023-12-07 12:00 | XR_ITS ---
Patient: JENNIFER AYALA Facility:?[facility] Patient ID:?[id number] Site Patient ID:?[id number]. Site :?[id number] Study:?DEXA-Bone Density -12/07/2023 12:33:24 PM Ordering Physician:MAIKOL Final Report: DXA BONE MINERAL DENSITY STUDY Reason for exam: Breast cancer. Current height (in): 66. Weight (lb): 245. Menopause age: 43. Ethnicity: White. 1. Have you had a previous hip or vertebral fracture? No. 2. Have you had any fractures during your adult life which did not result from significant trauma (e.g., auto accident)? Yes. 3. Did either of your parents have a hip fracture? No. 4. Do you smoke? No. 5. Have you ever taken Glucocorticoids? No. 6. Do you have rheumatoid arthritis? No. 7. Do you have secondary osteoporosis? No. 8. Do you drink 3 or more alcoholic drinks per day? No. 9. Are you being treated for osteoporosis? No. 10. Have you ever taken any of the following medications: Actonel, Evista, Fosamax, Miacalcin, Reclast, Boniva, Forteo, HRT (i.e. estrogen/hormone therapy), Protelos, Prolia, Vitamin D, Calcium, other ? please specify. ANSWER: No. 11. Do you have any of the following medical conditions: Anorexia or bulimia, asthma or emphysema, end stage renal disease, hyperparathyroidism, any seizure disorders, cancer, inflammatory bowel diseases, hysterectomy, other ? please specify. ANSWER: Yes, cancer and hysterectomy. 12. What was your maximum height (inches)? 66. 13. Do you perform weight bearing exercise regularly? No. 14. Do you regularly consume dairy products? No. 15. Do you drink caffeinated beverages? No. 16. At what age did your period start? 10. 17. Are you premenopausal? No. 18. How many full term pregnancies have you had? 3. 19. Have you ever missed your period for more than 6 months in a row (not including or menopause)? No. TECHNIQUE: Bone mineral density study was performed using the Triplify. FINDINGS: The results of the study expressed as bone mineral density (BMD) are as follows: Lumbar spine L1 to L3: BMD: 1.059 g/cm2. T-score: 0.4. Z-score: 1.4. Neck Left: BMD: 0.770 g/cm2. T-score: -0.7. Z-score: 0.3. Right: BMD: 0.776 g/cm2. T-score: -0.7. Z-score: 0.4. Total Left: BMD: 0.909 g/cm2. T-score: -0.3. Z-score: 0.4. Right: BMD: 0.867 g/cm2. T-score: -0.6. Z-score: 0.0. IMPRESSION: Normal bone density. *Comparison exams done prior to 01/2020 were performed on different unit, Tintri. Sarwat Dahl M.D. Diagnostic Radiologist [email or web address] [place]ALESKA/sp D& Transcribed: 7:01 p.m. SP/Dictated by: Sarwat Dahl MD @ 12/07/2023 1:06:00 PM Signed by:?Sarwat Dahl MD @12/08/2023 5:37:59 AM (Electronic Signature)
== END 2023-12-07 11:52 | disposition home or self-care (01) ==
LOC: RAD 11:51
PROVIDERS: PCP Nurse Practitioner Family; Visit Provider Physician Assistant
DX: C50.919 Malignant neoplasm of unspecified site of unspecified female breast (principal); Z79.811 Long term (current) use of aromatase inhibitors
CPT/HCPCS: 77080

== ENCOUNTER 2024-02-07 14:30 | Outpatient (RCR) | payer BC, SELFPAY ==
[2023-08-25 16:12] LABS: Basophils Absolute Auto 0.04 K/uL (0.00-0.30); Basophils Percent Auto 0.6 % (0.0-3.0); Eosinophils Absolute Auto 0.22 K/uL (0.00-0.50); Eosinophils Percent Auto 3.5 % (0.0-7.0); Hematocrit 38.3 % (33.0-51.0); Hemoglobin* 12.3 gm/dL (12.0-16.0); Immature Granulocytes Abs Auto 0.01 K/uL (0.00-0.30); Immature Granulocytes Pct Auto 0.2 %; Lymphocytes Absolute Auto 1.96 K/uL (0.90-2.90); Mean Corpuscular HGB Conc 32 gm/dL (32-36); Mean Corpuscular Hemoglobin 31 pg (26-34); Mean Corpuscular Volume 98 fL (80-100); Monocytes Percent Auto 8.4 % (0.0-11.0); Neutrophils Absolute Auto 3.57 K/uL (1.7-7.0); Neutrophils Percent Auto 56.3 % (42.0-72.0); Platelet Count* 284 K/uL (140-440); RDW Coefficient of Variation % 12.5 % (11.5-15.5); Red Blood Count 3.93 m/uL (4.00-5.20); White Blood Count* 6.33 K/uL (4.50-11.00)
[2023-08-25 16:15] LABS: Slide Review Reflex No
[2023-08-25 16:18] LABS: Albumin* 4.1 g/dL (3.3-5.0); Chloride* 106 mmol/L (96-114); Potassium* 3.9 mmol/L (3.6-5.1); Sodium* 141 mmol/L (135-149)
[2023-08-25 16:20] LABS: Creatinine* 0.6 mg/dL (0.5-1.5); Est. Creatinine Clearance* 96.45; Estimated Glomerular Filt Rate 107 ml/min
[2023-08-25 16:21] LABS: Alanine Aminotransferase* 16 U/L (4-35); Alkaline Phosphatase* 83 U/L (40-150); Anion Gap 8 mEq/L (7-15); Aspartate Amino Transferase* 23 U/L (12-35); Bilirubin Total* 0.4 mg/dL (0.1-1.5); Blood Urea Nitrogen* 17 mg/dL (7-30); Calcium* 8.9 mg/dL (8.4-10.6); Carbon Dioxide* 27 mmol/L (20-32); Glucose* 97 mg/dL (60-115); Total Protein* 7.1 g/dL (6.0-8.3)
--- NOTE | 2023-08-31 07:51 | ONC.NURNOTE ---
Pt left message this am stating she woke up with a bad cold wondering if she should still come in to [facility] at 0830. [employer] called back and reviewed pt symptoms, pt states she was tired yesterday and woke up this morning with congestion, runny nose, and a headache. Pt denies fever, sore throat, chills. Instructed pt to take a covid test at home and call [facility] with those results. [employer] will update breast care navigators and Brenda Velásquez APRN.
--- NOTE | 2023-09-01 12:37 | URNOTE ---
Request received for authorization for Paclitaxel ([id number]) and Tastuzumab-dkst ([id number]). Pt carries Federal plan approved: Paclitaxel Auth #[id number], date range 09/01/2023 to 09/01/2024 12 visits. Tastuzumab-dkst (Ogivri) Auth#[id number] date range:08/25/2023 to 08/25/2024, as prescribed by provider (confirmed with Rep. April Heller ref call #[id number]).
[2023-09-07 14:36] LABS: Basophils Absolute Auto 0.05 K/uL (0.00-0.30); Basophils Percent Auto 0.7 % (0.0-3.0); Eosinophils Absolute Auto 0.26 K/uL (0.00-0.50); Eosinophils Percent Auto 3.6 % (0.0-7.0); Hematocrit 41.8 % (33.0-51.0); Hemoglobin* 13.7 gm/dL (12.0-16.0); Immature Granulocytes Abs Auto 0.03 K/uL (0.00-0.30); Immature Granulocytes Pct Auto 0.4 %; Lymphocytes Absolute Auto 2.36 K/uL (0.90-2.90); Mean Corpuscular HGB Conc 33 gm/dL (32-36); Mean Corpuscular Hemoglobin 31 pg (26-34); Mean Corpuscular Volume 94 fL (80-100); Monocytes Percent Auto 8.4 % (0.0-11.0); Neutrophils Absolute Auto 3.85 K/uL (1.7-7.0); Neutrophils Percent Auto 53.9 % (42.0-72.0); Platelet Count* 405 K/uL (140-440); RDW Coefficient of Variation % 12.3 % (11.5-15.5); Red Blood Count 4.44 m/uL (4.00-5.20); White Blood Count* 7.15 K/uL (4.50-11.00)
[2023-09-07 14:38] LABS: Slide Review Reflex No
[2023-09-07 14:41] LABS: Chloride* 106 mmol/L (96-114)
[2023-09-07 14:42] LABS: Albumin* 4.5 g/dL (3.3-5.0); Potassium* 3.9 mmol/L (3.6-5.1); Sodium* 140 mmol/L (135-149)
[2023-09-07 14:45] LABS: Alanine Aminotransferase* 25 U/L (4-35); Alkaline Phosphatase* 103 U/L (40-150); Anion Gap 10 mEq/L (7-15); Aspartate Amino Transferase* 28 U/L (12-35); Bilirubin Total* 0.3 mg/dL (0.1-1.5); Blood Urea Nitrogen* 20 mg/dL (7-30); Carbon Dioxide* 24 mmol/L (20-32); Creatinine* 0.5 mg/dL (0.5-1.5); Est. Creatinine Clearance* 115.74; Estimated Glomerular Filt Rate 111 ml/min; Glucose* 127 mg/dL (60-115); Total Protein* 7.7 g/dL (6.0-8.3)
[2023-09-07 14:46] LABS: Calcium* 9.1 mg/dL (8.4-10.6)
[2023-09-11] VITALS (13 sets, daily range): BP systolic 106–156; BP diastolic 69–91; PULSE 62–76; RESP 16–24; TEMP 35.6–37.6; O2SAT 92–98
[2023-09-11] MEDS: SODIUM CHLORIDE 0.9 % (FLUSH) 10 ML SYRINGE IVF (11:05)
[2023-09-11] MEDS: 0.9 % SODIUM CHLORIDE 250 ml IV (11:14)
[2023-09-11] MEDS: dexAMETHasone 10 MG in 0.9 % SODIUM CHLORIDE 100 ml 100 ML 404 MG IVPB (11:54)
[2023-09-11] MEDS: ONDANSETRON 2 MG/ML inj 8 MG IVP (11:54)
[2023-09-11] MEDS: FAMOTIDINE 20 MG, diphenhydrAMINE 50 MG in 0.9 % SODIUM CHLORIDE 100 ml 100 ML 420 MG IVPB (12:18)
[2023-09-11] MEDS: 0.9 % SODIUM CHLORIDE 1000 ml 1,000 ML IV (12:58)
[2023-09-11] MEDS: METHYLPREDNISOLONE SOD SUCC 40 MG/ML 100 MG IVP (13:09)
--- NOTE | 2023-09-11 14:02 | ONC.NURNOTE ---
Addendum entered by Cece Gross RN 09/11/23 16:29: Pt tolerated rest of Taxol infusion with increasing to 210 ml/hr x 15 min with max rate of 280 ml/hr for duration. Reviewed s/s delayed reaction. She notes she does not have any Benadryl at home; requested pt pick some up on way home. Reviewed to call 911 if symptoms reappear; pt verbalizes understanding. Monitored for 30 min post Taxol infusion; pt feeling well. DC'd ambulatory to home with , Jaswant. Original Note: Infusion Reaction: 1st Taxol 13 min into Taxol infusion at 1254, pt c/o sudden flushing, feeling hot, nauseous. Taxol stopped.Pt had difficulty speaking d/t swollen tongue, noted chest tightness and chest itching and was clammy. Brenda Michael APRN in to assess pt. NS IV started wide open; VS monitored. Cool washcloth to forehead; ice pack to neck. Symptoms improved steadily over next 15 min, except pt notes fireflies in her left outer upper field of vision. This continued from [id number]. Pt up to the bathroom at 1350. Feeling steady. Taxol restarted at 1400 at 70ml/hr x 15 min. VSS, asymptomatic. Increased to 140 ml/hr at 1415.
--- NOTE | 2023-09-12 14:02 | ONC.NURNOTE ---
Called pt day after 1st chemo. She is feeling well; denies nausea. She took Compazine on departure yesterday ~1600 and again this morning and is not having any nausea. She notes her face feeling warm for a little bit this morning but it resolved on its own. Denies rash, breathing changes, s/s reaction from yesterday. She will call with concerns.
[2023-09-20 08:53] LABS: Basophils Absolute Auto 0.03 K/uL (0.00-0.30); Basophils Percent Auto 0.6 % (0.0-3.0); Eosinophils Absolute Auto 0.22 K/uL (0.00-0.50); Eosinophils Percent Auto 4.5 % (0.0-7.0); Hematocrit 36.7 % (33.0-51.0); Hemoglobin* 12.1 gm/dL (12.0-16.0); Immature Granulocytes Abs Auto 0.02 K/uL (0.00-0.30); Immature Granulocytes Pct Auto 0.4 %; Lymphocytes Percent Auto 32.6 % (20-44); Mean Corpuscular HGB Conc 33 gm/dL (32-36); Mean Corpuscular Hemoglobin 32 pg (26-34); Mean Corpuscular Volume 96 fL (80-100); Monocytes Percent Auto 8.1 % (0.0-11.0); Neutrophils Absolute Auto 2.64 K/uL (1.7-7.0); Neutrophils Percent Auto 53.8 % (42.0-72.0); Platelet Count* 347 K/uL (140-440); RDW Coefficient of Variation % 12.8 % (11.5-15.5); Red Blood Count 3.82 m/uL (4.00-5.20); White Blood Count* 4.91 K/uL (4.50-11.00)
[2023-09-20 09:01] LABS: Slide Review Reflex No
[2023-09-20 09:07] LABS: Albumin* 4.1 g/dL (3.3-5.0); Chloride* 108 mmol/L (96-114); Potassium* 3.9 mmol/L (3.6-5.1); Sodium* 140 mmol/L (135-149)
[2023-09-20 09:09] LABS: Creatinine* 0.6 mg/dL (0.5-1.5); Est. Creatinine Clearance* 96.45; Estimated Glomerular Filt Rate 107 ml/min
[2023-09-20 09:10] LABS: Alanine Aminotransferase* 26 U/L (4-35); Alkaline Phosphatase* 77 U/L (40-150); Anion Gap 7 mEq/L (7-15); Aspartate Amino Transferase* 27 U/L (12-35); Bilirubin Total* 0.4 mg/dL (0.1-1.5); Blood Urea Nitrogen* 20 mg/dL (7-30); Calcium* 8.9 mg/dL (8.4-10.6); Carbon Dioxide* 25 mmol/L (20-32); Glucose* 118 mg/dL (60-115); Total Protein* 7.1 g/dL (6.0-8.3)
[2023-09-20 09:43] VITALS: BP 124/80; PULSE 72; RESP 16; TEMP 36.3; O2SAT 95
[2023-09-20] MEDS: dexAMETHasone 20 MG in 0.9 % SODIUM CHLORIDE 100 ml 100 ML 400 MG IVPB (10:00)
[2023-09-20] MEDS: ONDANSETRON 2 MG/ML inj 8 MG IVP (10:01)
[2023-09-20] MEDS: FAMOTIDINE 20 MG, diphenhydrAMINE 50 MG in 0.9 % SODIUM CHLORIDE 100 ml 100 ML 309 MG IVPB (10:24)
[2023-09-20] MEDS: SODIUM CHLORIDE 0.9 % (FLUSH) 10 ML SYRINGE IVF (12:38)
[2023-09-20] MEDS: HEPARIN 500 UNIT/5 ML SYRINGE IVF (12:38)
[2023-09-20] MEDS: 0.9 % SODIUM CHLORIDE 250 ml IV (12:39)
--- NOTE | 2023-09-21 10:08 | ONC.NURNOTE ---
Pt here for Taxol on 09/20/23. Pt tolerated Taxol infusion well with titrating Taxol rates- see instructions from Brenda Velásquez APRN note. Discussed with Brenda Velásquez APRN pt tolerance to Taxol and will proceed with same titration on 09/29/23.
[2023-09-29 09:05] LABS: Basophils Absolute Auto 0.04 K/uL (0.00-0.30); Basophils Percent Auto 0.7 % (0.0-3.0); Eosinophils Absolute Auto 0.26 K/uL (0.00-0.50); Eosinophils Percent Auto 4.2 % (0.0-7.0); Hematocrit 37.7 % (33.0-51.0); Hemoglobin* 12.2 gm/dL (12.0-16.0); Immature Granulocytes Pct Auto 1.6 %; Lymphocytes Absolute Auto 1.86 K/uL (0.90-2.90); Lymphocytes Percent Auto 30.4 % (20-44); Mean Corpuscular HGB Conc 32 gm/dL (32-36); Mean Corpuscular Hemoglobin 31 pg (26-34); Mean Corpuscular Volume 95 fL (80-100); Neutrophils Absolute Auto 3.31 K/uL (1.7-7.0); Neutrophils Percent Auto 54.1 % (42.0-72.0); Platelet Count* 368 K/uL (140-440); RDW Coefficient of Variation % 13.6 % (11.5-15.5); Red Blood Count 3.96 m/uL (4.00-5.20); White Blood Count* 6.12 K/uL (4.50-11.00)
[2023-09-29 09:10] LABS: Slide Review Reflex No
[2023-09-29 09:28] LABS: Albumin* 4.1 g/dL (3.3-5.0); Chloride* 109 mmol/L (96-114); Potassium* 3.9 mmol/L (3.6-5.1); Sodium* 142 mmol/L (135-149)
[2023-09-29 09:30] LABS: Bilirubin Total* 0.3 mg/dL (0.1-1.5); Creatinine* 0.5 mg/dL (0.5-1.5); Est. Creatinine Clearance* 115.74; Estimated Glomerular Filt Rate 111 ml/min
[2023-09-29 09:31] LABS: Alanine Aminotransferase* 34 U/L (4-35); Alkaline Phosphatase* 88 U/L (40-150); Anion Gap 9 mEq/L (7-15); Aspartate Amino Transferase* 31 U/L (12-35); Blood Urea Nitrogen* 19 mg/dL (7-30); Carbon Dioxide* 24 mmol/L (20-32); Glucose* 114 mg/dL (60-115); Total Protein* 7.1 g/dL (6.0-8.3)
[2023-09-29] MEDS: ONDANSETRON 2 MG/ML inj 8 MG IVP (09:58)
[2023-09-29] MEDS: dexAMETHasone 20 MG in 0.9 % SODIUM CHLORIDE 100 ml 100 ML 408 MG IVPB (09:58)
[2023-09-29] MEDS: FAMOTIDINE 20 MG, diphenhydrAMINE 50 MG in 0.9 % SODIUM CHLORIDE 100 ml 100 ML 410 MG IVPB (10:21)
[2023-09-29] MEDS: 0.9 % SODIUM CHLORIDE 250 ml IV (11:15)
[2023-09-29] MEDS: SODIUM CHLORIDE 0.9 % (FLUSH) 10 ML SYRINGE IVF (12:32)
[2023-09-29] MEDS: HEPARIN 500 UNIT/5 ML SYRINGE IVF (12:32)
[2023-09-29 12:53] VITALS: BP 130/72; PULSE 71; RESP 18; TEMP 36.4; O2SAT 96
[2023-10-04] MEDS: HEPARIN 500 UNIT/5 ML SYRINGE IVF (14:28)
[2023-10-04] MEDS: SODIUM CHLORIDE 0.9 % (FLUSH) 10 ML SYRINGE IVF (14:28)
[2023-10-04 15:11] LABS: Anion Gap 8 mEq/L (7-15)
[2023-10-04 15:12] LABS: Est. Creatinine Clearance* 115.74; Estimated Glomerular Filt Rate 111 ml/min
[2023-10-04 15:29] LABS: Alanine Aminotransferase* 32 U/L (4-35); Albumin* 4.2 g/dL (3.3-5.0); Alkaline Phosphatase* 87 U/L (40-150); Aspartate Amino Transferase* 29 U/L (12-35); Bilirubin Total* 0.4 mg/dL (0.1-1.5); Blood Urea Nitrogen* 21 mg/dL (7-30); Calcium* 8.8 mg/dL (8.4-10.6); Carbon Dioxide* 24 mmol/L (20-32); Chloride* 107 mmol/L (96-114); Creatinine* 0.5 mg/dL (0.5-1.5); Glucose* 113 mg/dL (60-115); Potassium* 3.6 mmol/L (3.6-5.1); Sodium* 139 mmol/L (135-149)
[2023-10-04 15:54] LABS: Basophils Absolute Auto 0.05 K/uL (0.00-0.30); Basophils Percent Auto 0.6 % (0.0-3.0); Eosinophils Absolute Auto 0.14 K/uL (0.00-0.50); Eosinophils Percent Auto 1.8 % (0.0-7.0); Hematocrit 34.6 % (33.0-51.0); Hemoglobin* 11.6 gm/dL (12.0-16.0); Immature Granulocytes Abs Auto 0.02 K/uL (0.00-0.30); Immature Granulocytes Pct Auto 0.3 %; Lymphocytes Percent Auto 21.1 % (20-44); Mean Corpuscular HGB Conc 34 gm/dL (32-36); Mean Corpuscular Hemoglobin 32 pg (26-34); Mean Corpuscular Volume 94 fL (80-100); Monocytes Absolute Auto 0.34 K/UL (0.00-0.90); Monocytes Percent Auto 4.3 % (0.0-11.0); Neutrophils Absolute Auto 5.63 K/uL (1.7-7.0); Neutrophils Percent Auto 71.9 % (42.0-72.0); Platelet Count* 412 K/uL (140-440); RDW Coefficient of Variation % 13.5 % (11.5-15.5); Red Blood Count 3.67 m/uL (4.00-5.20); White Blood Count* 7.83 K/uL (4.50-11.00)
[2023-10-04 15:59] LABS: Slide Review Reflex No
[2023-10-06 08:39] VITALS: BP 133/82; PULSE 70; RESP 16; TEMP 36.3; O2SAT 96
[2023-10-06] MEDS: FAMOTIDINE 20 MG, diphenhydrAMINE 50 MG in 0.9 % SODIUM CHLORIDE 100 ml 100 ML 309 MG IVPB (09:24)
[2023-10-06] MEDS: SODIUM CHLORIDE 0.9 % (FLUSH) 10 ML SYRINGE IVF (09:25)
[2023-10-06] MEDS: 0.9 % SODIUM CHLORIDE 250 ml IV (09:25)
[2023-10-06] MEDS: ONDANSETRON 2 MG/ML inj 8 MG IVP (09:25)
[2023-10-06] MEDS: HEPARIN 500 UNIT/5 ML SYRINGE IVF (09:25)
[2023-10-06] MEDS: dexAMETHasone 20 MG in 0.9 % SODIUM CHLORIDE 100 ml 100 ML 408 MG IVPB (09:49)
[2023-10-13 08:58] LABS: Basophils Absolute Auto 0.05 K/uL (0.00-0.30); Eosinophils Absolute Auto 0.15 K/uL (0.00-0.50); Eosinophils Percent Auto 2.9 % (0.0-7.0); Hematocrit 37.5 % (33.0-51.0); Hemoglobin* 12.2 gm/dL (12.0-16.0); Immature Granulocytes Abs Auto 0.02 K/uL (0.00-0.30); Immature Granulocytes Pct Auto 0.4 %; Lymphocytes Absolute Auto 1.23 K/uL (0.90-2.90); Lymphocytes Percent Auto 23.8 % (20-44); Mean Corpuscular HGB Conc 33 gm/dL (32-36); Mean Corpuscular Hemoglobin 31 pg (26-34); Mean Corpuscular Volume 96 fL (80-100); Monocytes Percent Auto 8.7 % (0.0-11.0); Neutrophils Absolute Auto 3.27 K/uL (1.7-7.0); Neutrophils Percent Auto 63.2 % (42.0-72.0); Platelet Count* 393 K/uL (140-440); RDW Coefficient of Variation % 14.4 % (11.5-15.5); Red Blood Count 3.91 m/uL (4.00-5.20); White Blood Count* 5.17 K/uL (4.50-11.00)
[2023-10-13 08:59] LABS: Slide Review Reflex No
[2023-10-13 09:16] LABS: Albumin* 4.2 g/dL (3.3-5.0); Chloride* 105 mmol/L (96-114)
[2023-10-13 09:17] LABS: Potassium* 3.9 mmol/L (3.6-5.1); Sodium* 139 mmol/L (135-149)
[2023-10-13 09:19] LABS: Alkaline Phosphatase* 95 U/L (40-150); Anion Gap 8 mEq/L (7-15); Aspartate Amino Transferase* 30 U/L (12-35); Bilirubin Total* 0.6 mg/dL (0.1-1.5); Blood Urea Nitrogen* 20 mg/dL (7-30); Carbon Dioxide* 26 mmol/L (20-32); Creatinine* 0.5 mg/dL (0.5-1.5); Est. Creatinine Clearance* 115.74; Estimated Glomerular Filt Rate 111 ml/min; Total Protein* 7.2 g/dL (6.0-8.3)
[2023-10-13 09:20] LABS: Alanine Aminotransferase* 35 U/L (4-35); Calcium* 9.3 mg/dL (8.4-10.6); Glucose* 104 mg/dL (60-115)
[2023-10-13 09:31] VITALS: BP 122/80; PULSE 68; RESP 16; TEMP 37.1; O2SAT 96
[2023-10-13] MEDS: ONDANSETRON 2 MG/ML inj 8 MG IVP (10:00)
[2023-10-13] MEDS: 0.9 % SODIUM CHLORIDE 250 ml IV (10:01)
[2023-10-13] MEDS: SODIUM CHLORIDE 0.9 % (FLUSH) 10 ML SYRINGE IVF (10:01)
[2023-10-13] MEDS: FAMOTIDINE 20 MG, diphenhydrAMINE 50 MG in 0.9 % SODIUM CHLORIDE 100 ml 100 ML 309 MG IVPB (10:01)
[2023-10-13] MEDS: dexAMETHasone 20 MG in 0.9 % SODIUM CHLORIDE 100 ml 100 ML 400 MG IVPB (10:32)
--- NOTE | 2023-10-13 12:44 | ONC.NURNOTE ---
Addendum entered by Yasmin Coon RN 10/13/23 15:49: Called and spoke with patient and she stated she is fine without any chest heaviness now Original Note: Noticed Taxol was not titrated as original plan just run over standard plan of 1 hour. Patient slept through infusion and had no complaints but when called did state she felt a little chest heaviness but nothing else. Refused to come in stating she felt fine and would call if continues. Instructed to take a Benadryl to help with chest pressure
[2023-10-20 08:45] VITALS: BP 136/74; PULSE 72; RESP 16; TEMP 35.9; O2SAT 97
[2023-10-20 09:04] LABS: Basophils Absolute Auto 0.04 K/uL (0.00-0.30); Basophils Percent Auto 0.8 % (0.0-3.0); Eosinophils Absolute Auto 0.18 K/uL (0.00-0.50); Eosinophils Percent Auto 3.4 % (0.0-7.0); Hematocrit 37.4 % (33.0-51.0); Hemoglobin* 12.2 gm/dL (12.0-16.0); Immature Granulocytes Abs Auto 0.04 K/uL (0.00-0.30); Immature Granulocytes Pct Auto 0.8 %; Lymphocytes Absolute Auto 1.42 K/uL (0.90-2.90); Lymphocytes Percent Auto 26.6 % (20-44); Mean Corpuscular HGB Conc 33 gm/dL (32-36); Mean Corpuscular Hemoglobin 31 pg (26-34); Mean Corpuscular Volume 96 fL (80-100); Monocytes Percent Auto 10.1 % (0.0-11.0); Neutrophils Absolute Auto 3.11 K/uL (1.7-7.0); Neutrophils Percent Auto 58.3 % (42.0-72.0); Platelet Count* 358 K/uL (140-440); RDW Coefficient of Variation % 14.5 % (11.5-15.5); Red Blood Count 3.88 m/uL (4.00-5.20); White Blood Count* 5.33 K/uL (4.50-11.00)
[2023-10-20 09:20] LABS: Albumin* 4.1 g/dL (3.3-5.0); Chloride* 106 mmol/L (96-114)
[2023-10-20 09:21] LABS: Potassium* 3.7 mmol/L (3.6-5.1); Sodium* 141 mmol/L (135-149)
[2023-10-20 09:23] LABS: Alkaline Phosphatase* 80 U/L (40-150); Anion Gap 12 mEq/L (7-15); Aspartate Amino Transferase* 23 U/L (12-35); Bilirubin Total* 0.3 mg/dL (0.1-1.5); Blood Urea Nitrogen* 21 mg/dL (7-30); Carbon Dioxide* 23 mmol/L (20-32); Creatinine* 0.5 mg/dL (0.5-1.5); Est. Creatinine Clearance* 120.41; Estimated Glomerular Filt Rate 111 ml/min; Total Protein* 7.1 g/dL (6.0-8.3)
[2023-10-20 09:24] LABS: Alanine Aminotransferase* 25 U/L (4-35); Calcium* 9.2 mg/dL (8.4-10.6); Glucose* 120 mg/dL (60-115)
[2023-10-20 09:26] LABS: Slide Review Reflex No
[2023-10-20] MEDS: 0.9 % SODIUM CHLORIDE 250 ml IV (09:56)
[2023-10-20] MEDS: dexAMETHasone 20 MG in 0.9 % SODIUM CHLORIDE 100 ml 100 ML 420 MG IVPB (09:56)
[2023-10-20] MEDS: SODIUM CHLORIDE 0.9 % (FLUSH) 10 ML SYRINGE IVF ×2 (09:56→12:36)
[2023-10-20] MEDS: ONDANSETRON 2 MG/ML inj 8 MG IVP (09:57)
[2023-10-20] MEDS: FAMOTIDINE 20 MG, diphenhydrAMINE 50 MG in 0.9 % SODIUM CHLORIDE 100 ml 100 ML 420 MG IVPB (10:14)
[2023-10-20] MEDS: HEPARIN 500 UNIT/5 ML SYRINGE IVF (12:36)
[2023-10-27 08:32] VITALS: BP 121/80; PULSE 75; RESP 16; TEMP 36.4; O2SAT 75
[2023-10-27 08:50] LABS: Basophils Absolute Auto 0.05 K/uL (0.00-0.30); Basophils Percent Auto 0.9 % (0.0-3.0); Eosinophils Absolute Auto 0.09 K/uL (0.00-0.50); Eosinophils Percent Auto 1.6 % (0.0-7.0); Hematocrit 36.2 % (33.0-51.0); Hemoglobin* 12.1 gm/dL (12.0-16.0); Immature Granulocytes Abs Auto 0.05 K/uL (0.00-0.30); Immature Granulocytes Pct Auto 0.9 %; Lymphocytes Absolute Auto 1.56 K/uL (0.90-2.90); Lymphocytes Percent Auto 27.9 % (20-44); Mean Corpuscular HGB Conc 33 gm/dL (32-36); Mean Corpuscular Hemoglobin 32 pg (26-34); Mean Corpuscular Volume 95 fL (80-100); Monocytes Percent Auto 10.6 % (0.0-11.0); Neutrophils Absolute Auto 3.25 K/uL (1.7-7.0); Neutrophils Percent Auto 58.1 % (42.0-72.0); Platelet Count* 346 K/uL (140-440); RDW Coefficient of Variation % 14.4 % (11.5-15.5); Red Blood Count 3.81 m/uL (4.00-5.20); White Blood Count* 5.59 K/uL (4.50-11.00)
[2023-10-27 08:59] LABS: Slide Review Reflex No
[2023-10-27 09:03] LABS: Chloride* 107 mmol/L (96-114)
[2023-10-27 09:04] LABS: Albumin* 3.9 g/dL (3.3-5.0); Potassium* 3.4 mmol/L (3.6-5.1); Sodium* 141 mmol/L (135-149)
[2023-10-27 09:06] LABS: Anion Gap 5 mEq/L (7-15); Carbon Dioxide* 29 mmol/L (20-32); Creatinine* 0.5 mg/dL (0.5-1.5); Est. Creatinine Clearance* 120.41; Estimated Glomerular Filt Rate 111 ml/min
[2023-10-27 09:07] LABS: Alanine Aminotransferase* 33 U/L (4-35); Alkaline Phosphatase* 82 U/L (40-150); Aspartate Amino Transferase* 30 U/L (12-35); Bilirubin Total* 0.3 mg/dL (0.1-1.5); Blood Urea Nitrogen* 23 mg/dL (7-30); Calcium* 9.2 mg/dL (8.4-10.6); Glucose* 103 mg/dL (60-115); Total Protein* 6.7 g/dL (6.0-8.3)
[2023-10-27] MEDS: dexAMETHasone 20 MG in 0.9 % SODIUM CHLORIDE 100 ml 100 ML 408 MG IVPB (09:57)
[2023-10-27] MEDS: ONDANSETRON 2 MG/ML inj 8 MG IVP (09:58)
[2023-10-27] MEDS: FAMOTIDINE 20 MG, diphenhydrAMINE 50 MG in 0.9 % SODIUM CHLORIDE 100 ml 100 ML 309 MG IVPB (10:17)
[2023-10-27] MEDS: 0.9 % SODIUM CHLORIDE 250 ml IV (11:05)
[2023-10-27] MEDS: SODIUM CHLORIDE 0.9 % (FLUSH) 10 ML SYRINGE IVF (13:11)
[2023-10-27] MEDS: HEPARIN 500 UNIT/5 ML SYRINGE IVF (13:11)
[2023-11-03 08:33] VITALS: BP 138/84; PULSE 89; RESP 17; TEMP 36.3; O2SAT 99
[2023-11-03 08:53] LABS: Basophils Absolute Auto 0.06 K/uL (0.00-0.30); Basophils Percent Auto 1.2 % (0.0-3.0); Eosinophils Absolute Auto 0.09 K/uL (0.00-0.50); Eosinophils Percent Auto 1.8 % (0.0-7.0); Hematocrit 38.4 % (33.0-51.0); Hemoglobin* 12.8 gm/dL (12.0-16.0); Immature Granulocytes Abs Auto 0.03 K/uL (0.00-0.30); Immature Granulocytes Pct Auto 0.6 %; Mean Corpuscular HGB Conc 33 gm/dL (32-36); Mean Corpuscular Hemoglobin 32 pg (26-34); Mean Corpuscular Volume 95 fL (80-100); Monocytes Percent Auto 11.2 % (0.0-11.0); Neutrophils Absolute Auto 3.45 K/uL (1.7-7.0); Neutrophils Percent Auto 70.2 % (42.0-72.0); Platelet Count* 363 K/uL (140-440); RDW Coefficient of Variation % 14.9 % (11.5-15.5); Red Blood Count 4.05 m/uL (4.00-5.20); White Blood Count* 4.92 K/uL (4.50-11.00)
[2023-11-03 09:01] LABS: Albumin* 4.4 g/dL (3.3-5.0); Chloride* 109 mmol/L (96-114)
[2023-11-03 09:02] LABS: Potassium* 4.3 mmol/L (3.6-5.1); Sodium* 139 mmol/L (135-149)
[2023-11-03 09:04] LABS: Alkaline Phosphatase* 76 U/L (40-150); Anion Gap 7 mEq/L (7-15); Aspartate Amino Transferase* 28 U/L (12-35); Bilirubin Total* 0.6 mg/dL (0.1-1.5); Blood Urea Nitrogen* 21 mg/dL (7-30); Carbon Dioxide* 23 mmol/L (20-32); Creatinine* 0.7 mg/dL (0.5-1.5); Est. Creatinine Clearance* 86.01; Estimated Glomerular Filt Rate 103 ml/min; Total Protein* 7.4 g/dL (6.0-8.3)
[2023-11-03 09:05] LABS: Alanine Aminotransferase* 38 U/L (4-35); Calcium* 9.6 mg/dL (8.4-10.6); Glucose* 97 mg/dL (60-115)
[2023-11-03 09:09] LABS: Slide Review Reflex No
[2023-11-03] MEDS: ONDANSETRON 2 MG/ML inj 8 MG IVP (10:24)
[2023-11-03] MEDS: dexAMETHasone 20 MG in 0.9 % SODIUM CHLORIDE 100 ml 100 ML 400 MG IVPB (10:25)
[2023-11-03] MEDS: FAMOTIDINE 20 MG, diphenhydrAMINE 50 MG in 0.9 % SODIUM CHLORIDE 100 ml 100 ML 309 MG IVPB (10:45)
[2023-11-03] MEDS: SODIUM CHLORIDE 0.9 % (FLUSH) 10 ML SYRINGE IVF (13:00)
[2023-11-03] MEDS: HEPARIN 500 UNIT/5 ML SYRINGE IVF (13:00)
--- NOTE | 2023-11-03 14:24 | ONC.NURNOTE ---
Addendum entered by Cece Gross RN 11/06/23 09:14: Per Sola in pharmacy, no interaction between Ogivri and Phentermine. Original Note: Pt here for Taxol. VSS. Weight down 4 pounds in one week. Pt stated her plastic surgeon recommended pt lose weight for surgery and see an architectural representative. Monet Gr PA-C in endocrinology started pt on Qsymia (phentermin/topiramate). Discussed with Brenda Velásquez APRN, also called pharmacist for med check to make sure there is no interaction with Taxol. Per Lb in pharmacy, no interaction noted. Pt also stated she has fluid in her right ear causing some difficulty hearing, pt states she gets ear infections about twice a year. Pt does not have pain in that ear at this time, explained to pt she should her primary care provider on Monday if symptoms do not improve.
[2023-11-10 08:59] LABS: Basophils Percent Auto 1.2 % (0.0-3.0); Eosinophils Percent Auto 3.6 % (0.0-7.0); Hematocrit 38.2 % (33.0-51.0); Hemoglobin* 12.9 gm/dL (12.0-16.0); Immature Granulocytes Pct Auto 0.3 %; Lymphocytes Percent Auto 41.7 % (20-44); Mean Corpuscular HGB Conc 34 gm/dL (32-36); Mean Corpuscular Hemoglobin 32 pg (26-34); Mean Corpuscular Volume 93 fL (80-100); Neutrophils Percent Auto 43.2 % (42.0-72.0); Platelet Count* 333 K/uL (140-440); RDW Coefficient of Variation % 14.7 % (11.5-15.5); Red Blood Count 4.09 m/uL (4.00-5.20); White Blood Count* 3.31 K/uL (4.50-11.00)
[2023-11-10 09:01] LABS: Slide Review Reflex No
[2023-11-10 09:18] LABS: Albumin* 4.2 g/dL (3.3-5.0); Chloride* 108 mmol/L (96-114); Potassium* 3.5 mmol/L (3.6-5.1); Sodium* 140 mmol/L (135-149)
[2023-11-10 09:21] LABS: Alanine Aminotransferase* 27 U/L (4-35); Alkaline Phosphatase* 61 U/L (40-150); Anion Gap 8 mEq/L (7-15); Aspartate Amino Transferase* 26 U/L (12-35); Bilirubin Total* 0.4 mg/dL (0.1-1.5); Blood Urea Nitrogen* 23 mg/dL (7-30); Carbon Dioxide* 24 mmol/L (20-32); Creatinine* 0.6 mg/dL (0.5-1.5); Est. Creatinine Clearance* 100.34; Estimated Glomerular Filt Rate 107 ml/min; Glucose* 117 mg/dL (60-115); Total Protein* 7.3 g/dL (6.0-8.3)
[2023-11-10 09:22] LABS: Calcium* 9.4 mg/dL (8.4-10.6)
--- NOTE | 2023-11-10 11:09 | ONC.NURNOTE ---
Pt here today for W9 Taxol/due for Ogivri q 21 days next week. Pt reports she was sick this week; was home from work except yesterday (). Timeline as follows: 11/02 noticed right ear fullness Sat 11/03 began to have right sinus congestion; home Covid test negative Sun 11/04 reports feeling terrible; significant right ear and sinus pain/congestion. Seen in [place] ED that morning; note scanned. Began Augmentin that morning. and Mon: severe diarrhea. Pt describes as barely leaving the toilet both those days. Right ear and sinus pain improved. 11/08: Diarrhea improved to 4 loose stools; able to return to work. Today: Right ear still full, having difficulty hearing; no ear pain or sinus pain. Non-productive coughing frequently, deeply. Pt reports feeling worn down yet. Reviewed with Dr. Verduzco via phone. 3 options: 1) Proceed with chemo today with dose reduction to 60mg/m2. 2) Return or later next week to give more time to recover. 3) Return next Mon as previously scheduled routine. Discussed at length with pt. Pt expresses wanting to be treated today but is concerned about risk of this illness dragging out longer or risk of pneumonia, when keno writer reviewed risks with her. Due to her work schedule, she plans to return next Monday as previously scheduled.
[2023-11-16] MEDS: SODIUM CHLORIDE 0.9 % (FLUSH) 10 ML SYRINGE IVF (13:01)
[2023-11-16] MEDS: HEPARIN 500 UNIT/5 ML SYRINGE IVF (13:02)
[2023-11-16 13:13] LABS: Basophils Absolute Auto 0.04 K/uL (0.00-0.30); Basophils Percent Auto 0.6 % (0.0-3.0); Eosinophils Percent Auto 3.1 % (0.0-7.0); Hematocrit 36.5 % (33.0-51.0); Hemoglobin* 12.1 gm/dL (12.0-16.0); Immature Granulocytes Abs Auto 0.01 K/uL (0.00-0.30); Immature Granulocytes Pct Auto 0.2 %; Lymphocytes Absolute Auto 1.87 K/uL (0.90-2.90); Lymphocytes Percent Auto 29.4 % (20-44); Mean Corpuscular HGB Conc 33 gm/dL (32-36); Mean Corpuscular Hemoglobin 32 pg (26-34); Mean Corpuscular Volume 95 fL (80-100); Monocytes Percent Auto 11.5 % (0.0-11.0); Neutrophils Absolute Auto 3.51 K/uL (1.7-7.0); Neutrophils Percent Auto 55.2 % (42.0-72.0); Platelet Count* 347 K/uL (140-440); RDW Coefficient of Variation % 15.3 % (11.5-15.5); Red Blood Count 3.84 m/uL (4.00-5.20); White Blood Count* 6.36 K/uL (4.50-11.00)
[2023-11-16 13:17] LABS: Slide Review Reflex No
[2023-11-16 13:30] LABS: Chloride* 112 mmol/L (96-114); Potassium* 3.5 mmol/L (3.6-5.1); Sodium* 142 mmol/L (135-149)
[2023-11-16 13:32] LABS: Creatinine* 0.6 mg/dL (0.5-1.5); Est. Creatinine Clearance* 100.34; Estimated Glomerular Filt Rate 107 ml/min
[2023-11-16 13:33] LABS: Alanine Aminotransferase* 25 U/L (4-35); Alkaline Phosphatase* 80 U/L (40-150); Anion Gap 6 mEq/L (7-15); Aspartate Amino Transferase* 25 U/L (12-35); Bilirubin Total* 0.4 mg/dL (0.1-1.5); Blood Urea Nitrogen* 22 mg/dL (7-30); Calcium* 9.1 mg/dL (8.4-10.6); Carbon Dioxide* 24 mmol/L (20-32); Glucose* 108 mg/dL (60-115); Total Protein* 6.7 g/dL (6.0-8.3)
[2023-11-17 08:28] VITALS: BP 127/77; PULSE 72; RESP 18; TEMP 36.8; O2SAT 100
[2023-11-17] MEDS: 0.9 % SODIUM CHLORIDE 250 ml IV (08:38)
[2023-11-17] MEDS: ONDANSETRON 2 MG/ML inj 8 MG IVP (08:39)
[2023-11-17] MEDS: SODIUM CHLORIDE 0.9 % (FLUSH) 10 ML SYRINGE IVF ×2 (08:39→12:10)
[2023-11-17] MEDS: dexAMETHasone 20 MG in 0.9 % SODIUM CHLORIDE 100 ml 100 ML 420 MG IVPB (09:46)
[2023-11-17] MEDS: FAMOTIDINE 20 MG, diphenhydrAMINE 50 MG in 0.9 % SODIUM CHLORIDE 100 ml 100 ML 310 MG IVPB (10:09)
[2023-11-17] MEDS: HEPARIN 500 UNIT/5 ML SYRINGE IVF (12:10)
[2023-11-24 08:33] VITALS: BP 126/83; PULSE 74; RESP 17; TEMP 36.4; O2SAT 96
[2023-11-24] MEDS: SODIUM CHLORIDE 0.9 % (FLUSH) 10 ML SYRINGE IVF ×2 (09:00→12:45)
[2023-11-24 09:16] LABS: Hematocrit 37.3 % (33.0-51.0); Hemoglobin* 12.2 gm/dL (12.0-16.0); Lymphocytes Percent Auto 25.4 % (20-44); Mean Corpuscular HGB Conc 33 gm/dL (32-36); Mean Corpuscular Hemoglobin 32 pg (26-34); Mean Corpuscular Volume 96 fL (80-100); Neutrophils Percent Auto 58.4 % (42.0-72.0); Platelet Count* 359 K/uL (140-440); RDW Coefficient of Variation % 14.9 % (11.5-15.5); Red Blood Count 3.87 m/uL (4.00-5.20)
[2023-11-24 09:17] LABS: Basophils Absolute Auto 0.06 K/uL (0.00-0.30); Basophils Percent Auto 1.2 % (0.0-3.0); Eosinophils Absolute Auto 0.28 K/uL (0.00-0.50); Eosinophils Percent Auto 5.4 % (0.0-7.0); Immature Granulocytes Abs Auto 0.03 K/uL (0.00-0.30); Immature Granulocytes Pct Auto 0.6 %; Lymphocytes Absolute Auto 1.32 K/uL (0.90-2.90); Neutrophils Absolute Auto 3.04 K/uL (1.7-7.0)
[2023-11-24 09:28] LABS: Slide Review Reflex No
[2023-11-24 09:32] LABS: Chloride* 109 mmol/L (96-114)
[2023-11-24 09:33] LABS: Sodium* 139 mmol/L (135-149)
[2023-11-24 09:35] LABS: Anion Gap 5 mEq/L (7-15); Aspartate Amino Transferase* 27 U/L (12-35); Bilirubin Total* 0.7 mg/dL (0.1-1.5); Carbon Dioxide* 25 mmol/L (20-32); Creatinine* 0.6 mg/dL (0.5-1.5); Est. Creatinine Clearance* 96.45; Estimated Glomerular Filt Rate 107 ml/min; Total Protein* 6.9 g/dL (6.0-8.3)
[2023-11-24 09:36] LABS: Alanine Aminotransferase* 29 U/L (4-35); Alkaline Phosphatase* 73 U/L (40-150); Blood Urea Nitrogen* 24 mg/dL (7-30); Calcium* 9.1 mg/dL (8.4-10.6); Glucose* 102 mg/dL (60-115)
[2023-11-24] MEDS: ONDANSETRON 2 MG/ML inj 8 MG IVP (10:26)
[2023-11-24] MEDS: 0.9 % SODIUM CHLORIDE 250 ml IV (10:26)
[2023-11-24] MEDS: dexAMETHasone 20 MG in 0.9 % SODIUM CHLORIDE 100 ml 100 ML 420 MG IVPB (10:26)
[2023-11-24] MEDS: FAMOTIDINE 20 MG, diphenhydrAMINE 50 MG in 0.9 % SODIUM CHLORIDE 100 ml 100 ML 420 MG IVPB (10:46)
[2023-11-24] MEDS: HEPARIN 500 UNIT/5 ML SYRINGE IVF (12:45)
[2023-12-01 08:44] VITALS: BP 110/73; PULSE 73; RESP 16; TEMP 35.8; O2SAT 97
[2023-12-01] MEDS: ALTEPLASE 2 MG INJ IVF (09:09)
[2023-12-01 09:15] LABS: Basophils Absolute Auto 0.06 K/uL (0.00-0.30); Basophils Percent Auto 1.3 % (0.0-3.0); Eosinophils Absolute Auto 0.23 K/uL (0.00-0.50); Hematocrit 36.2 % (33.0-51.0); Hemoglobin* 11.9 gm/dL (12.0-16.0); Immature Granulocytes Abs Auto 0.03 K/uL (0.00-0.30); Immature Granulocytes Pct Auto 0.6 %; Lymphocytes Absolute Auto 1.26 K/uL (0.90-2.90); Lymphocytes Percent Auto 27.2 % (20-44); Mean Corpuscular HGB Conc 33 gm/dL (32-36); Mean Corpuscular Hemoglobin 32 pg (26-34); Mean Corpuscular Volume 97 fL (80-100); Monocytes Percent Auto 7.3 % (0.0-11.0); Neutrophils Absolute Auto 2.72 K/uL (1.7-7.0); Neutrophils Percent Auto 58.6 % (42.0-72.0); Platelet Count* 347 K/uL (140-440); RDW Coefficient of Variation % 15.3 % (11.5-15.5); Red Blood Count 3.73 m/uL (4.00-5.20); White Blood Count* 4.64 K/uL (4.50-11.00)
[2023-12-01 09:16] LABS: Slide Review Reflex No
[2023-12-01 09:21] LABS: Chloride* 110 mmol/L (96-114); Potassium* 3.8 mmol/L (3.6-5.1); Sodium* 141 mmol/L (135-149)
[2023-12-01 09:23] LABS: Anion Gap 7 mEq/L (7-15); Aspartate Amino Transferase* 25 U/L (12-35); Bilirubin Total* 0.4 mg/dL (0.1-1.5); Carbon Dioxide* 24 mmol/L (20-32); Creatinine* 0.8 mg/dL (0.5-1.5); Est. Creatinine Clearance* 72.34; Estimated Glomerular Filt Rate 88 ml/min
[2023-12-01 09:24] LABS: Alanine Aminotransferase* 24 U/L (4-35); Alkaline Phosphatase* 75 U/L (40-150); Blood Urea Nitrogen* 28 mg/dL (7-30); Calcium* 9.1 mg/dL (8.4-10.6); Glucose* 104 mg/dL (60-115); Total Protein* 6.8 g/dL (6.0-8.3)
[2023-12-01] MEDS: ONDANSETRON 2 MG/ML inj 8 MG IVP (09:55)
[2023-12-01] MEDS: 0.9 % SODIUM CHLORIDE 250 ml IV (09:55)
[2023-12-01] MEDS: SODIUM CHLORIDE 0.9 % (FLUSH) 10 ML SYRINGE IVF ×2 (09:55→12:40)
[2023-12-01] MEDS: HEPARIN 500 UNIT/5 ML SYRINGE IVF (09:56)
[2023-12-01] MEDS: FAMOTIDINE 20 MG, diphenhydrAMINE 50 MG in 0.9 % SODIUM CHLORIDE 100 ml 100 ML 310 MG IVPB (10:02)
[2023-12-01] MEDS: dexAMETHasone 20 MG in 0.9 % SODIUM CHLORIDE 100 ml 100 ML 400 MG IVPB (10:41)
[2023-12-07 12:15] LABS: Basophils Absolute Auto 0.04 K/uL (0.00-0.30); Basophils Percent Auto 0.9 % (0.0-3.0); Eosinophils Absolute Auto 0.11 K/uL (0.00-0.50); Eosinophils Percent Auto 2.4 % (0.0-7.0); Hematocrit 34.3 % (33.0-51.0); Hemoglobin* 11.4 gm/dL (12.0-16.0); Immature Granulocytes Abs Auto 0.02 K/uL (0.00-0.30); Immature Granulocytes Pct Auto 0.4 %; Lymphocytes Absolute Auto 1.21 K/uL (0.90-2.90); Lymphocytes Percent Auto 25.9 % (20-44); Mean Corpuscular HGB Conc 33 gm/dL (32-36); Mean Corpuscular Hemoglobin 32 pg (26-34); Mean Corpuscular Volume 97 fL (80-100); Monocytes Percent Auto 7.1 % (0.0-11.0); Neutrophils Absolute Auto 2.96 K/uL (1.7-7.0); Neutrophils Percent Auto 63.3 % (42.0-72.0); Platelet Count* 345 K/uL (140-440); RDW Coefficient of Variation % 15.2 % (11.5-15.5); Red Blood Count 3.52 m/uL (4.00-5.20); White Blood Count* 4.67 K/uL (4.50-11.00)
[2023-12-07 12:19] LABS: Slide Review Reflex No
[2023-12-07 12:27] LABS: Chloride* 111 mmol/L (96-114)
[2023-12-07 12:28] LABS: Sodium* 139 mmol/L (135-149)
[2023-12-07 12:30] LABS: Anion Gap 5 mEq/L (7-15); Aspartate Amino Transferase* 25 U/L (12-35); Bilirubin Total* 0.6 mg/dL (0.1-1.5); Blood Urea Nitrogen* 22 mg/dL (7-30); Carbon Dioxide* 23 mmol/L (20-32); Creatinine* 0.6 mg/dL (0.5-1.5); Est. Creatinine Clearance* 96.45; Estimated Glomerular Filt Rate 107 ml/min; Total Protein* 6.8 g/dL (6.0-8.3)
[2023-12-07 12:31] LABS: Alanine Aminotransferase* 22 U/L (4-35); Alkaline Phosphatase* 78 U/L (40-150); Calcium* 9.2 mg/dL (8.4-10.6); Glucose* 105 mg/dL (60-115)
[2023-12-08 08:47] VITALS: BP 118/78; PULSE 71; RESP 16; TEMP 36.1; O2SAT 99
[2023-12-08] MEDS: SODIUM CHLORIDE 0.9 % (FLUSH) 10 ML SYRINGE IVF (09:15)
[2023-12-08] MEDS: 0.9 % SODIUM CHLORIDE 250 ml IV (09:15)
[2023-12-08] MEDS: ONDANSETRON 2 MG/ML inj 8 MG IVP (10:10)
[2023-12-08] MEDS: dexAMETHasone 20 MG in 0.9 % SODIUM CHLORIDE 100 ml 100 ML 420 MG IVPB (10:10)
[2023-12-08] MEDS: FAMOTIDINE 20 MG, diphenhydrAMINE 50 MG in 0.9 % SODIUM CHLORIDE 100 ml 100 ML 309 MG IVPB (10:28)
[2023-12-08 15:06] LABS: Estradiol Premenol Female 39 pg/mL
[2023-12-09 01:41] LABS: Follicle Stimulating Hormone 61.2 IU/L; Luteinizing Hormone 36.4 IU/L
[2024-01-04 14:28] LABS: Basophils Absolute Auto 0.05 K/uL (0.00-0.30); Basophils Percent Auto 0.6 % (0.0-3.0); Eosinophils Absolute Auto 0.25 K/uL (0.00-0.50); Eosinophils Percent Auto 3.2 % (0.0-7.0); Hematocrit 38.9 % (33.0-51.0); Hemoglobin* 12.6 gm/dL (12.0-16.0); Lymphocytes Absolute Auto 1.64 K/uL (0.90-2.90); Lymphocytes Percent Auto 21.2 % (20-44); Mean Corpuscular HGB Conc 32 gm/dL (32-36); Mean Corpuscular Hemoglobin 32 pg (26-34); Mean Corpuscular Volume 99 fL (80-100); Monocytes Percent Auto 8.9 % (0.0-11.0); Neutrophils Absolute Auto 5.12 K/uL (1.7-7.0); Neutrophils Percent Auto 66.1 % (42.0-72.0); Platelet Count* 309 K/uL (140-440); RDW Coefficient of Variation % 13.8 % (11.5-15.5); Red Blood Count 3.93 m/uL (4.00-5.20); White Blood Count* 7.75 K/uL (4.50-11.00)
[2024-01-04 14:30] LABS: Slide Review Reflex No
[2024-01-04 14:39] LABS: Albumin* 4.2 g/dL (3.3-5.0); Chloride* 111 mmol/L (96-114); Sodium* 142 mmol/L (135-149)
[2024-01-04 14:40] LABS: Potassium* 3.4 mmol/L (3.6-5.1)
[2024-01-04 14:42] LABS: Alanine Aminotransferase* 24 U/L (4-35); Alkaline Phosphatase* 84 U/L (40-150); Anion Gap 7 mEq/L (7-15); Aspartate Amino Transferase* 27 U/L (12-35); Bilirubin Total* 0.6 mg/dL (0.1-1.5); Blood Urea Nitrogen* 24 mg/dL (7-30); Carbon Dioxide* 24 mmol/L (20-32); Creatinine* 0.7 mg/dL (0.5-1.5); Est. Creatinine Clearance* 82.67; Estimated Glomerular Filt Rate 103 ml/min; Total Protein* 7.2 g/dL (6.0-8.3)
[2024-01-04 14:43] LABS: Calcium* 9.2 mg/dL (8.4-10.6); Glucose* 123 mg/dL (60-115)
[2024-01-05] MEDS: SODIUM CHLORIDE 0.9 % (FLUSH) 10 ML SYRINGE IVF ×2 (14:28→15:26)
[2024-01-05] MEDS: 0.9 % SODIUM CHLORIDE 250 ml IV (14:28)
[2024-01-05] MEDS: HEPARIN 500 UNIT/5 ML SYRINGE IVF (15:25)
[2024-01-26] MEDS: SODIUM CHLORIDE 0.9 % (FLUSH) 10 ML SYRINGE IVF ×2 (11:20→13:39)
[2024-01-26 11:29] VITALS: BP 126/82; PULSE 79; RESP 17; TEMP 36.8; O2SAT 99
[2024-01-26 11:47] LABS: Basophils Absolute Auto 0.05 K/uL (0.00-0.30); Basophils Percent Auto 0.7 % (0.0-3.0); Eosinophils Percent Auto 2.8 % (0.0-7.0); Hematocrit 43.8 % (33.0-51.0); Hemoglobin* 14.2 gm/dL (12.0-16.0); Immature Granulocytes Abs Auto 0.01 K/uL (0.00-0.30); Immature Granulocytes Pct Auto 0.1 %; Lymphocytes Absolute Auto 1.56 K/uL (0.90-2.90); Lymphocytes Percent Auto 21.8 % (20-44); Mean Corpuscular HGB Conc 32 gm/dL (32-36); Mean Corpuscular Hemoglobin 32 pg (26-34); Mean Corpuscular Volume 98 fL (80-100); Monocytes Percent Auto 8.1 % (0.0-11.0); Neutrophils Absolute Auto 4.74 K/uL (1.7-7.0); Neutrophils Percent Auto 66.5 % (42.0-72.0); Platelet Count* 340 K/uL (140-440); RDW Coefficient of Variation % 12.6 % (11.5-15.5); Red Blood Count 4.47 m/uL (4.00-5.20); White Blood Count* 7.14 K/uL (4.50-11.00)
[2024-01-26 11:48] LABS: Slide Review Reflex No
[2024-01-26 12:00] LABS: Albumin* 4.7 g/dL (3.3-5.0); Chloride* 111 mmol/L (96-114)
[2024-01-26 12:01] LABS: Potassium* 3.6 mmol/L (3.6-5.1); Sodium* 142 mmol/L (135-149)
[2024-01-26 12:03] LABS: Alkaline Phosphatase* 97 U/L (40-150); Anion Gap 5 mEq/L (7-15); Aspartate Amino Transferase* 30 U/L (12-35); Blood Urea Nitrogen* 22 mg/dL (7-30); Carbon Dioxide* 26 mmol/L (20-32); Creatinine* 0.7 mg/dL (0.5-1.5); Est. Creatinine Clearance* 82.67; Estimated Glomerular Filt Rate 103 ml/min; Total Protein* 8.1 g/dL (6.0-8.3)
[2024-01-26 12:04] LABS: Alanine Aminotransferase* 25 U/L (4-35); Calcium* 9.3 mg/dL (8.4-10.6); Glucose* 114 mg/dL (60-115)
[2024-01-26] MEDS: HEPARIN 500 UNIT/5 ML SYRINGE IVF (13:39)
--- NOTE | 2024-01-26 14:19 | ONC.NURNOTE ---
Pt presents to [facility] for Ogivri infusion today reporting several difficulties in recent weeks: 1) Reports having hearing issues in her right ear again. She describes it as muffled and crackly; those symptoms do go away if she pulls up and back on her ear but return instantly. Previously recommend to be seen by ENT; she describes her symptoms resolving by the time of the ENT appt, so she did not go in. She is taking Zyrtec daily; denies sinus or nasal congestion/any other cold symptoms. Encouraged her to be seen by PCP or ENT. In the mean time noted pt could try swallowing or yawning while holding ear back in the aforementioned position; used warm packs below ear and massage under ear with downward motion to encourage eustachian tube drainage. 2) Reports severe left elbow pain with bending that joint farther than 90 degrees. She describes the pain as sharp and shooting partway down the posterior part of her forearm. She says this happened suddenly ~ 2 wks ago, with no known injury or change in sleeping position. Recommended she have it evaluated by PCP. For symptom management before that appointment, suggested RICE -- rest, frequent icing, could try a forearm brace for tendonitis/tennis elbow and also avoid bending to the angle of severe pain until it is evaluated by PCP, reinforcing to be seen as soon as she can. 3) Reports she chipped a back right molar, which left sharp edges that cut up her tongue. She saw a dentist this morning who was able to smooth the edges. Reviewed symptoms of mouth sores/thrush with the tongue lacerations, although not increased likelihood with Ogivri treatment. Recommended salt water rinses if noticing increased soreness, s/s canker sore, etc. 4) Reports significant worsening of insomnia ~ 3 wks ago. She denies any life changes, new stressors, depression or anxiety, med changes around that time. Before the recent change her sleep habits were going to bed ~ 10-11pm and wake at 4a for work. Now she is noting she is falling asleep ~ 7-8pm, sleeps for 2.5-3 hrs then wakes up to go to the bathroom, but is unable to fall back asleep after, describing as tossing and turning and possibly dozing. When her alarm goes off at 4a she is extremely tired, which carries through the day on her drive into work, throughout her shift and into the evening. She describes it as difficult to stay awake. Prior to chemotx she took Melatonin 3 mg at HS, falling asleep ~ 30 min later; since beginning chemo she has added in Benadryl 25mg at HS. She has ~ 1 pop ~ 2x/week at lunch time. Gave pt handout for insomnia mgt, highlighting cognitive behavioral tools suggested as types of relaxation, along with numerous tips for healthy sleep hygeine. Reviewed with Brenda Michael APRN; concur that this is likely unrelated to Dionisio romero or her diagnosis. Gift Shop Clerk requested TSH be added to labs drawn today. Recommend see PCP for insomnia mgt. Pt has call out to PCP to be seen as soon as possible. Lastly, pt requesting a note from Provider allowing her to resume more walking with her work duties with the exception of being able to modify as needed based on varying fatigue levels. BNN to discuss with Maegan Garcia PA-C 01/28. Pt's son-in-law able to orange picker letter from main entrance desk Mon or afternoon. Pt scheduled to f/u with Maegan Garcia PA-C 02/06.
== END 2024-02-12 23:59 | disposition home or self-care (01) ==
LOC: CCIC 14:30
PROVIDERS: Clinical Nurse Specialist; Physician Assistant; PCP Nurse Practitioner Family; Referring Provider Nurse Practitioner Family; Visit Provider Internal Medicine Hematology & Oncology
DX: C50.911 Malignant neoplasm of unspecified site of right female breast (principal); Z17.0 Estrogen receptor positive status [ER+]; Z90.13 Acquired absence of bilateral breasts and nipples
CPT/HCPCS: 36415; 36591; 80053; 82670; 83001; 83002; 84443; 85025; 96376; 96413; 96415; 96417; 99202; 99205; 99211; 99214; 99215; G0463; J1100; J1200; J1642; J2405; J2920; J2997; J7030; J7050; J9267; Q5114; S0028

== ENCOUNTER 2024-03-13 09:02 | Outpatient (CLI) | payer BC, SELFPAY ==
--- OUTSIDE RECORDS SUMMARY | 2024-03-13 09:04 | XMS_ITS | Clinical Summary ---
Author Organization [facility] Address [place], [place] [address] Care Team Providers Care Parachute Crown Sewer Name Role Phone Sola Kwan APRN, OIL HEATER INSTALLER Primary Care Provider Pcp, No Unavailable Unavailable Allergies No known active allergies Medications Medication Sig Dispensed Refills Start Date End Date Status nitroglycerin (NITRO-BID) 2 % ointmentIndications:R aynaud's syndrome Apply 0.5 Inches topically to affected area(s) every 6 hours. 1 Tube 0 11/21/2012 Active Social History Tobacco Use Types Packs/Day [...] (1 of 2) 2019 COVID-19 vaccine series ( season) 2023 06/14/2022 Influenza for age 50-64 04/28/2024 Pneumococcal series for age 6-64 Aged Out No longer eligible based on patient's age to complete this topic Care Teams Parachute Crown Sewer Relationship Specialty Start Date End Date Sola Kwan, SALES AND SUPPORT CENTER AGENT, OIL HEATER INSTALLER [address] [phone] PCP - General Nurse Practitioner - Family 08/25/23 Pcp, No . 08/25/23
--- OUTSIDE RECORDS SUMMARY | 2024-03-13 09:05 | XMS_ITS | Encounter Summary ---
Author Organization [facility] Address [address] [place] [phone] Care Team Providers Care Solvent Plant Treater Name Role Phone Sola Kwan APRN, C.N.P., D.N.P. Primary Ca re Provider Reason for Referral * Outpatient (Routine) - Authorized Specialty Diagnoses / Procedures Referred By Gal bryant Referred To Contact Endocrinology Diagnoses Obesity Body Mass Index 30-39.9 Adult Bri Whitfield APRN, C.N.P. [address] [place] [phone] [facility] Referral ID Status Reason Start Date Expiration Date V isits Requested Visits Authorized [id number] Authorized 03/04/2024 09/03/2025 1 1 Scheduling Instructions Okay to schedule with any nutrition BALDEV/MD pending availability. Encounter Details Date Type Department Care Team (Late st Contact Info) Description 03/04/2024 Orders Only Division of Endocrinology in [place], [place] [address] [place] [phone] Bri Whitfield APRN, C.N.P. [address] [place] [phone] Obesity Body Mass Index 30-39.9 Adult (Primary Dx) Social History Tobacco Use Types [...] often do you attend chur ch or restoration services? Never 07/27/2020 Do you belong to any clubs o r organizations such as presybeterian groups, unions, fraternal or athletic groups, or [...] Answer Date Recorded PHQ-2 Score 0 09/29/2022 [employer] of Occupat ional [facility] - Occupational Stress Questionnaire Answer Date Recorded [...] your living situation today? [facility] live 05/11/2023 Education Answer [...] as of this encounter Plan of Treatment Upcoming Encounters Date Type Department Care Team (Late st Contact Info) Description 04/16/2024 10:00 AM CDT Comprehensive Visit Department of Family Medicine, [facility], in [address] [phone] Sola Kwan APRN C.N.P., D.N.P. [address] [place] [phone] Scheduled Procedures Name Priority Associated Diagnoses Date/Ti me REMOVAL TISSUE PHOTOGRAPHY ASSISTANT BREAST Absence Of Breast Acquired Bilateral INJECTION FAT Absence Of Breast Acquired Bilateral RECONSTRUCTION BREAST WITH IMPLANT Absence Of Breast Acquired Bilateral Scheduled Referrals Name Type Priority Associated Diagnoses Order Schedule Endocrinology office visit (clinic) Outpatient Referral Routine Obesity Body Mass Index 30-39.9 Adult Expected: 03/04/2024, Expires: 06/04/2025 documented as of this encounter Visit Diagnoses Diagnosis Obesity Body Mass Index 30-39.9 Adult- Primary documented in this encounter Additional Health Concerns Assessment Noted Time PHQ-9 Depression Total Score: 0 10/30/19 14 3:19 PM NAILHEAD PUNCHER documented as of this encounter Care Teams Solvent Plant Treater Relationship Specialty Start Date End Date Sola Kwan APRN, C.N.P., D.N.P. [address] [place] [phone] PCP - General Family Medicine 05/24/22 documented as of this encounter
--- OUTSIDE RECORDS SUMMARY | 2024-03-13 09:05 | XMS_ITS | Referral Summary ---
Author Organization [facility] Address [address] [place] [address] Care Team Providers Care Social Security Assessor Name Role Phone Sola Kwan APRN, C.N.P., D.N.P. Primary Ca re Provider Source Comments Patient records contain information from all sites at [facility]. For routine questions regarding patient records, call [phone] during business hours, M-F 8:00 AM - 5:00 PM Central Time. Record requests for emergency care only can be directed to [phone] at any time.[facility] Encounters Date Type Department Care Team Description 03/04/2024 Clinical Communication Division of Endocrinology in [place], [place] [address] [place] [phone] Monet Gr PDarenA.-C. Rx Prior Authorization (Wegovy or Qsymia?) 03/04/2024 Clinical Communication Division of Endocrinology in [place], [place] [address] [place] [phone] Bri Whitfield APRN, C.N.P. Appt Request 03/04/2024 Orders Only Division of Endocrinology in [place], [place] [address] [place] [phone] Bri Whitfield APRN, C.N.P. Obesity Body Mass Index 30-39.9 Adult (Primary Dx) 03/04/2024 Refill Division of Endocrinology in [place], [place] [address] [place] [phone] Monet Gr P.A.-C. Med Refill 03/04/2024 Refill Division of Endocrinology in [place], [place] [address] [place] [phone] Monet Gr P.A.-C. Med Refill 01/26/2024 Clinical Communication Department of Family Medicine, [facility] [place] [facility], in [address] [phone] Sola Kwan APRN, C.N.P., D.N.P. Earache 01/05/2024 Clinical Communication Division of Plastic Surgery in [place], [place] [address] [place] [phone] Moe Leger M.D. 12/27/2023 Orders Only Division of Plastic Surgery in [place], [place] [address] [place] [phone] Yelena Covington APRN, C.N.P., D.N.P. Absence Of Breast Acquired Bilateral (Primary Dx) from Last 3 Months Allergies No known active allergies Medications Medication Sig Dispensed Refills Start Date End Date Status multivitamin capsule Take 1 tablet by mouth daily. 10/15/2012 Active ibuprofen/diphenhyd ramine cit (ADVIL PM ORAL) Take by mouth at bedtime. 2-3 tabs Active acetaminophen (TYLENOL) 500 mg tablet Take 2 tablets (1,000 mg total) by mouth every 6 (six) hours. 07/18/2023 Active ibuprofen (ADVIL,MOTRIN) 200 mg tablet Take 3 tablets (600 mg total) by mouth every 8 (eight) hours as needed for pain. 07/20/2023 Active sennosides-docusate sodium (SENOKOT-S) 8.6-50 mg per tablet Take 1 tablet by mouth 2 (two) times a day. 07/18/2023 Active oxyCODONE (ROXICODONE) 5 mg immediate release tabletIndications:A cute Pain Take 1 tablet (5 mg total) by mouth every 4 (four) hours as needed for pain Indication: Acute Pain. 10 tablet 07/18/2023 Active cefadroxil (DURICEF) 500 mg capsule Take 1 capsule (500 mg total) by mouth 2 (two) times a day. Take while drains remain in place. 25 capsule 07/18/2023 Active lidocaine-prilocain e (EMLA) 2.5-2.5 % cream 09/07/2023 Active nitroglycerin (NITRO-BID) 2 % ointment Apply 0.5 inches topically every 6 (six) hours. 11/21/2012 Active ondansetron (ZOFRAN) 4 mg tablet 08/16/2023 Active prochlorperazine (COMPAZINE) 10 mg tablet 08/16/2023 Active semaglutide (WEGOVY) 0.25 mg/0.5 mL pen injector injection Inject 0.25 mg under the skin every 7 (seven) days. 2 mL 10/10/2023 Active semaglutide (WEGOVY) 0.5 mg/0.5 mL pen injector injection Inject 0.5 mg under the skin every 7 (seven) days. 2 mL 11 10/10/2023 Active semaglutide (WEGOVY) 1 mg/0.5 mL [...] 7 (seven) days. 9 mL 11 10/10/2023 Active phentermine-topiram ate (Qsymia) 3.75-23 mg capsule, ER multiphase 24 hr ext release capsuleIndications: Obesity Body Mass Index 30-39.9 Adult Take 1 capsule by mouth daily. 14 capsule 10/24/2023 Active phentermine-topiram ate (Qsymia) 7.5-46 mg capsule, ER multiphase 24 hr ext release capsuleIndications: Obesity Body Mass Index 30-39.9 Adult Take 1 capsule by mouth daily. 30 capsule 3 10/24/2023 Active amoxicillin-pot clavulanate (AUGMENTIN) 875-125 mg per tablet Take 1 tablet by mouth 2 (two) times a day. 20 tablet 12/04/2023 Active fluticasone propionate (FLONASE) 50 mcg/actuation nasal spray Administer 2 sprays into each nostril daily. 16 g 12/04/2023 Active omeprazole (PriLOSEC) [address] capsuleIndications: Gastroesophageal Reflux Disease Without Esophagitis Take 1 capsule (40 mg total) by mouth daily. Visit needed for further refills. 90 capsule 12/08/2023 Active Active Problems Problem Noted Date Diagnosed Date Absence Of Breast Acquired Bilateral 12/27/2023 Malignant Neoplasm Of Unspec ified Site Of Laterality Unknown Female Breast 08/04/2023 Cancer Staging:Pathologic stage from 07/18/2023:Stage IA(pT1a, pN0, cM0, G3, ER+, RI-, HER2+) - Signed by Candida Meyer M.B., B.Ch. on 08/04/2023 Intraductal Carcinoma In Situ Of Right Breast Obesity Body Mass Index 30-39.9 Adult 04/26/2022 Bite Dog Hand Open Sequela Right 09/19/2021 Exposure Rabies 09/19/2021 Screening Cancer Colon 06/07/2021 Overview: Added automatically from request for surgery [id number] Apnea Sleep Obstructive 06/07/2021 Impaired Fasting Glucose [...] week 07/27/2020 How often do you attend [facility] or druze services? Never 07/27/2020 Do you belong to any clubs o r organizations such as sabianism groups, unions, fraternal or athletic groups, or [...] Answer Date Recorded PHQ-2 Score 0 09/29/2022 [facility] of Occupat ional [facility] - Occupational Stress Questionnaire Answer Date [...] money to buy more. Never true 05/11/20 Within the past 12 months, t he [...] your living situation today? I have a [facility] place to live 05/11/2023 Education Answer [...] 169 cm (5' 6.54) 08/25/2023 10:03 AM LAND TITLE EXAMINER Body Mass Index 39.71 08/25/2023 10:03 AM LAND TITLE EXAMINER Plan of Treatment Upcoming Encounters Date Type Department Care Team (Late st Contact Info) Description 04/16/2024 10:00 AM CDT Comprehensive Visit Department of Family Medicine, [facility] [place] [facility], in [address] [phone] Sola Kwan APRN, C.N.P., D.N.P. [address] [place] [phone] Scheduled Procedures Name Priority Associated Diagnoses Date/Ti me REMOVAL TISSUE PROCESSES CHEMICAL DESIGN ENGINEER BREAST Absence Of Breast Acquired Bilateral INJECTION FAT Absence Of Breast Acquired Bilateral RECONSTRUCTION BREAST WITH IMPLANT Absence Of Breast Acquired Bilateral Medical Devices Implanted Type Area Script Editor Device Identifier Shelf Expiration Date Model / Serial / Lot Exp Brst Nacl Valencia Ayala 550cc - [id number] - [id number] Implanted:Qt y: 1 on 07/18/2023 by Moe Leger M.D. at [facility] Breast Implant Right: Breast [employer] [id number] 11/24/2026 SCPX-135 / [id number] / [id number] Exp Brst Nacl Rnd 550cc - [id number] - [id number] Implanted:Qt y: 1 on 07/18/2023 by Moe Leger M.D. at [facility] Breast Implant Left: Breast [employer] [employer] [id number] 06/11/2027 SCPX-135 / [id number] / [id number] Clp Hrzn Ti 6 Clp Dell - [id number] Implanted:Qt y: 1 on 07/18/2023 by Veronica Joy M.D. at [facility] Hardware e.g. pins/screws /rods [employer] [id number] 01/11/2028 [id number] / / [id number] Clp Hrzn Ti 6 Clp Dell - [id number] Implanted:Qt y: 1 on 07/18/2023 by Veronica Joy M.D. at [facility] Hardware e.g. pins/screws /rods [employer] [id number] 01/11/2028 [id number] / / [id number] Clp Hrzn Ti 24 Clp Dell - [id number] Implanted:Qt y: 1 on 07/18/2023 by Veronica Joy M.D. at [facility] Hardware e.g. pins/screws /rods [employer] [id number] 05/09/2028 [id number] / / [id number] Mrk Biop Tmr Q Shp [id number] - [id number] Implanted:Qt y: 1 on 04/26/2023 at [facility] [employer] 10/25/2027 [id number] / / [id number] Mrk Biop Site - [id number] Implanted:Qt y: 1 on 05/10/2023 at [facility] [employer] 10/26/2026 TUMARK-E 13-S-VIS ION / / [id number] Mrk Biop [facility] Strtc 9ga - [id number] Implanted:Qt y: 1 on 05/10/2023 at [facility] [employer] 01/21/2024 TRIMARK- EVIVA- [id number] Mrk Biop Trm Brst Strtc 9ga - [id number] Implanted:Qt y: 1 on 05/10/2023 at [facility] [employer] 01/21/2024 TRIMARK- EVIVA- / [id number] Procedures Procedure Name Priority Date/Time Associated Diagnosis Comments GLUCOSE, FASTING, S/P Routine 07/21/2023 9:49 AM LAND TITLE EXAMINER Screening Examination Diabetes Mellitus MR BREAST BILATERAL WITHOUT AND WITH IV CONTRAST RAD - Routine (most inpatients and all outpatients) 05/02/2023 12:26 PM CDT Abnormal Mammogram Microcalcification Cancer Breast Family History Cancer Breast Ductal In Situ Right COLONOSCOPY 04/19/2023 8:36 AM CDT LIPID PANEL, S Routine 09/12/2019 11:24 AM LAND TITLE EXAMINER Screening Lipid from Last 3 Months or Most Recently Relevant to Health Maintenance Results * (ABNORMAL) Glucose, Fasting (07/21/2023 9:49 AM LAND TITLE EXAMINER) Glucose, P 108(H) 70 - 100 mg/dL 07/21/2023 10:06 AM LAND TITLE EXAMINER CNFL Last Intake 10 hr 07/21/2023 9:50 AM LAND TITLE EXAMINER CNFL Blood (Blood, Venous) 07/21/2023 9:49 AM LAND TITLE EXAMINER 07/21/2023 9:50 AM LAND TITLE EXAMINER Sola Kwan APRN, C.N.P., D.N.P. LAB BLOOD NON ADD-ON [facility] [address] [place] [phone], [facility] CNFL [facility] in [address] [address] * (ABNORMAL) MR Breast Bilateral without and with IV Contrast (05/02/2023 12:26 PM CDT) Anatomical Region Laterality Modality Breast, Breast Imaging RST L OS, Breast Imaging ARZ LOS, Breast Imaging FLA LOS Bilateral Magnetic Resonance 05/02/2023 1:08 PM CDT Impressions 05/02/2023 1:53 PM CDT 1. At the biopsy site in the right breast, middle depth 3.4 x 2.5 cm non masslike heterogeneous clumped enhancement concerning for DCIS. 2. Additional multiple foci of enhancement (some appearing heterogeneous) in the anterior right breast, may represent additional sites of disease. 3. Large medial left breast cystic lesion with partial area of enhancement along the inferior margin. RECOMMENDATION: ??Surgical Consult and left breast ultrasound. 1. Repeat biopsy of the right breast anteriorly could be considered if breast conservation therapy is desired. 2. Diagnostic ultrasound of the medial left breast. ASSESSMENT: ??BI-RADS: 6: Known Biopsy-Proven Malignancy. Narrative 05/02/2023 1:53 PM CDT EXAM: ??MR BREAST BILATERAL WITHOUT AND WITH IV CONTRAST INDICATION: ??Cancer staging HISTORY: ??Right-sided DCIS. Assess extent of disease. Assess contralateral breast. HORMONAL STATUS: ??Hysterectomy. No hormones. COMPARISON: ??Prior exam(s) were available and reviewed for comparison. TECHNIQUE: ??Dynamic enhanced protocol using IV contrast administration with T1 and T2-weighted images and CAD image analysis. FIBROGLANDULAR TISSUE: ??b. Scattered fibroglandular tissue. ?? BACKGROUND PARENCHYMAL ENHANCEMENT: ??b. Mild FINDINGS: RIGHT BREAST: ??Postbiopsy changes of the right breast with non masslike heterogeneous clumped enhancement of the measuring approximately 3.4 x 2.5 cm along the nipple line, middle depth. Additionally in the right breast anteriorly there are multiple foci of enhancement, some appearing heterogeneous and clumped, for example in the lateral aspect of the right breast (series [id number] image 69 measuring 1.3 x 0.8 cm. These regions generally display persistent or plateau kinetic curve. RIGHT AXILLA: ??There are multiple prominent right axillary lymph nodes, none of which meet lymphadenopathy by size criteria. LEFT BREAST: In the medial left breast there is a 5.1 x 8.4 cm T2 hyperintense cystic lesion with subtle area of enhancement along the inferior margin (series [id number] image 365). No other suspicious enhancing lesion LEFT AXILLA: ??No left axillary lymphadenopathy. ?? CHEST WALL: ??No internal mammary lymphadenopathy. ?? Procedure Note Mati Rodarte M.D. - 05/02/2023 EXAM: MR BREAST BILATERAL WITHOUT AND WITH IV CONTRAST INDICATION: Cancer staging HISTORY: Right-sided DCIS. Assess extent of disease. Assess contralateralbreast. HORMONAL STATUS: Hysterectomy. No hormones. COMPARISON: Prior exam(s) were available and reviewed for comparison. TECHNIQUE: Dynamic enhanced protocol using IV contrast administrationwith T1 and T2-weighted images and CAD image analysis. FIBROGLANDULAR TISSUE: b. Scattered fibroglandular tissue. BACKGROUND PARENCHYMAL ENHANCEMENT: b. Mild FINDINGS: RIGHT BREAST: Postbiopsy changes of the right breast with non masslikeheterogeneous clumped enhancement of the measuring approximately 3.4 x 2.5 cm along the nippleline, middle depth. Additionally in the right breast anteriorly there are multiple foci ofenhancement, some appearing heterogeneous and clumped, for example in the lateral aspect of the rightbreast (series [id number] image 69 measuring 1.3 x 0.8 cm. These regions generally display persistent orplateau kinetic curve. RIGHT AXILLA: There are multiple prominent right axillary lymph nodes,none of which meet lymphadenopathy by size criteria. LEFT BREAST: In the medial left breast there is a 5.1 x 8.4 cm [id number] cystic lesion with subtle area of enhancement along the inferior margin (series [id number] ). No other suspicious enhancing lesion LEFT AXILLA: No left axillary lymphadenopathy. CHEST WALL: No internal mammary lymphadenopathy. IMPRESSION: 1. At the biopsy site in the right breast, middle depth 3.4 x 2.5 cm nonmasslike heterogeneous clumped enhancement concerning for DCIS. 2. Additional multiple foci of enhancement (some appearing heterogeneous)in the anterior right breast, may represent additional sites of disease. 3. Large medial left breast cystic lesion with partial area of enhancementalong the inferior margin. RECOMMENDATION: Surgical Consult and left breast ultrasound. 1. Repeat biopsy of the right breast anteriorly could be considered ifbreast conservation therapy is desired. 2. Diagnostic ultrasound of the medial left breast. ASSESSMENT: BI-RADS: 6: Known Biopsy-Proven Malignancy. Marilee Fields Chuckie Ruffin P.A.-C. MR I PROCEDURES * COLONOSCOPY (04/19/2023 8:36 AM CDT) Narrative Procedure Note Deonte Bryan M.D. - 04/19/2023 8:36 AM CDT [facility] Patient Name: Adela Slade Procedure Date: 04/19/2023 8:36 AM Date of : 1970 Age: 52 Gender: Female Procedure: Colonoscopy Providers: David Waters (Ordering Provider) Referring Provider: David Fonseca Pre-op Diagnoses: Screening for colorectal malignant neoplasm, Thisis the patient's first colonoscopy Post-op Diagnoses: - Diverticulosis in the sigmoid colon. - The examination was otherwise normal. - No specimens collected. Recommendation: - Repeat colonoscopy in 10 years for screening purposes. Findings: Multiple small-mouthed diverticula were found in the sigmoid colon. The exam was otherwise without abnormality. Medicines: Monitored Anesthesia Care Estimated Blood Loss: Estimated blood loss: none. Complications: No immediate complications. Estimated blood loss: None. Procedure Details: The patient was seen, evaluated, and history reviewed. Airway and heart and lung exams were performed and were satisfactory for plannedsedation care. The risks, benefits and alternatives for the procedure and sedation were discussed andinformed consent was obtained. A procedural pause was conducted in the presence of assisting personnelto verify the correct patient identity and procedureto be performed. Throughout the procedure, the patient's blood pressure, pulse, and oxygen saturations were monitored continuously. The Colonoscope was introduced under directvision through the anus and advanced to the terminalileum. The colonoscopy was performed without difficulty. The patient tolerated the procedure well. The quality of the bowel preparation was evaluatedusing the BBPS ([place] Bowel Preparation Scale) with scores of: Right Colon = 3, Transverse Colon = 3and Left Colon = 3 (entire mucosa seen well with no residual staining, small fragments of stool or opaque liquid). The total BBPS score equals 9. Sedation: Anesthesia was administered by an anesthesia professional. Thefollowing parameters were monitored: oxygen saturation, heart rate, blood pressure, respiratory rate, EKG, adequacy of pulmonary ventilation,and response to care. Deonte Bryan, 04/19/2023 8:38:08 AM This report has been signed electronically. Number of Addenda: 0 Note Initiated On: 04/19/2023 8:36 AM David Fonseca M.D., Ph.D. GI PROCEDURE OR DERABLES * Lipid Panel (09/12/2019 11:24 AM LAND TITLE EXAMINER) Cholesterol, Total 194 mg/dL 2019 12:18 PM LAND TITLE EXAMINER CNFL Comment: ----REFERENCE VALUE---- Desirable: < 200 Borderline high: 200 - 239 High: > or = 240 Triglycerides 95 mg/dL 09/12/2019 12:18 PM LAND TITLE EXAMINER CNFL Comment: ----REFERENCE VALUE---- Normal: <150 Borderline high: 150-199 High: 200-499 Very high: > or =500 Cholesterol, HDL, S 54 >=50 mg/dL 09/12/2019 12:18 PM LAND TITLE EXAMINER CNFL Calculated LDL 121 mg/dL 09/12/2019 12:18 PM LAND TITLE EXAMINER CNFL Comment: ----REFERENCE VALUE---- Desirable: <100 Above Desirable: 100-129 Borderline high: 130-159 High: 160-189 Very high: > or =190 Cholesterol, Non-HDL, Calculated 140 mg/dL 09/12/2019 12:18 PM LAND TITLE EXAMINER CNFL Comment: ----REFERENCE VALUE---- Desirable: <130 Above Desirable: 130-159 Borderline high: 160-189 High: 190-219 Very high: > or =220 Blood (Blood, Venous) 09/12/2019 11:24 AM LAND TITLE EXAMINER 09/12/2019 11:27 AM LAND TITLE EXAMINER Idalmis Noguera LAB BLOOD ADD-ON [facility] [address] [place] [phone], [facility] CNFL [facility] in [address] [address] from Last 3 Months or Most Recently Relevant to Health Maintenance Administered Medications Care Teams Social Security Assessor Relationship Specialty Start Date End Date Sola Kwan APRN, C.N.P., D.N.P. [phone] [place] [phone] PCP - General Family Medicine 05/24/22
--- OUTSIDE RECORDS SUMMARY | 2024-03-13 09:05 | XMS_ITS ---
Author Organization [facility] Address [address] [place] [address] Care Team Providers Care Social Security Assessor Name Role Phone Unavailable Unavailable Unavailable Surgery Details Not on file Complications Check Surgery Details section. Procedure Estimated Blood Loss Check Surgery Details section. Procedure Findings Check Surgery Details section. Procedure Specimens Taken Check Surgery Details section.
--- OUTSIDE RECORDS SUMMARY | 2024-03-13 09:05 | XMS_ITS | Clinical Summary ---
Author Organization [facility] Address [address] [place] [address] Care Team Providers Care Maintenance Of Way Foreman Name Role Phone Sola Kwan APRN, C.N.P., D.N.P. Primary Ca re Provider Source Comments Patient records contain information from all sites at [facility]. For routine questions regarding patient records, call [phone] during business hours, M-F 8:00 AM - 5:00 PM Central Time. Record requests for emergency care only can be directed to [phone] at any time.[facility] Allergies No known active allergies Medications Medication [...] from 07/18/2023:Stage IA(pT1a, pN0, cM0, G3, ER+, MS-, HER2+) - Signed by Candida Meyer M.B., B.Ch. on 08/04/2023 Intraductal Carcinoma In Situ Of Right Breast Obesity Body Mass Index 30-39.9 Adult 04/26/2022 Bite Dog Hand Open Sequela Right 09/19/2021 Exposure Rabies 09/19/2021 Screening Cancer Colon 06/07/2021 Overview: Added automatically from request for surgery [id number] Apnea Sleep Obstructive 06/07/2021 Impaired Fasting Glucose 09/12/2019 Gastroesophageal Reflux Disease NOS 05/26/2016 Epicondylitis Lateral Right 05/26/2016 Cervical Dysplasia Personal History 01/27/2015 Lesion Severe Squamous Intra epithelial Cervix (Severe Dysplasia) 12/09/2013 Pain Back Lumbar Pain Low Back Unspecified Encounters Date Type Department Care Team Description 03/04/2024 Clinical Communication Division of Endocrinology in [place], [place] [address] [place] [phone] Monet Gr P.A.-C. Rx Prior Authorization (Wegovy or Qsymia?) 03/04/2024 Clinical Communication Division of Endocrinology in [place], [place] [address] [place] [address] Bri Whitfield, HANG, C.N.P. Appt Request 03/04/2024 Orders Only Division of Endocrinology in [place], [place] [address] [place] [phone] Bri Whitfield APRN, CDarenN.P. Obesity Body Mass Index 30-39.9 Adult (Primary Dx) 03/04/2024 Refill Division of Endocrinology in [place], [place] [address] [place] [address] Monet Gr P.A.-C. Med Refill 03/04/2024 Refill Division of Endocrinology in [place], [place] [address] [place] [address] Monet Gr P.A.-C. Med Refill 01/26/2024 Clinical Communication Department of Family Medicine, [facility], in [address] [phone] Sola Kwan APRN C.N.P., D.N.P. Earache 01/05/2024 Clinical Communication Division of Plastic Surgery in [place], [place] [address] [place] [address] Moe Leger M.D. 12/27/2023 Orders Only Division of Plastic Surgery in [place], [place] [address] [place] [phone] Yelena Covington APRN, C.N.P., D.N.P. Absence Of Breast Acquired Bilateral (Primary Dx) from Last 3 Months Immunizations Name Administration [...] often do you attend chur ch or tenriism services? Never 07/27/2020 Do you belong to [...] Answer Date Recorded PHQ-2 Score 0 09/29/2022 [facility] Occupat ional Health - Occupational [...] your living situation today? I have a [facility] place to live 05/11/2023 Education [...] 169 cm (5' 6.54) 08/25/2023 10:03 AM OCEAN EXPORT AGENT Body Mass Index 39.71 08/25/2023 10:03 AM OCEAN EXPORT AGENT Plan of Treatment Upcoming Encounters Date Type Department Care Team (Late st Contact Info) Description 04/16/2024 10:00 AM CDT Comprehensive Visit Department of Family Medicine, [facility], in [address] [phone] Sola Kwan APRN, C.N.P., D.N.P. [address] [place] [address] [place] [phone] Scheduled Procedures Name Priority Associated Diagnoses Date/Ti me REMOVAL TISSUE IT ADMINISTRATIVE ASSISTANT BREAST Absence Of Breast Acquired Bilateral INJECTION FAT Absence Of Breast Acquired Bilateral RECONSTRUCTION BREAST WITH IMPLANT Absence Of Breast Acquired Bilateral Health Maintenance Due Date Last Done Comments CT Colonography 1969 Cologuard 1969 FIT 1969 HIV Screening 1969 Hepatitis C Screening 1969 Pneumococcal vaccine (0-64 years) (1 of 2 - PCV) 1975 Hepatitis B Vaccines (2 of 2 - CpG (Heplisav) 2-dose series) 10/27/2022 09/29/2022 COVID-19 Vaccine ( season) 2023 06/14/2022, 02/12/2021, 01/15/2021 Depression Screening (Annual PHQ-2) 08/28/2023 Influenza Vaccine (#1) 2024 , 06/05/2015, 06/05/2015 Fasting Glucose for Diabetes Screening 07/21/2024 07/21/2023, [...] this topic Medical Devices Implanted Type Area Frontload Driver Device Identifier Shelf Expiration Date Model / Serial / Lot Exp Brst [place] 550 - [id number] - [id number] Implanted:Qt y: 1 on 07/18/2023 by Moe Leger M.D. at [facility] Breast Implant Right: Breast [employer] [id number] 11/24/2026 SCPX-135 / [id number] / [id number] Exp Brst Nacl Rnd 550 - [id number] - [id number] Implanted:Qt y: 1 on 07/18/2023 by Moe Leger M.D. at [facility] Breast Implant Left: Breast [employer] [id number] 06/11/2027 SCPX-135 / [id number] / [id number] Clp Hrzn Ti 6 Clp Dell - [id number] Implanted:Qt y: 1 on 07/18/2023 by Veronica Joy M.D. at [facility] Hardware e.g. pins/screws /rods [employer] [id number] 01/11/2028 [id number] / / [id number] Clp Hrzn Ti 6 Clp Dell - [id number] Implanted:Qt y: 1 on 07/18/2023 by Veronica Joy M.D. at [facility] Hardware e.g. pins/screws /rods [employer] [id number] 01/11/2028 [id number] / / [id number] Clp Hrzn Ti 24 Clp Dell - [id number] Implanted:Qt y: 1 on 07/18/2023 by Veronica Joy M.D. at [facility] Hardware e.g. pins/screws /rods [employer] [id number] 05/09/2028 [id number] / / [id number] Mrk Biop Tmr Q [facility] [id number] - [id number] Implanted:Qt y: 1 on 04/26/2023 at [facility] [employer] 10/25/2027 [id number] / / [id number] Mrk Biop Site - [id number] Implanted:Qt y: 1 on 05/10/2023 at [facility] [employer] 10/26/2026 TUMARK-E 13-S-VIS ION / / [id number] Mrk Biop Trm Brst Strtc 9ga - [id number] Implanted:Qt y: 1 on 05/10/2023 at [facility] [employer] 01/21/2024 TRIMARK- EVIVA-13 / / [id number] Mrk Biop Trm Brst Strtc 9ga - [id number] Implanted:Qt y: 1 on 05/10/2023 at [facility] [employer] 01/21/2024 TRIMARK- EVIVA-13 / / [id number] Procedures Procedure Name Priority Date/Time Associated Diagnosis Comments GLUCOSE, FASTING, S/P Routine 07/21/2023 9:49 AM OCEAN EXPORT AGENT Screening Examination Diabetes Mellitus MR BREAST BILATERAL WITHOUT AND WITH IV CONTRAST RAD - Routine (most inpatients and all outpatients) 05/02/2023 12:26 PM CDT Abnormal Mammogram Microcalcification Cancer Breast Family History Cancer Breast Ductal In Situ Right COLONOSCOPY 04/19/2023 8:36 AM CDT LIPID PANEL, S Routine 09/12/2019 11:24 AM OCEAN EXPORT AGENT Screening Lipid from Last 3 Months or Most Recently Relevant to Health Maintenance Results * (ABNORMAL) Glucose, Fasting (07/21/2023 9:49 AM OCEAN EXPORT AGENT) Glucose, P 108(H) 70 - 100 mg/dL 07/21/2023 10:06 AM OCEAN EXPORT AGENT CNFL Last Intake 10 hr 07/21/2023 9:50 AM OCEAN EXPORT AGENT CNFL Blood (Blood, Venous) 07/21/2023 9:49 AM OCEAN EXPORT AGENT 07/21/2023 9:50 AM OCEAN EXPORT AGENT Sola Kwan APRN, C.N.P., D.N.P. LAB BLOOD NON ADD-ON [facility] [address] [place] [address], [facility] CNFL [facility] in [address] [address] * (ABNORMAL) MR Breast Bilateral without and [...] lateral aspect of the right breast (series [id number] image 69 measuring 1.3 x 0.8 cm. These regions generally display persistent or plateau kinetic curve. RIGHT AXILLA: ??There are multiple prominent right axillary lymph nodes, none of which meet lymphadenopathy by size criteria. LEFT BREAST: In the medial left breast there is a 5.1 x 8.4 cm T2 hyperintense cystic lesion with subtle area of enhancement along the inferior margin (series [id number] image 365). No other suspicious enhancing lesion [...] the lateral aspect of the rightbreast (series [id number] image 69 measuring 1.3 x 0.8 cm. These regions generally display persistent orplateau kinetic curve. RIGHT AXILLA: There are multiple prominent right axillary lymph nodes,none of which meet lymphadenopathy by size criteria. LEFT BREAST: In the medial left breast there is a 5.1 x 8.4 cm E6qvswtketblec cystic lesion with subtle area of enhancement along the inferior margin (series 30301 ). No other suspicious enhancing lesion LEFT [...] ASSESSMENT: BI-RADS: 6: Known Biopsy-Proven Malignancy. Marilee Chuckie Walker P.A.-C. MR I PROCEDURES * COLONOSCOPY (04/19/2023 8:36 AM CDT) Narrative Procedure Note Deonte Bryan M.D. - 04/19/2023 8:36 AM CDT [facility] Patient Name: Adela Slade Procedure Date: [...] the bowel preparation was evaluatedusing the BBPS (Manti Bowel Preparation Scale) with scores of: Right [...] DERABLES * Lipid Panel (09/12/2019 11:24 AM OCEAN EXPORT AGENT) Cholesterol, Total 194 mg/dL 2019 12:18 PM OCEAN EXPORT AGENT CNFL Comment: ----REFERENCE VALUE---- Desirable: < 200 Borderline high: 200 - 239 High: > or = 240 Triglycerides 95 mg/dL 09/12/2019 12:18 PM OCEAN EXPORT AGENT CNFL Comment: ----REFERENCE VALUE---- Normal: <150 Borderline high: 150-199 High: 200-499 Very high: > or =500 Cholesterol, HDL, S 54 >=50 mg/dL 09/12/2019 12:18 PM OCEAN EXPORT AGENT CNFL Calculated LDL 121 mg/dL 09/12/2019 12:18 PM OCEAN EXPORT AGENT CNFL Comment: ----REFERENCE VALUE---- Desirable: <100 Above Desirable: 100-129 Borderline high: 130-159 High: 160-189 Very high: > or =190 Cholesterol, Non-HDL, Calculated 140 mg/dL 09/12/2019 12:18 PM OCEAN EXPORT AGENT CNFL Comment: ----REFERENCE VALUE---- Desirable: <130 Above Desirable: 130-159 Borderline high: 160-189 High: 190-219 Very high: > or =220 Blood (Blood, Venous) 09/12/2019 11:24 AM OCEAN EXPORT AGENT 09/12/2019 11:27 AM OCEAN EXPORT AGENT Idalmis Noguera LAB BLOOD ADD-ON [facility] [address] [place] [address], [place] CNFL [facility] in [address] [address] from Last 3 Months or Most Recently Relevant to Health Maintenance Care Teams Maintenance Of Way Foreman Relationship Specialty Start Date End Date Sola Kwan APRN, C.N.P., D.N.P. [address] [place] [phone] PCP - General Family Medicine 05/24/22
--- OUTSIDE RECORDS SUMMARY | 2024-03-13 09:05 | XMS_ITS | Encounter Summary ---
Author Organization [facility] Address [address] [place] [address] Care Team Providers Care Pneumatic Tube Repairer Name Role Phone Sola Kwan APRN, C.N.P., D.N.P. Primary Ca re Provider Reason for Visit * Reason Comments Med Refill Encounter Details Date Type Department Care Team (Late st Contact Info) Description 03/04/2024 Refill Division of Endocrinology in [place], [place] [address] [place] [phone] Monet Gr, PDarenADaren-C. [address] [place] [phone] Med Refill Social History Tobacco Use Types Packs/Day Years [...] often do you attend chur ch or druze services? Never 07/27/2020 Do you belong to any clubs o r organizations such as bahai groups, unions, fraternal or athletic groups, or [...] Answer Date Recorded PHQ-2 Score 0 09/29/2022 [facility] Questionnaire Answer Date [...] your living situation today? I have a [facility] place to live 05/11/2023 Education Answer [...] CDT Comprehensive Visit Department of Family Medicine, [facility], in [address] [phone] Sola Kwan APRN, C.N.P., D.N.P. [address] [place] [phone] Scheduled Procedures Name Priority Associated Diagnoses Date/Ti me REMOVAL TISSUE CLAIMS ADMINISTRATOR BREAST Absence Of Breast Acquired Bilateral INJECTION FAT Absence Of Breast Acquired Bilateral RECONSTRUCTION BREAST WITH IMPLANT Absence Of Breast Acquired Bilateral documented as of this encounter Visit Diagnoses Not on filedocumented in this encounter Additional Health Concerns Assessment Noted Time PHQ-9 Depression Total Score: 0 10/30/19 14 3:19 PM MECHANICAL MAINTENANCE documented as of this encounter Care Teams Pneumatic Tube Repairer Relationship Specialty Start Date End Date Sola Kwan APRN, C.N.P., D.N.P. [address] [phone] PCP - General Family Medicine 05/24/22 documented as of this encounter
--- OUTSIDE RECORDS SUMMARY | 2024-03-13 09:05 | XMS_ITS | Encounter Summary ---
Author Organization [facility] Address [address] [place] [address] Care Team Providers Care Black Top Roller Name Role Phone Sola Kwan APRN, C.N.P., D.N.P. Primary Ca re Provider Reason for Visit * Reason Comments Med Refill Encounter Details Date Type Department Care Team (Late st Contact Info) Description 03/04/2024 Refill Division of Endocrinology in [place], [place] [address] [place] [phone] Monet Gr, PDarenADaren-C. [address] [place] [phone] Med Refill Social History Tobacco Use Types [...] often do you attend chur ch or taoist services? Never 07/27/2020 Do you belong to any clubs o r organizations such as yazidism groups, unions, fraternal or athletic groups, or [...] Answer Date Recorded PHQ-2 Score 0 09/29/2022 [facility] Questionnaire Answer Date Recorded [...] your living situation today? I have a [facility] place to live 05/11/2023 Education Answer [...] CDT Comprehensive Visit Department of Family Medicine, [facility], in [address] [phone] Sola Kwan APRN, C.N.P., D.N.P. [address] [place] [phone] Scheduled Procedures Name Priority Associated Diagnoses Date/Ti me REMOVAL TISSUE CAMPUS AMBASSADOR BREAST Absence Of Breast Acquired Bilateral INJECTION FAT Absence Of Breast Acquired Bilateral RECONSTRUCTION BREAST WITH IMPLANT Absence Of Breast Acquired Bilateral documented as of this encounter Visit Diagnoses Diagnosis Obesity Body Mass Index 30-39.9 Adult documented in this encounter Additional Health Concerns Assessment Noted Time PHQ-9 Depression Total Score: 0 10/30/19 14 3:19 PM BRICK UNLOADER TENDER documented as of this encounter Care Teams Black Top Roller Relationship Specialty Start Date End Date Sola Kwan APRN, C.N.P., D.N.P. [address] [phone] PCP - General Family Medicine 05/24/22 documented as of this encounter
--- OUTSIDE RECORDS SUMMARY | 2024-03-13 09:05 | XMS_ITS ---
Author Organization [facility] Address [address] [place] [address] Care Team Providers Care Siphoner Name Role Phone Sola Kwan APRN, C.N.P., D.N.P. Primary Ca re Provider Active Problems Problem Noted Date Diagnosed Date Absence Of Breast Acquired Bilateral 12/27/2023 Malignant Neoplasm Of Unspec ified Site Of Laterality Unknown Female Breast 08/04/2023 Cancer Staging:Pathologic stage from 07/18/2023:Stage IA(pT1a, pN0, cM0, G3, ER+, IN-, HER2+) - Signed by Candida Meyer M.B., B.Ch. on 08/04/2023 Intraductal Carcinoma In Situ Of Right Breast Obesity Body Mass Index 30-39.9 Adult 04/26/2022 Bite Dog Hand Open Sequela Right 09/19/2021 Exposure Rabies 09/19/2021 Screening Cancer Colon 06/07/2021 Overview: Added automatically from request for surgery [id number] Apnea Sleep Obstructive 06/07/2021 Impaired Fasting Glucose 09/12/2019 Gastroesophageal Reflux Disease NOS 05/26/2016 Epicondylitis Lateral Right 05/26/2016 Cervical Dysplasia Personal History 01/27/2015 Lesion Severe Squamous Intra epithelial Cervix (Severe Dysplasia) 12/09/2013 Pain Back Lumbar Pain Low Back Unspecified Current Oncology Plans No current plan information found. Past Plans Radiation Treatments * No radiation treatments are documented for this patient in [facility]. Treatments may have been administered in another system. Lifetime Dose Tracking * Chemical Lifetime Dose Automatic Entry Manual Entr y Radiation 75.63 mGy 75.63 mGy 0 mGy Fluoro Time 1.8 minutes 1.8 minutes 0 minutes
--- OUTSIDE RECORDS SUMMARY | 2024-03-13 09:05 | XMS_ITS | Encounter Summary ---
Author Organization [facility] Address [address] [place] [address] Care Team Providers Care Microbiology Laboratory Manager Name Role Phone Sola Kwan APRN, C.N.P., D.N.P. Primary Ca re Provider Reason for Visit * Reason Onset Date Comments Earache 01/26/2024 Encounter Details Date Type Department Care Team (Late st Contact Info) Description 01/26/2024 Clinical Communication Department of Family Medicine, [facility], in [address] [phone] Sola wKan APRN, C.N.P., D.N.P. [address] [place] [phone] Earache Social History Tobacco Use Types Packs/Day Years [...] often do you attend chur ch or scientologist services? Never 07/27/2020 Do you belong to any clubs o r organizations such as hinduism groups, unions, fraternal or athletic groups, or [...] Answer Date Recorded PHQ-2 Score 0 09/29/2022 [facility] of Occupat ional Health - [...] your living situation today? I have a [facility] place to live 05/11/2023 Education [...] encounter Miscellaneous Notes * Telephone Encounter - Sola Kwan APRN, C.N.P., D.N.P. - 01/26/2024 12:40 PM CDT I do not have time today to squeeze her in, I recommend local urgent care evaluation. documented in this encounter Plan of Treatment Upcoming Encounters Date Type Department Care Team (Late st Contact Info) Description 04/16/2024 10:00 AM CDT Comprehensive Visit Department of Family Medicine, [facility], in [address] [phone] Sola Kwan APRN, C.NAlec., D.N.P. [address] [place] [phone] Scheduled Procedures Name Priority Associated Diagnoses Date/Ti me REMOVAL TISSUE WASH HOUSE WORKER BREAST Absence Of Breast Acquired Bilateral INJECTION FAT Absence Of Breast Acquired Bilateral RECONSTRUCTION BREAST WITH IMPLANT Absence Of Breast Acquired Bilateral documented as of this encounter Visit Diagnoses Not on filedocumented in this encounter Additional Health Concerns Assessment Noted Time PHQ-9 Depression Total Score: 0 10/30/19 14 3:19 PM DIRECTOR LIFE SCIENCES documented as of this encounter Care Teams Microbiology Laboratory Manager Relationship Specialty Start Date End Date Sola Kwan APRN, C.N.P., D.N.P. [address] [place] [phone] PCP - General Family Medicine 05/24/22 documented as of this encounter
--- OUTSIDE RECORDS SUMMARY | 2024-03-13 09:05 | XMS_ITS | Clinical Summary ---
Author Organization [facility] Address [address] [place] [address] Care Team Providers Care Divorce Attorney Name Role Phone No Ref-Primary, Physician Primary [...] Comments Blood Pressure 118/78 09/29/2018 10:31 AM HORTICULTURE TEACHER Pulse 64 09/29/2018 10:31 AM HORTICULTURE TEACHER Temperature 36.7 ??C (98 ??F) 09/29/2018 10:31 AM HORTICULTURE TEACHER Respiratory Rate 16 09/29/2018 10:31 AM HORTICULTURE TEACHER Oxygen Saturation 98% 09/29/2018 10:31 AM HORTICULTURE TEACHER Inhaled Oxygen Concentration - - Weight 98.4 kg (217 lb) 10/18/2005 1:30 PM HORTICULTURE TEACHER Height - - Body Mass Index - - Plan of Treatment Not on file Care Teams Divorce Attorney Relationship Specialty Start Date End Date No Ref-Primary, Physician PCP - General 09/29/18
--- OUTSIDE RECORDS SUMMARY | 2024-03-13 09:05 | XMS_ITS | Encounter Summary ---
Author Organization [facility] Address [address] [place] [address] Care Team Providers Care Brush Operator Name Role Phone Sola Kwan APRN, C.N.P., D.N.P. Primary Ca re Provider Reason for Visit * Reason Onset Date Comments Rx Prior Authorization 03/04/2024 Wegovy or Qsymia? Encounter Details Date Type Department Care Team (Latest Contact Info) Description 03/04/2024 Clinical Communication Division of Endocrinology in [place], [place] [address] [place] [phone] Monet Gr, PEddie. [address] [place] [phone] Rx Prior Authorization (Wegovy or Qsymia?) Social History Tobacco Use Types Packs/Day Years [...] 07/27/2020 How often do you attend chur or taoism services? Never 07/27/2020 Do you belong to [...] Answer Date Recorded PHQ-2 Score 0 09/29/2022 [facility] - Occupational Stress Questionnaire Answer Date [...] your living situation today? I have a [facility] place to live 05/11/2023 Education Answer Date [...] CDT Comprehensive Visit Department of Family Medicine, [facility], in [address] [phone] Sola Kwan APRN, C.N.P., D.N.P. [address] [place] [phone] Scheduled Procedures Name Priority Associated Diagnoses Date/Ti me REMOVAL TISSUE ROLLER CLEANER BREAST Absence Of Breast Acquired Bilateral INJECTION FAT Absence Of Breast Acquired Bilateral RECONSTRUCTION BREAST WITH IMPLANT Absence Of Breast Acquired Bilateral documented as of this encounter Visit Diagnoses Not on filedocumented in this encounter Additional Health Concerns Assessment Noted Time PHQ-9 Depression Total Score: 0 10/30/19 14 3:19 PM TOP PRECIPITATOR OPERATOR HELPER documented as of this encounter Care Teams Brush Operator Relationship Specialty Start Date End Date Sola Kwan APRN, C.N.P., D.N.P. [address] [place] [phone] PCP - General Family Medicine 05/24/22 documented as of this encounter
--- OUTSIDE RECORDS SUMMARY | 2024-03-13 09:05 | XMS_ITS | Encounter Summary ---
Author Organization [facility] Address [address] [place] [address] Care Team Providers Care Polishing Machine Operator Helper Name Role Phone Sola Kwan APRN, C.N.P., D.N.P. Primary Ca re Provider Encounter Details Date Type Department Care Team (Late st Contact Info) Description 01/05/2024 Clinical Communication Division of Plastic Surgery in [place], [place] [address] [place] [phone] Moe Leger M.D. [address] [place] [phone] Social History Tobacco Use Types Packs/Day Years [...] often do you attend chur ch or hinduism services? Never 07/27/2020 Do you belong to [...] Answer Date Recorded PHQ-2 Score 0 09/29/2022 [facility] of Occupat ional Health - [...] your living situation today? I have a [facility] place to live 05/11/2023 Education Answer [...] CDT Comprehensive Visit Department of Family Medicine, [facility], in [address] [phone] Sola Kwan APRN, C.N.P., D.N.P. [address] [place] [phone] Scheduled Procedures Name Priority Associated Diagnoses Date/Ti me REMOVAL TISSUE LIGHT BULB TESTER BREAST Absence Of Breast Acquired Bilateral INJECTION FAT Absence Of Breast Acquired Bilateral RECONSTRUCTION BREAST WITH IMPLANT Absence Of Breast Acquired Bilateral documented as of this encounter Visit Diagnoses Not on filedocumented in this encounter Additional Health Concerns Assessment Noted Time PHQ-9 Depression Total Score: 0 10/30/19 14 3:19 PM CHIEF LOCK TENDER OPERATOR documented as of this encounter Care Teams Polishing Machine Operator Helper Relationship Specialty Start Date End Date Sola Kwan APRN, C.N.P., D.N.P. [address] [phone] PCP - General Family Medicine 05/24/22 documented as of this encounter
--- OUTSIDE RECORDS SUMMARY | 2024-03-13 09:05 | XMS_ITS | Encounter Summary ---
Author Organization [facility] Address [address] [place] [id number] Care Team Providers Care Physician Office Clin Asst Name Role Phone Sola Kwan APRN C.N.PDaren, D.N.P. Primary Ca re Provider Reason for Referral * Outpatient (Routine) - Authorized Specialty Diagnoses / Procedures Referred By Gal t Referred To Contact Family Medicine Perry Lundberg P.A.-C., P.A. [address] [place] [address] [facility] Region Referral ID Status Reason Start Date Expiration Date V isits Requested Visits Authorized [id number] Authorized 12/04/2023 06/04/2025 1 1 Scheduling Instructions Follow-up right ear. Follow-up express care. Encounter Details Date Type Department Care Team (Late st Contact Info) Description 12/04/2023 11:40 AM CDT Office Visit Express Care in [place], [place] [address] [place] [address] Perry Lundberg P.A.-C., P.A. [address] [place] [phone] Acute Suppurative Otitis Media Without Spontaneous [...] any clubs o r organizations such as hoahaoism groups, unions, fraternal or athletic groups, or [...] Answer Date Recorded PHQ-2 Score 0 09/29/2022 [facility] - Occupational Stress Questionnaire Answer [...] living situation today? I have a [facility] place to live 05/11/2023 Education Answer [...] as of this encounter Progress Notes * Hampl, Perry, P.A.-C., Larissa. - 12/04/2023 11:40 AM CDT SUBJECTIVE Jennifer [...] Tech: RED Referring MD: ALEXY WHELAN Site: [facility] Reading Location: Mobile-OP Patient Location: [...] . This study was interpreted by an [facility] accredited facility. CC: [facility] (med records) [facility]. Final No images are attached to the [...] CDT Comprehensive Visit Department of Family Medicine, [facility], in [address] [phone] Sola Kwan APRN, C.N.P., D.N.P. [address] [place] [phone] Scheduled Procedures Name Priority Associated Diagnoses Date/Ti me REMOVAL TISSUE SOURCING ENGINEER BREAST Absence Of Breast Acquired Bilateral [...] Total Score: 0 10/30/19 14 3:19 PM PROFESSOR OF BUSINESS documented as of this encounter Care Teams Physician Office Clin Asst Relationship Specialty Start Date End Date Sola Kwan APRN, C.N.P., D.N.P. [id number] [phone] PCP - General Family Medicine 05/24/22 documented as of this encounter
--- OUTSIDE RECORDS SUMMARY | 2024-03-13 09:05 | XMS_ITS | Encounter Summary ---
Author Organization [facility] Address [address] [place] [address] Care Team Providers Care Online Marketing Coordinator Name Role Phone Sola Kwan APRN, C.N.P., D.N.P. Primary Ca re Provider Reason for Referral * Outpatient (Routine) - Authorized Specialty Diagnoses / Procedures Referred By Contac t Referred To Contact Plastic Surgery Yelena Covington APRN, C.N.P., D.N.P. [address] [place] [phone] [facility] Referral ID Status Reason Start Date Expiration Date V isits Requested Visits Authorized [id number] Authorized 12/27/2023 06/27/2025 [address] Leger on 02/08 at 3pm, override * Outpatient (Routine) - Authorized Specialty Diagnoses / Procedures Referred By Contac t Referred To Contact Plastic Surgery Diagnoses na Yelena Covington APRN, C.N.P., D.N.P. [address] [place] [phone] [facility] Referral ID Status Reason Start Date Expiration Date V isits Requested Visits Authorized [id number] Authorized 12/27/2023 06/27/2025 1 1 Scheduling Instructions With Yelean Dodge Encounter Details Date Type Department Care Team (Late st Contact Info) Description 12/27/2023 Orders Only Division of Plastic Surgery in [place], [place] [address] [place] [phone] Yelena Covington APRN, C.N.Mio, D.N.P. [address] [place] [address] Absence Of Breast Acquired Bilateral (Primary Dx) Social History Tobacco Use Types [...] any clubs o r organizations such as judaism groups, unions, fraternal or athletic groups, or [...] 0 09/29/2022 [facility] - [...] CDT Comprehensive Visit Department of Family Medicine, [facility], in [address] [phone] Sola Kwan APRN, C.N.P., D.N.P. [address] [place] [phone] Scheduled Orders Name Type Priority Associated Diagnoses Orde r Schedule Basic Metabolic Panel Lab Routine Absence Of Breast Acquired Bilateral Expected: 02/09/2024, Expires: 12/26/2024 CBC with Differential, Blood Lab Routine Absence Of Breast Acquired Bilateral Expected: 02/09/2024, Expires: 03/28/2025 Scheduled Procedures Name Priority Associated Diagnoses Date/Ti me REMOVAL TISSUE TONGUE LINING STITCHER BREAST Absence Of Breast Acquired Bilateral INJECTION FAT Absence Of Breast Acquired Bilateral RECONSTRUCTION BREAST WITH IMPLANT Absence Of Breast Acquired Bilateral Scheduled Referrals Name Type Priority Associated Diagnoses Orde r Schedule Plastic Surgery Post Op (clinic) Outpatient Referral Routine Expected: 03/01/2024 (Approximate), Expires: 03/28/2025 Plastic Surgery Pre Op (clinic) Outpatient Referral Routine Expected: 02/09/2024, Expires: 03/28/2025 documented as of this encounter Visit Diagnoses Diagnosis Absence Of Breast Acquired Bilateral- Primary documented in this encounter Additional Health Concerns Assessment Noted Time PHQ-9 Depression Total Score: 0 10/30/19 14 3:19 PM TECHNICAL SALES SPECIALIST documented as of this encounter Care Teams Online Marketing Coordinator Relationship Specialty Start Date End Date Sola Kwan APRN, C.N.P., D.N.P. [address] [phone] PCP - General Family Medicine 05/24/22 documented as of this encounter
--- OUTSIDE RECORDS SUMMARY | 2024-03-13 09:05 | XMS_ITS | Encounter Summary ---
Author Organization [facility] Address [address] [place] [address] Care Team Providers Care Compression Molding Machine Tender Name Role Phone Sola Kwan APRN, C.N.P., D.N.P. Primary Ca re Provider Reason for Visit * Reason Onset Date Comments Appt Request 03/04/2024 Encounter Details Date Type Department Care Team (Late st Contact Info) Description 03/04/2024 Clinical Communication Division of Endocrinology in [place], [place] [address] [place] [phone] Bri Whitfield APRN, C.N.P. [address] [place] [phone] Appt Request Social History Tobacco Use Types Packs/Day Years [...] often do you attend chur ch or anabaptist services? Never 07/27/2020 Do you belong to [...] Answer Date Recorded PHQ-2 Score 0 09/29/2022 [facility] Answer Date [...] your living situation today? I have a [facility] place to live 05/11/2023 Education Answer [...] CDT Comprehensive Visit Department of Family Medicine, [facility], in [address] [phone] Sola Kwan APRN, C.N.P., D.N.P. [address] [place] [phone] Scheduled Procedures Name Priority Associated Diagnoses Date/Ti me REMOVAL TISSUE EGG SETTER BREAST Absence Of Breast Acquired Bilateral INJECTION FAT Absence Of Breast Acquired Bilateral RECONSTRUCTION BREAST WITH IMPLANT Absence Of Breast Acquired Bilateral documented as of this encounter Visit Diagnoses Not on filedocumented in this encounter Additional Health Concerns Assessment Noted Time PHQ-9 Depression Total Score: 0 10/30/19 14 3:19 PM WHEEL POLISHER documented as of this encounter Care Teams Compression Molding Machine Tender Relationship Specialty Start Date End Date Sola Kwan APRN, C.N.P., D.N.P. [address] [phone] PCP - General Family Medicine 05/24/22 documented as of this encounter
--- OUTSIDE RECORDS SUMMARY | 2024-03-13 09:06 | XMS_ITS | Continuity of Care Document ---
Author Organization [facility] Address [address] [place] [address] Phone Care Team Providers Care Call Center Professional Name Role Phone Unavailable Unavailable Unavailable Procedures Procedure Date Office consultation, moderate 6 X-ray exam of neck spine, 4+ views Jan- Advance Directives Directive Yes / No Effective Date File Name No Information Encounters Encounter Description Practice Location Reason(s) For Visit Diagnoses Date Provider Providers Copied on Encounter [facility], [address] [place] [address], [facility], tel:[phone] [employer] No Information 0 8 No Information Office consultation, moderate [facility], [address] [place] [address], [facility], tel:[phone] [employer] No Information 6 Mehbod Amir. [facility], [address] [address], [place], [place], [id number], [place]. tel:[phone] Referring Provider: Teena Wilson, [facility] [address], [place], [address]. tel:[phone] Family History Family Member Type Diagnosis Age [...]
--- OUTSIDE RECORDS SUMMARY | 2024-03-13 09:06 | XMS_ITS | Referral Summary ---
Author Organization [facility] Address [address] [place] [address] Care Team Providers Care Welt Treater Name Role Phone No Ref-Primary, Physician Primary [...] Comments Blood Pressure 118/78 09/29/2018 10:31 AM ASSURANCE AUDITOR Pulse 64 09/29/2018 10:31 AM ASSURANCE AUDITOR Temperature 36.7 ??C (98 ??F) 09/29/2018 10:31 AM ASSURANCE AUDITOR Respiratory Rate 16 09/29/2018 10:31 AM ASSURANCE AUDITOR Oxygen Saturation 98% 09/29/2018 10:31 AM ASSURANCE AUDITOR Inhaled Oxygen Concentration - - Weight 98.4 kg (217 lb) 10/18/2005 1:30 PM ASSURANCE AUDITOR Height - - Body Mass Index - - Plan of Treatment Not on file Care Teams Welt Treater Relationship Specialty Start Date End Date No Ref-Primary, Physician PCP - General 09/29/18
[2024-03-13] MEDS: PERFLUTREN LIPID MICROSPHERES 2 ML VIAL IV (09:50)
--- NOTE | 2024-03-13 10:05 | PC.NURSE ---
20G IV started in right AC. Definity given per tractor technician. IV removed intact once test completed.
== END 2024-03-13 09:03 | disposition home or self-care (01) ==
LOC: RAD 09:03
PROVIDERS: PCP Nurse Practitioner Family; Visit Provider Internal Medicine Hematology & Oncology
DX: Z51.81 Encounter for therapeutic drug level monitoring (principal); Z79.899 Other long term (current) drug therapy
CPT/HCPCS: 93306; Q9957

== ENCOUNTER 2024-06-12 07:39 | Outpatient (CLI) | payer BC, SELFPAY ==
--- OUTSIDE RECORDS SUMMARY | 2024-06-12 07:42 | XMS_ITS ---
Author Organization [facility] Address [address] [place] [address] Care Team Providers Care Salesperson Women'S Hats Name Role Phone Sola Kwan APRN, C.N.P., D.N.P. Primary Ca re Provider Active Problems * This document contains information received from the source organization and may not represent a complete record from that organization. 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 on 08/04/2023 Overview (05/10/2024): Tamoxifen for 5 years, end in 2028. Intraductal Carcinoma In Situ Of Right Breast Obesity Body Mass Index 30-39.9 Adult 04/26/2022 Bite Dog Hand Open Sequela Right 09/19/2021 Screening Cancer Colon 06/07/2021 Overview (06/07/2021): Added automatically from request for surgery [id number] Apnea Sleep Obstructive 06/07/2021 Impaired Fasting Glucose 09/12/2019 Gastroesophageal Reflux Disease NOS 05/26/2016 Epicondylitis Lateral Right 05/26/2016 Cervical Dysplasia Personal History 01/27/2015 Lesion Severe Squamous Intra epithelial Cervix (Severe Dysplasia) 12/09/2013 Pain Back Lumbar Pain Low Back Unspecified Current Oncology Plans No current plan information found. Past Plans Radiation Treatments * No radiation treatments are documented for this patient in [facility]. Treatments may have been administered in another system. Lifetime Dose Tracking * Chemical Lifetime Dose Automatic Entry Manual Entr y Radiation 75.63 mGy 75.63 mGy 0 mGy Fluoro Time 1.8 minutes 1.8 minutes 0 minutes Resolved Problems Problem Noted Date Diagnosed Date Resolved Date Exposure Rabies 09/19/2021 05/10/2024
--- OUTSIDE RECORDS SUMMARY | 2024-06-12 07:42 | XMS_ITS ---
Author Organization [facility] Address [address] [place] [address] Care Team Providers Care Crime Lab Analyst Name Role Phone Unavailable Unavailable Unavailable Surgery Details Not on file Complications Check Surgery Details section. Procedure Estimated Blood Loss Check Surgery Details section. Procedure Findings Check Surgery Details section. Procedure Specimens Taken Check Surgery Details section.
--- OUTSIDE RECORDS SUMMARY | 2024-06-12 07:42 | XMS_ITS | Clinical Summary ---
Author Organization [facility] Address [address] [place] [address] Care Team Providers Care Recreation Officer Name Role Phone Sola Kwan APRN, C.N.P., D.N.P. Primary Ca re Provider Source Comments Patient records contain information from all sites at [facility]. For routine questions regarding patient records, call [phone] during business hours, M-F 8:00 AM - 5:00 PM Central Time. Record requests for emergency care only can be directed to [phone] at any time.[facility] Allergies No known active allergies Medications * This document contains information received from the source organization and may not represent a complete record from that organization. multivitamin capsule Take 1 tablet by mouth daily. 3 Active acetaminophen (TYLENOL) 500 mg tablet Take 2 tablets (1,000 mg total) by mouth every 6 (six) hours. 3 Active ibuprofen (ADVIL,MOTRIN) 200 mg tablet Take 3 tablets (600 mg total) by mouth every 8 (eight) hours as needed for pain. 3 Active ondansetron (ZOFRAN) 4 mg tablet 3 Active prochlorperazine (COMPAZINE) 10 mg tablet 3 Active semaglutide (WEGOVY) 0.5 mg/0.5 mL pen injector injection Inject 0.5 mg under the skin every 7 (seven) days. 2 mL 11 4 Active semaglutide (WEGOVY) 1 mg/0.5 mL pen injector injection Inject 1 mg under the skin every 7 (seven) days. 2 mL 11 4 Active semaglutide (Wegovy) 1.7 mg/0.75 mL pen injector injection Inject 1.7 mg under the skin every 7 (seven) days. 3 mL 11 4 Active semaglutide (Wegovy) 2.4 mg/0.75 mL pen injector injection Inject 2.4 mg under the skin every 7 (seven) days. 9 mL 4 Active fluticasone propionate (FLONASE) 50 mcg/actuation nasal spray Administer 2 sprays into each nostril daily. 16 g 4 Active omeprazole (PriLOSEC) [address] capsuleIndicatio ns:Gastroesophag eal Reflux Disease Without Esophagitis Take 1 capsule (40 mg total) by mouth daily. 90 capsule 3 4 Active tamoxifen (Nolvadex) 20 mg tablet Take 20 mg by mouth daily. 4 Active diphenhydrAMINE (BenadryL) 25 mg tablet Take 25-50 mg by mouth at bedtime as needed for sleep. Active ciprofloxacin-hy drocortisone (Cipro HC Otic) 0.2-1 % otic suspension 2 drops to affected nails twice daily for 7 days. 10 mL 4 Active ciclopirox (Penlac) 8 % external solution Apply 1 Application topically at bedtime. Apply over nail and surrounding skin. Apply daily over previous coat. After seven (7) days, may remove with alcohol and continue cycle. 6.6 mL 4 Active Active Problems Problem Noted Date Diagnosed Date Absence Of Breast Acquired Bilateral 12/27/2023 Malignant Neoplasm Of Unspec ified Site Of Laterality Unknown Female Breast 08/04/2023 Cancer Staging:Pathologic stage from 07/18/2023:Stage IA(pT1a, pN0, cM0, G3, ER+, OK-, HER2+) - Signed by Cadnida Meyer M.B., B.Ch. on 08/04/2023 Overview (05/10/2024): Tamoxifen for 5 years, end in 2028. Intraductal Carcinoma In Situ Of Right Breast Obesity Body Mass Index 30-39.9 Adult 04/26/2022 Bite Dog Hand Open Sequela Right 09/19/2021 Screening Cancer Colon 06/07/2021 Overview (06/07/2021): Added automatically from request for surgery [id number] Apnea Sleep Obstructive 06/07/2021 Impaired Fasting Glucose 09/12/2019 Gastroesophageal Reflux Disease NOS 05/26/2016 Epicondylitis Lateral Right 05/26/2016 Cervical Dysplasia Personal History 01/27/2015 Lesion Severe Squamous Intra epithelial Cervix (Severe Dysplasia) 12/09/2013 Pain Back Lumbar Pain Low Back Unspecified Resolved Problems Problem Noted Date Diagnosed Date Resolved Date Exposure Rabies 09/19/2021 05/10/2024 Encounters Date Type Department Care Team Description 05/10/2024 8:00 AM CDT Comprehensive Visit Department of Family Medicine, [facility], [address] [address] Sola Kwan APRN, C.N.P., D.N.P. Malignant Neoplasm Of Breast Female Right (HCC) (Primary Dx); General Medical Examination Adult; Infection Toenail Left; Gastroesophageal Reflux Disease Without Esophagitis; Obesity Body Mass Index 30-39.9 Adult; Apnea Sleep Obstructive; Human Immunodeficiency Virus Screening; Screening Test Laboratory; Impaired Fasting Glucose; Screening Lipid 05/02/2024 Refill Department of Family Medicine, [facility], [address] [address] Sola Kwan APRN, C.N.P., D.N.P. Med Refill 04/24/2024 Refill Division of Endocrinology in [place] [address] [place] [address] Monet Gr P.A.-C. Med Refill 03/13/2024 Refill Department of Family Medicine, [facility], [address] [address] Sola Kwan APRN, C.N.P., D.N.P. Med Refill from Last 3 Months Immunizations Name Administration [...] How often do you attend chur or latter-day services? Never 07/27/2020 Do you belong to any clubs o r organizations such as scientologist groups, unions, fraternal or athletic groups, or [...] PHQ-2 Answer Date Recorded PHQ-2 Score 0 05/10/2024 [facility] - [...] living? No 05/11/2023 Nutrition Answer Date Recorded On average, how many serving s of [...] your living situation today? I have a [facility] place to live 05/11/2023 Education Answer Date Recorded What is the highest level of school you have completed or the highest degree you have received? GED or equivalent Comments No Sex and Gender Information Value Date Recorded Sex Assigned at Female 05/16/2023 7:46 AM CDT Legal Sex Female 10:27 AM [employer]ICE [employer]ING Gender Identity Female 05/03/2022 12:49 PM CDT Sexual Orientation Straight 05/03/2022 12 :49 PM CDT Last Filed Vital Signs Vital Sign Reading Time Taken Comments Blood Pressure 119/86 05/10/2024 7:56 AM CDT Pulse 72 05/10/2024 7:56 AM CDT Temperature 36.6 ??C (97.9 ??F) 11/05/2023 9:35 AM CD T Respiratory Rate 16 05/10/2024 7:56 AM CDT Oxygen Saturation 100% 11/05/2023 10:05 AM CDT Inhaled Oxygen Concentration - - Weight 108 kg (238 lb 8.6 oz) 05/10/2024 7:56 AM CDT Height 169.5 cm (5' 6.73) 05/10/2024 7:56 AM CD T Body Mass Index 37.66 05/10/2024 7:56 AM CDT Plan of Treatment Upcoming Encounters Date Type Department Care Team (Latest Contact Info) Description 08/05/2024 3:30 PM [employer] Comprehensive Visit Department of Orthopedic Surgery in [address] [phone] Lacie Martin D.P.M. [address] [place] [phone] Discharge Disposition: Home or Self Care Scheduled Procedures Name Priority Associated Diagnoses Date/Ti me REMOVAL TISSUE RADIATOR CORE TESTER BREAST Absence Of Breast Acquired Bilateral INJECTION FAT Absence Of Breast Acquired Bilateral RECONSTRUCTION BREAST WITH IMPLANT Absence Of Breast Acquired Bilateral Health Maintenance Due Date Last Done Comments CT Colonography 1969 Cologuard 1969 FIT 1969 Pneumococcal vaccine (0-64 years) (1 of 2 - PCV) 1975 Hepatitis B Vaccines (2 of 2 - CpG (Heplisav) 2-dose series) 10/27/2022 09/29/2022 COVID-19 Vaccine ( - season) 2024 06/14/2022, 02/12/2021, 01/15/2021 Influenza Vaccine (#1) 2024 , 06/05/2015, 06/05/2015 Fasting Glucose for Diabetes Screening 05/10/2025 05/10/2024, 05/10/2024, 07/21/2023, Additional history exists Lipid (Cholesterol) Screening 05/10/2029 05/10/2024, 09/12/2019, 10/15/2012 DTaP,Tdap,and Td Vaccines (3 - Td or Tdap) 09/17/2031 09/17/2021, 06/19/2015, 09/28/2007 Colonoscopy 04/19/2033 04/19/2023 Colorectal Cancer Screening 04/19/2033 Zoster Vaccines Completed 09/29/2022, 06/14/2022 Mammogram Discontinued 05/02/2023, 03/29, 03/07/2023, Additional history exists Depression Screening (Annual PHQ-2) Completed 05/10/2024, 05/10/2024 HIV Screening Completed 05/10/2024 Hepatitis C Screening Completed 05/10/2024 HPV Vaccines Aged Out No longer eligi ble based on patient's age to complete this topic Medical Devices Implanted Type Area Uc Architect Device Identifier Shelf Expiration Date Model / Serial / Lot Exp Brst Nacl Valencia Ayala 550 - [id number] - [id number] Implanted:Qt y: 1 on 07/18/2023 by Moe Leger M.D. at [facility] Breast Implant Right: Breast [employer] [id number] 11/24/2026 SCPX-135 / [id number] / [id number] Brst Nacl Valencia Ayala 550 - [id number] - [id number] Implanted:Qt y: 1 on 07/18/2023 by Moe Leger M.D. at [facility] Breast Implant Left: Breast [employer] [id number] 06/11/2027 SCPX-135 / [id number] / [id number] Clp Hrzn Ti 6 Hazel Ayala Dell - [id number] Implanted:Qt y: 1 on 07/18/2023 by Veronica Joy M.D. at [facility] Hardware e.g. pins/screws /rods [employer] [id number] 01/11/2028 [id number] / / [id number] Clp Hrzn Ti 6 Clp Dell - [id number] Implanted:Qt y: 1 on 07/18/2023 by Veronica Joy M.D. at [facility] Hardware e.g. pins/screws /rods [employer] [id number] 01/11/2028 [id number] / / [id number] Clp Hrzn Ti 24 Clp Dell - [id number] Implanted:Qt y: 1 on 07/18/2023 by Veronica Joy M.D. at [facility] Hardware e.g. pins/screws /rods [employer] [id number] 05/09/2028 [id number] / / [id number] Mrk Biop Tmr Q Shp [id number] - [id number] Implanted:Qt y: 1 on 04/26/2023 at [facility] [employer] 10/25/2027 [id number] / / [id number] Mrk Biop Site - [id number] Implanted:Qt y: 1 on 05/10/2023 at [facility] [employer] 10/26/2026 TUMARK-E 13-S-VIS ION / / [id number] Mrk Biop Trm Brst Strtc 9ga - [id number] Implanted:Qt y: 1 on 05/10/2023 at [facility] [employer] 01/21/2024 TRIMARK- EVIVA- / / [id number] Mrk Biop Trm Brst Strtc 9ga - [id number] Implanted:Qt y: 1 on 05/10/2023 at [facility] [employer] 01/21/2024 TRIMARK- EVIVA- / [id number] Procedures Procedure Name Priority Date/Time Associated Diagnosis Comments HEMOGLOBIN A1C, B Routine 05/10/2024 8:33 AM CDT Impaired Fasting Glucose GLUCOSE, FASTING, S/P Routine 05/10/2024 8:33 AM CDT Impaired Fasting Glucose COMPREHENSIVE METABOLIC PANEL, S/P Routine 05/10/2024 8:33 AM CDT Gastroesophageal Reflux Disease Without Esophagitis LIPID PANEL, S Routine 05/10/2024 8:33 AM CDT Screening Lipid HIV-1/-2 AG AND AB SCREEN, PLASMA Routine 05/10/2024 8:33 AM CDT Human Immunodeficiency Virus Screening HCV AB SCRN W/REFLEX TO HCV PCR, S Routine 05/10/2024 8:33 AM CDT Screening Test Laboratory MR BREAST BILATERAL WITHOUT AND WITH IV CONTRAST RAD - Routine (most inpatients and all outpatients) 05/02/2023 12:26 PM CDT Abnormal Mammogram Microcalcification Cancer Breast Family History Cancer Breast Ductal In Situ Right COLONOSCOPY 04/19/2023 8:36 AM CDT from Last 3 Months or Most Recently Relevant to Health Maintenance Results * HIV-1/-2 Ag and Ab Screen, Plasma (05/10/2024 8:33 AM CDT) HIV Ag/Ab Screen, P Negative Negative 05/13/2024 12:06 PM CDT ECLR Comment: Negative result does not rule out HIV infection. If exposure to HIV infection occurred <14 days ago, contact the laboratory to request addition of HIV-1/HIV-2 RNA detection, Plasma (HIP12). HIV-1 p24 Ag Screen, P Negative Negative 05/13/2024 12:06 PM CDT ECLR Comment: Negative result does not rule out HIV infection. If exposure to HIV infection occurred <14 days ago, contact the laboratory to request addition of HIV-1/HIV-2 RNA detection, Plasma (HIP12). HIV-1 Ab Screen, P Negative Negative 05/13/2024 12:06 PM CDT ECLR Comment: Negative result does not rule out HIV infection. If exposure to HIV infection occurred <14 days ago, contact the laboratory to request addition of HIV-1/HIV-2 RNA detection, Plasma (HIP12). HIV-2 Ab Screen, P Negative Negative 05/13/2024 12:06 PM CDT ECLR Comment: Negative result does not rule out HIV infection. If exposure to HIV infection occurred <14 days ago, contact the laboratory to request addition of HIV-1/HIV-2 RNA detection, Plasma (HIP12). Blood (Blood, Venous) 05/10/2024 8:33 AM CDT 05/10/2024 3:03 PM CDT us Sola Kwan APRN C.N.P. , D.N.P. LAB MICROBIOLOGY - BLOOD ORDERABLES Final Result [facility] [address] [place] [address], [facility] ECLR [facility] in [place] [address] [place] [id number] * Lipid Panel (05/10/2024 8:33 AM CDT) Triglycerides 67 mg/dL 05/10/2024 9:03 AM CDT CNFL Comment: ----REFERENCE VALUE---- Normal: <150 mg/dL Borderline High: 150-199 mg/dL High: 200-499 mg/dL Very High: > or =500 mg/dL Cholesterol, Total 177 mg/dL 2023 9:03 AM CDT CNFL Comment: ----REFERENCE VALUE---- Desirable: < 200 mg/dL Borderline High: 200 - 239 mg/dL High: > or = 240 mg/dL Cholesterol, LDL, Calculated 112 mg/dL 05/10/2024 9:03 AM CDT CNFL Comment: ----REFERENCE VALUE---- Desirable: <100 mg/dL Above Desirable: 100-129 mg/dL Borderline High: 130-159 mg/dL High: 160-189 mg/dL Very High: >=190 mg/dL ----ADDITIONAL INFORMATION---- LDL cholesterol calculated using the Briones/NIH equation. Cholesterol, HDL 52 >=50 mg/dL 05/10/20 9:03 AM CDT CNFL Cholesterol, Non-HDL, Calculated 125 mg/dL 05/10/2024 9:03 AM CDT CNFL Comment: ----REFERENCE VALUE---- Desirable: <130 mg/dL Above Desirable: 130-159 mg/dL Borderline High: 160-189 mg/dL High: 190-219 mg/dL Very High: > or =220 mg/dL Fasting (8 HR or more) Yes 05/10/2024 8:33 AM CDT CNFL Blood (Blood, Venous) 05/10/2024 8:33 AM CDT 05/10/2024 8:39 AM CDT us Sola Kwan APRN C.N.P., D.N.P. LAB BLOOD A DD-ON Final Result Performing Organization Address City/[facility]/ZIP Co de Phone Number [facility] [address] [place] [phone], [facility] CNFL [facility] in [address] [address] * HCV Ab Scrn w/Reflex to HCV PCR, Serum (05/10/2024 8:33 AM CDT) HCV Ab Screen, S Negative Negative 05/10/2024 3:51 PM CDT ECLR Blood (Blood, Venous) 05/10/2024 8:33 AM CDT 05/10/2024 3:03 PM CDT Narrative [facility] - 05/10/2024 3:51 PM CDT Specimen Information: Specimen ID: [id number] Specimen Type: Blood Specimen Collection Start Date: 05/10/2024 ??8:33 AM Specimen Received Date: 05/10/2024 ??3:03 PM Specimen ID: [id number] Specimen Type: Blood Specimen Collection Start Date: 05/10/2024 ??8:33 AM Specimen Received Date: 05/10/2024 ??3:03 PM us Sola Kwan APRN, C.N.P. , D.N.P. LAB MICROBIOLOGY - BLOOD ORDERABLES Final Result Performing Organization Address City/[facility]/ZIP Co de Phone Number [facility] [address] [place] [phone], [facility] ECLR [facility] in [address] [address] * Hemoglobin A1c (05/10/2024 8:33 AM CDT) Hemoglobin A1c, B 5.2 4.2 - 5.6 % 05/10/2024 8:52 AM CDT CNFL Blood (Blood, Venous) 05/10/2024 8:33 AM CDT 05/10/2024 8:39 AM CDT Sola Kwan APRN C.N.P., D.N.P. LAB BLOOD A DD-ON Final Result Performing Organization Address [facility] [place] [address], [place] [address] * (ABNORMAL) Glucose, Fasting (05/10/2024 8:33 AM CDT) Glucose, P 101(H) 70 - 100 mg/dL 05/10/2024 8:59 AM CDT CNFL Last Intake 13 hr 05/10/2024 8:39 AM CDT CNFL Blood (Blood, Venous) 05/10/2024 8:33 AM CDT 05/10/2024 8:39 AM CDT Sola Kwan APRN, C.N.P., D.N.P. LAB BLOOD N ON ADD-ON Final Result Performing Organization Address City/[facility]/ZIP Co de Phone Number [facility] [address] [place] [phone], [facility] in [address] [address] * (ABNORMAL) Comprehensive Metabolic Panel (05/10/2024 8:33 AM CDT) Potassium, P 4.6 3.6 - 5.2 mmol/L 05/10/2024 9:03 AM CDT CNFL Sodium, P 140 135 - 145 mmol/L 05/10/2024 9:03 AM CDT CNFL Chloride, P 105 98 - 107 mmol/L 05/10/2024 9:03 AM CDT CNFL Bicarbonate, P 27 22 - 29 mmol/L 05/10/2024 9:03 AM CDT CNFL Anion Gap, P 8 7 - 15 05/10/2024 9:03 AM CDT CNFL BUN (Blood Urea Nitrogen), P 23(H) 6 - 21 mg/dL 05/10/2024 9:03 AM CDT CNFL Creatinine 0.80 0.59 - 1.04 mg/dL 05/10/2024 9:03 AM CDT CNFL Estimated GFR (eGFR) 88 >=60 mL/min/BS A 05/10/2024 9:03 AM CDT CNFL Comment: Estimated GFR calculated using the 2020 CKD_EPI creatinine equation. Calcium, Total, P 9.2 8.6 - 10.0 mg/dL 05/10/2024 9:03 AM CDT CNFL Glucose, P CANCELED mg/dL 05/10/2024 8:39 AM CDT CNFL Comment: Duplicate test request. Result canceled by the ancillary. Protein, Total, P 7.0 6.3 - 7.9 g/dL 05/10/2024 9:03 AM CDT CNFL Albumin, P 4.1 3.5 - 5.0 g/dL 05/10/2024 9:03 AM CDT CNFL Aspartate Aminotransferase (AST), P 27 8 - 43 U/L 05/10/2024 9:03 AM CDT CNFL Alkaline Phosphatase, P 94 35 - 104 U/L 05/10/2024 9:03 AM CDT CNFL Alanine Aminotransferase (ALT), P 25 7 - 45 U/L 05/10/2024 9:03 AM CDT CNFL Bilirubin, Total, P 0.5 0.0 - 1.2 mg/dL 05/10/2024 9:03 AM CDT CNFL Blood (Blood, Venous) 05/10/2024 8:33 AM CDT 05/10/2024 8:39 AM CDT us Sola Kwan APRN, C.N.P., D.N.P. LAB BLOOD A DD-ON Final Result [facility] [address] [place] [phone], [place] CNFL [facility] in [address] [address] * (ABNORMAL) MR Breast Bilateral without and [...] lateral aspect of the right breast (series [id number] image 69 measuring 1.3 x 0.8 cm. These regions generally display persistent or plateau kinetic curve. RIGHT AXILLA: ??There are multiple prominent right axillary lymph nodes, none of which meet lymphadenopathy by size criteria. LEFT BREAST: In the medial left breast there is a 5.1 x 8.4 cm T2 hyperintense cystic lesion with subtle area of enhancement along the inferior margin (series [id number] image 365). No other suspicious enhancing lesion [...] the lateral aspect of the rightbreast (series [id number] image 69 measuring 1.3 x 0.8 cm. These regions generally display persistent orplateau kinetic curve. RIGHT AXILLA: There are multiple prominent right axillary lymph nodes,none of which meet lymphadenopathy by size criteria. LEFT BREAST: In the medial left breast there is a 5.1 x 8.4 cm [id number] cystic lesion with subtle area of enhancement along the inferior margin (series [id number] ). No other suspicious enhancing lesion LEFT [...] breast. ASSESSMENT: BI-RADS: 6: Known Biopsy-Proven Malignancy. us Marilee Ruffin [facility]ITALOliver, PEddie., P.A. IMG MRI PROCEDURES Final Result * COLONOSCOPY (04/19/2023 8:36 AM CDT) Narrative Procedure Note Deonte Bryan M.D. - 04/19/2023 8:36 AM CDT [facility] Patient Name: Adela Slade Procedure Date: [...] the bowel preparation was evaluatedusing the BBPS ([place] Bowel Preparation Scale) with scores of: Right [...] AM David Fonseca M.D., Ph.D. GI PROCEDURE ORDERABLES Final Result from Last 3 Months or Most Recently Relevant to Health Maintenance Insurance [facility] [place] [employer] Care Teams Recreation Officer Relationship Specialty Start Date End Date Sola Kwan APRN, C.N.P., D.N.P. [id number] [place] [phone] PCP - General Family Medicine 05/24/22
--- OUTSIDE RECORDS SUMMARY | 2024-06-12 07:42 | XMS_ITS | Clinical Summary ---
Author Organization [facility] Address [place], [place] [address] Care Team Providers Care Jetting Machine Operator Name Role Phone Sola Kwan APRN, IMAGING ADMINISTRATOR Primary Care Provider Pcp, No Unavailable Unavailable Allergies No known active allergies Medications Medication Sig Dispensed Refills Start Date End Date Status nitroglycerin (NITRO-BID) 2 % ointmentIndications:R aynaud's syndrome Apply 0.5 Inches topically to affected area(s) every 6 hours. 1 Tube 0 11/21/2012 Active Encounters Date Type Department Care Team Description 03/13/2024 9:00 AM CDT Ancillary Procedure [facility] & [address] [address] 03/13/2024 Travel from Last 3 Months Social History Tobacco [...] Mass Index - - Plan of Treatment Upcoming Encounters Date Type Department Care Team (Late st Contact Info) Description 06/12/2024 8:00 AM CDT Ancillary Procedure [facility] & [address] [address] Health Maintenance Due Date Last Done Comments [...] 2) 2019 COVID-19 vaccine series ( season) 2024 06/14/2022 Influenza for age 50-64 04/28/2024 Pneumococcal series for age 6-64 Aged Out No longer eligible based on patient's age to complete this topic Procedures Procedure Name Priority Date/Time Associated Diagnosis Comments ECHO TTE COMPLETE W CONTRAST Routine 03/13/2024 10:10 AM CDT Encounter for therapeutic drug monitoring from Last 3 Months Results * ECHO TTE COMPLETE W CONTRAST (03/13/2024 10:10 AM CDT) AORTIC VALVE MEAN PG 6 mmHg EJECTION FRACTION 62 % LVEDD 5.2 cm Anatomical Region Laterality Modality Ultrasound 03/13/2024 9:13 AM CDT Narrative 03/13/2024 11:24 AM CDT ECHOCARDIOGRAM ADELA Primitivo SLADE ?Accession#: ?? [id number] : ?1970 53 years Study Date: ?? 03/13/2024 9:13:43 AM Gender: F ? BP: ? 129/84 mmHg Height: 168.00 cm ? BSA: ?2.18 m? ? ? Weight: 111.00 kg ? Tech: ? MTS ?Referring MD: AGNES PONCE Site: ? [facility] Reading Location: MOBILE OP Patient Location: Outpatient. Procedure: 2D w/ Contrast, Color Doppler and Spectral Doppler. Indication for study: Encounter for therapeutic drug monitoring Cardiac Rhythm: Regular.Study quality: Technically limited. Imaging limitations: This study was subject to imaging limitations due to breast expanders. Final Impressions: 1. Technically limited exam. 2. Normal left ventricular size, normal wall thickness, normal global systolic function, calculated EF of 62 %. 3. Right ventricular cavity size is normal, global systolic RV function is normal. 4. No significant valve disease detected. Chamber Sizes and Function Normal left ventricular size, normal wall thickness, normal global systolic function, calculated EF of 62 %. Left atrial size is normal. Right ventricular cavity size is normal, global systolic RV function is normal. RV wall thickness is normal. The right atrium is normal. The pulmonary artery is of normal size and origin. The sinus of Valsalva is normal sized. The ascending aorta is normal sized. Valves, RV Pressures and Diastolic Function The aortic valve is normal in structure and trileaflet, no stenosis and no regurgitation. The mitral valve is normal in structure, no mitral regurgitation. Normal diastolic function for age. The tricuspid valve is normal in structure. Tricuspid regurgitation is trace regurgitation. The pulmonic valve is normal. No pulmonary regurgitation. Masses, Effusion, Shunts There is no pericardial effusion. The inferior vena cava is normal sized, respiratory size variation greater than 50%. No left to right shunting was detected by limited color flow Doppler interrogation of the interatrial septum. MEASUREMENTS AND CALCULATIONS 2-D Measurements and LV Function: LVID (d) 5.2 cm Planimetered EF 62 % LVID (s) 3.6 cm LV FS% (2D) ? 31 % IVS (d) ??1.0 cm LVOT diameter ?? 2.1 cm LVPW (d) 1.1 cm HR ?75 bpm Ao Sinus 3.0 cm LA Vol index ?34 ml/m2 Asc Ao ?? 3.3 cm Diastology: Mitral ?Tissue Doppler ?Pulmonary veins E Peak 1.0 m/s ??e', Septum ? 0.07 m/s Pulm s ?64.2 cm/s A Peak 0.7 m/s ??e', Lateral ?0.12 m/s Pulm d ?52.5 cm/s E/A ?1.5 ?E/e' Average ?? 10.46 ?Pulm s/d ratio ??1.22 DT ? 219 msec Aortic Valve: Vmax ? 1.8 m/s ??BRENDAN (V) ?? 2.23 cm? ? ? VTI ?0.40 m ?? BRENDAN (I) ?? 2.36 cm? ? ? LVOT V max 1.1 m/s ??Max PG ?12 mmHg LVOT VTI ?? 0.27 m ?? Mean PG ?? 6 mmHg SV ? 94 ml ?Dim Index 0.68 SV index ?? 43 ml/m? ? ? CO ?7.0 l/min ?CI ?3.2 l/min/m? ? ? Mitral Valve: MVA ?3.5 cm? ? ? MV P 1/2 64 msec Tricuspid Valve and estimated PA pressures: TAPSE 3.2 cm Contrast documentation: 3 ml diluted Definity, lot #[id number], [facility]# [id number] was administered peripherally to enhance visualization of all left ventricular segments. . This study was interpreted by an [facility] accredited facility. CC: [facility] (med records) [facility]. ??Final ?? Procedure Note Mati Dubois MD - 03/13/2024 ECHOCARDIOGRAM ADELA SLADE : 1970 53 years Study Date: 03/13/2024 9:13:43 AM Gender: F BP: 129/84 mmHg Height: 168.00 cm BSA: 2.18 m? ? ? Weight: 111.00 kg Tech: [place] Referring MD: AGNES PONCE Site: [facility] Reading Location: MOBILE OP Patient Location: Outpatient. Procedure: 2D w/ Contrast, Color Doppler and Spectral Doppler. Indication for study: Encounter for therapeutic drug monitoring Cardiac Rhythm: Regular.Study quality: Technically limited. Imaging limitations: This study was subject to imaging limitations due tobreast expanders. Final Impressions: 1. Technically limited exam. 2. Normal left ventricular size, normal wall thickness, normal globalsystolic function, calculated EF of 62 %. 3. Right ventricular cavity size is normal, global systolic RV functionis normal. 4. No significant valve disease detected. Chamber Sizes and Function Normal left ventricular size, normal wall thickness, normal globalsystolic function, calculated EF of 62 %. Left atrial size is normal.Right ventricular cavity size is normal, global systolic RV function isnormal. RV wall thickness is normal. The right atrium is normal. Thepulmonary artery is of normal size and origin. The sinus of Valsalva isnormal sized. The ascending aorta is normal sized. Valves, RV Pressures and Diastolic Function The aortic valve is normal in structure and trileaflet, no stenosis and noregurgitation. The mitral valve is normal in structure, no mitralregurgitation. Normal diastolic function for age. The tricuspid valve isnormal in structure. Tricuspid regurgitation is trace regurgitation. Thepulmonic valve is normal. No pulmonary regurgitation. Masses, Effusion, Shunts There is no pericardial effusion. The inferior vena cava is normal sized,respiratory size variation greater than 50%. No left to right shunting wasdetected by limited color flow Doppler interrogation of the interatrialseptum. MEASUREMENTS AND CALCULATIONS 2-D Measurements and LV Function: LVID (d) 5.2 cm Planimetered EF 62 % LVID (s) 3.6 cm LV FS% (2D) 31 % IVS (d) 1.0 cm LVOT diameter 2.1 cm LVPW (d) 1.1 cm HR 75 bpm Ao Sinus 3.0 cm LA Vol index 34 ml/m2 Asc Ao 3.3 cm Diastology: Mitral Tissue Doppler Pulmonary veins E Peak 1.0 m/s e', Septum 0.07 m/s Pulm s 64.2 cm/s A Peak 0.7 m/s e', Lateral 0.12 m/s Pulm d 52.5 cm/s E/A 1.5 E/e' Average 10.46 Pulm s/d ratio 1.22 DT 219 msec Aortic Valve: Vmax 1.8 m/s BRENDAN (V) 2.23 cm? ? ? VTI 0.40 m BRENDAN (I) 2.36 cm? ? ? LVOT V max 1.1 m/s Max PG 12 mmHg LVOT VTI 0.27 m Mean PG 6 mmHg SV 94 ml Dim Index 0.68 SV index 43 ml/m? ? ? CO 7.0 l/min CI 3.2 l/min/m? ? ? Mitral Valve: MVA 3.5 cm? ? ? MV P 1/2 64 msec Tricuspid Valve and estimated PA pressures: TAPSE 3.2 cm Contrast documentation: 3 ml diluted Definity, lot #[id number], [facility]#[id number] was administered peripherally to enhance visualization of allleft ventricular segments. . This study was interpreted by an [facility] accredited facility. CC: [facility] (med [facility]) [facility]. Final Agnes Ponce MD ECHO ORD from Last 3 Months Care Teams Jetting Machine Operator Relationship Specialty Start Date End Date Sola Kwan, DIRT CONTRACTOR, IMAGING ADMINISTRATOR [id number] [phone] PCP - General Nurse Practitioner - Family 08/25/23 Pcp, No . 08/25/23
--- OUTSIDE RECORDS SUMMARY | 2024-06-12 07:42 | XMS_ITS | Referral Summary ---
Author Organization [facility] Address [address] [place] [address] Care Team Providers Care Associate Professor Of Media Arts Name Role Phone Sola Kwan APRN, C.N.P., D.N.P. Primary Ca re Provider Source Comments Patient records contain information from all sites at [facility]. For routine questions regarding patient records, call [phone] during business hours, M-F 8:00 AM - 5:00 PM Central Time. Record requests for emergency care only can be directed to [phone] at any time.[facility] Encounters Date Type Department Care Team Description 05/10/2024 8:00 AM CDT Comprehensive Visit Department of Family Medicine, [facility], in [address] [address] Sola Kwan APRN, C.N.P., D.N.P. Malignant Neoplasm Of Breast Female Right (HCC) (Primary Dx); General Medical Examination Adult; Infection Toenail Left; Gastroesophageal Reflux Disease Without Esophagitis; Obesity Body Mass Index 30-39.9 Adult; Apnea Sleep Obstructive; Human Immunodeficiency Virus Screening; Screening Test Laboratory; Impaired Fasting Glucose; Screening Lipid 05/02/2024 Refill Department of Family Medicine, [facility], in [address] [phone] Sola Kwan APRN, C.N.P., D.N.P. Med Refill 04/24/2024 Refill Division of Endocrinology in [place], [place] [address] [place] [address] Monet Gr P.A.-C. Med Refill 03/13/2024 Refill Department of Family Medicine, [facility], in [address] [address] Sola Kwan APRN, C.N.P., D.N.P. Med Refill from Last 3 Months Allergies No known active allergies Medications * [...] skin every 7 (seven) days. 2 mL 4 Active semaglutide (Wegovy) 1.7 mg/0.75 mL pen injector injection Inject 1.7 mg under the skin every 7 (seven) days. 3 mL 11 4 Active semaglutide (Wegovy) 2.4 mg/0.75 mL pen injector injection Inject 2.4 mg under the skin every 7 (seven) days. 9 mL 11 4 Active fluticasone propionate (FLONASE) 50 mcg/actuation [...] (06/07/2021): Added automatically from request for surgery [id number] Apnea Sleep Obstructive 06/07/2021 Impaired Fasting Glucose 09/12/2019 Gastroesophageal Reflux Disease NOS 05/26/2016 Epicondylitis Lateral Right 05/26/2016 Cervical Dysplasia Personal History 01/27/2015 Lesion Severe Squamous Intra epithelial Cervix (Severe Dysplasia) 12/09/2013 Pain Back Lumbar Pain Low Back Unspecified Resolved Problems Problem Noted Date Diagnosed Date Resolved Date Exposure Rabies 09/19/2021 05/10/2024 Immunizations Name Administration Dates Next Due HepB [...] often do you attend chur ch or rastafari services? Never 07/27/2020 Do you belong to any clubs o r organizations such as yarsanism groups, unions, fraternal or athletic groups, or [...] Answer Date Recorded PHQ-2 Score 0 05/10/2024 [facility] - [...] your living situation today? I have a [facility] place to live 05/11/2023 Education Answer Date Recorded What is the highest level of school you have completed or the highest degree you have received? GED or equivalent Comments No Sex and Gender Information Value Date Recorded Sex Assigned at Female 05/16/2023 7:46 AM CDT Legal Sex Female 10:27 AM AWNING HANGER Gender Identity Female 05/03/2022 12:49 PM CDT [...] (Latest Contact Info) Description 08/05/2024 3:30 PM AWNING HANGER Comprehensive Visit Department of Orthopedic Surgery in [address] [place] [address] Lacie Martin D.P.M. 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 at [facility] Breast Implant Right: Breast [employer] [id number] 11/24/2026 SCPX-135 / [id number] / [id number] Exp Brst [place] 550 - [id number] - [id number] Implanted:Qt y: 1 on 07/18/2023 by Moe Leger M.D. at [facility] Breast Implant Left: Breast [employer] [id number] 06/11/2027 SCPX-135 / [id number] / [id number] Clp Hrzn Ti 6 Hazel Ayala Dell - [id number] Implanted:Qt y: 1 on 07/18/2023 by Veronica Joy M.D. at [facility] Hardware e.g. pins/screws /rods Tele[employer] Quotations Book [id number] 01/11/2028 [id number] / / [id number] Clp Hrzn Ti 6 Hazel Ayala Dell - [id number] Implanted:Qt y: 1 on 07/18/2023 by Veronica Joy M.D. at [facility] Hardware e.g. pins/screws /rods [employer] Quotations Book [id number] 01/11/2028 [id number] / / [id number] Clp Hrzn Ti 24 Hazel Ayala Dell - [id number] Implanted:Qt y: 1 on 07/18/2023 by Veronica Joy M.D. at [facility] Hardware e.g. pins/screws /rods [employer] [id number] 05/09/2028 [id number] / / [id number] Mrk Biop Tmr Q Shp [id number] - [id number] Implanted:Qt y: 1 on 04/26/2023 at [facility] Imaging [employer] 10/25/2027 [id number] / / [id number] Mrk Biop Site - [id number] Implanted:Qt y: 1 on 05/10/2023 at [facility] [employer] 10/26/2026 TUMARK-E 13-S-VIS ION / / [id number] Mrk Biop Trm Brst Strtc 9ga - [id number] Implanted:Qt y: 1 on 05/10/2023 at [facility] Imaging [employer] 01/21/2024 TRIMARK- EVIVA- / / [id number] Mrk Biop Trm Brst Strtc 9ga - [id number] Implanted:Qt y: 1 on 05/10/2023 at [facility] [employer] 01/21/2024 TRIMARK- EVIVA- / / [id number] Procedures Procedure Name Priority Date/Time Associated Diagnosis [...] 05/10/2024 3:03 PM CDT us Sola Kwan APRN, C.N.P. , D.N.P. LAB MICROBIOLOGY - BLOOD ORDERABLES Final Result [facility] [address] [place] [address], [facility] ECLR [facility] in [place] [address] [place] [address] * Lipid Panel (05/10/2024 8:33 AM CDT) [...] A DD-ON Final Result Performing Organization Address [facility] Co de Phone Number [facility] [address] [place] [address], [facility] CNFL [facility] in [address] [address] * HCV Ab Scrn w/Reflex to HCV PCR, Serum (05/10/2024 8:33 AM CDT) HCV Ab Screen, S Negative Negative 05/10/2024 3:51 PM CDT ECLR Blood (Blood, Venous) 05/10/2024 8:33 AM CDT 05/10/2024 3:03 PM CDT Narrative [facility] - 05/10/2024 3:51 PM CDT Specimen Information: Specimen ID: [id number] Specimen Type: Blood Specimen Collection Start Date: 05/10/2024 ??8:33 AM Specimen Received Date: 05/10/2024 ??3:03 PM Specimen ID: [id number] Specimen Type: Blood Specimen Collection Start Date: 05/10/2024 ??8:33 AM Specimen Received Date: 05/10/2024 ??3:03 PM Sola Kwan APRN C.N.P. , D.N.P. LAB MICROBIOLOGY - BLOOD ORDERABLES Final Result Performing Organization Address City/[facility]/ZIP Co de Phone Number [facility] [address] [place] [address], [facility] ECLR [facility] in [address] [address] * Hemoglobin A1c (05/10/2024 8:33 AM CDT) Hemoglobin A1c, B 5.2 4.2 - 5.6 % 05/10/2024 8:52 AM CDT CNFL Blood (Blood, Venous) 05/10/2024 8:33 AM CDT 05/10/2024 8:39 AM CDT Sola Kwan APRN, C.N.P., D.N.P. LAB BLOOD A DD-ON Final Result [address] [address], [facility] [address] [address] * (ABNORMAL) Glucose, Fasting (05/10/2024 8:33 AM CDT) Glucose, P 101(H) 70 - 100 mg/dL 05/10/2024 8:59 AM CDT CNFL Last Intake 13 hr 05/10/2024 8:39 AM CDT CNFL Blood (Blood, Venous) 05/10/2024 8:33 AM CDT 05/10/2024 8:39 AM CDT Sola Kwan APRN, C.N.P., D.N.P. LAB BLOOD N ON ADD-ON Final Result [address] [address], [facility] in [address] [address] * (ABNORMAL) Comprehensive Metabolic Panel (05/10/2024 8:33 [...] D.N.P. LAB BLOOD A DD-ON Final Result [facility] [address] [place] [address], [facility] CNFL [facility] in [address] [address] * (ABNORMAL) MR Breast Bilateral without and [...] lateral aspect of the right breast (series [id number] image 69 measuring 1.3 x 0.8 cm. These regions generally display persistent or plateau kinetic curve. RIGHT AXILLA: ??There are multiple prominent right axillary lymph nodes, none of which meet lymphadenopathy by size criteria. LEFT BREAST: In the medial left breast there is a 5.1 x 8.4 cm T2 hyperintense cystic lesion with subtle area of enhancement along the inferior margin (series [id number] image 365). No other suspicious enhancing lesion [...] the lateral aspect of the rightbreast (series [id number] image 69 measuring 1.3 x 0.8 cm. These regions generally display persistent orplateau kinetic curve. RIGHT AXILLA: There are multiple prominent right axillary lymph nodes,none of which meet lymphadenopathy by size criteria. LEFT BREAST: In the medial left breast there is a 5.1 x 8.4 cm [id number] cystic lesion with subtle area of enhancement along the inferior margin (series [id number]). No other suspicious enhancing lesion LEFT AXILLA: [...] 6: Known Biopsy-Proven Malignancy. us Marilee Ruffin LEXA, Aimee, P.A. IMG MRI PROCEDURES Final Result * COLONOSCOPY (04/19/2023 8:36 AM CDT) Narrative Procedure Note Deonte Bryan M.D. - 04/19/2023 8:36 AM CDT [facility] Patient Name: Adela Slade Procedure Date: [...] the bowel preparation was evaluatedusing the BBPS ([place] Bowel Preparation Scale) with scores of: Right [...] Recently Relevant to Health Maintenance Administered Medications Insurance [facility] DEPARTMENT [facility] LABOR Care Teams Associate Professor Of Media Arts Relationship Specialty Start Date End Date Sola Kwan APRN, C.N.P., D.N.P. [address] [place] [phone] PCP - General Family Medicine 05/24/22
--- OUTSIDE RECORDS SUMMARY | 2024-06-12 07:43 | XMS_ITS | Encounter Summary ---
Author Organization [facility] Address [address] [place] [address] Care Team Providers Care Batch Operator Name Role Phone Sola Kwan APRN, C.N.P., D.N.P. Primary Ca re Provider Reason for Visit * Reason Comments Med Refill Encounter Details Date Type Department Care Team (Late st Contact Info) Description 03/04/2024 Refill Division of Endocrinology in [place], [place] [address] [place] [address] Monet Gr, PDarenADaren-C. [address] [place] [phone] Med Refill Social History Tobacco Use Types [...] often do you attend chur ch or mandaeism services? Never 07/27/2020 Do you belong to [...] Answer Date Recorded PHQ-2 Score 0 09/29/2022 [facility] Questionnaire Answer Date [...] your living situation today? I have a [facility] place to live 05/11/2023 Education Answer Date Recorded What is the highest level of school you have completed or the highest degree you have received? GED or equivalent Comments No Sex and Gender Information Value Date Recorded Sex Assigned at Female 05/16/2023 7:46 AM CDT Legal Sex Female 10:27 AM MULTIMEDIA AUTHORING SPECIALIST Gender Identity Female 05/03/2022 12:49 PM CDT Sexual Orientation Straight 05/03/2022 12 :49 PM CDT documented as of this encounter Plan of Treatment Upcoming Encounters Date Type Department Care Team (Latest Contact Info) Description 08/05/2024 3:30 PM MULTIMEDIA AUTHORING SPECIALIST Comprehensive Visit Department of Orthopedic Surgery in [address] [phone] Lacie Martin D.PDarenMDaren [address] [place] [phone] Discharge Disposition: Home or Self Care Scheduled Procedures Name Priority Associated Diagnoses Date/Ti me 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 [address] [phone] PCP - General Family Medicine 05/24/22 documented as of this encounter
--- OUTSIDE RECORDS SUMMARY | 2024-06-12 07:43 | XMS_ITS | Encounter Summary ---
Author Organization [facility] Address [address] [place] [address] Care Team Providers Care Account Planner Name Role Phone Sola Kwan APRN, C.N.P., D.N.P. Primary Ca re Provider Reason for Visit * Reason Comments Med Refill Encounter Details Date Type Department Care Team (Late st Contact Info) Description 03/04/2024 Refill Division of Endocrinology in [place], [place] [address] [place] [address] Monet Gr, PDarenADaren-C. [address] [place] [phone] Med Refill Social History Tobacco Use Types [...] often do you attend chur ch or yazdanism services? Never 07/27/2020 Do you belong to any clubs o r organizations such as restorationism groups, unions, fraternal or athletic groups, or [...] Answer Date Recorded PHQ-2 Score 0 09/29/2022 [facility] Questionnaire Answer Date [...] your living situation today? I have a [facility] place to live 05/11/2023 Education Answer Date Recorded What is the highest level of school you have completed or the highest degree you have received? GED or equivalent Comments No Sex and Gender Information Value Date Recorded Sex Assigned at Female 05/16/2023 7:46 AM CDT Legal Sex Female 10:27 AM SEO INTERN Gender Identity Female 05/03/2022 12:49 PM CDT Sexual Orientation Straight 05/03/2022 12 :49 PM CDT documented as of this encounter Plan of Treatment Upcoming Encounters Date Type Department Care Team (Latest Contact Info) Description 08/05/2024 3:30 PM SEO INTERN Comprehensive Visit Department of Orthopedic Surgery in [address] [phone] Lacie Martin D.PDarenMDaren [address] [place] [phone] Discharge Disposition: Home or Self Care Scheduled Procedures Name Priority Associated Diagnoses Date/Ti me 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 [address] [phone] PCP - General Family Medicine 05/24/22 documented as of this encounter
--- OUTSIDE RECORDS SUMMARY | 2024-06-12 07:43 | XMS_ITS | Encounter Summary ---
Author Organization [facility] Address [address] [place] [address] Care Team Providers Care Recooperer Name Role Phone Sola Kwan APRN, C.N.P., D.N.P. Primary Ca re Provider Reason for Visit * Reason Comments Med Refill Encounter Details Date Type Department Care Team (Late st Contact Info) Description 05/02/2024 Refill Department of Family Medicine, [facility], in [address] [phone] Sola Kwan APRN, C.N.P., D.N.P. [address] [place] [phone] Med Refill Social History Tobacco Use Types [...] any clubs o r organizations such as buddhist groups, unions, fraternal or athletic groups, or [...] Answer Date Recorded PHQ-2 Score 0 09/29/2022 [facility] - Occupational Stress Questionnaire Answer Date [...] your living situation today? I have a [facility] place to live 05/11/2023 Education Answer Date Recorded What is the highest level of school you have completed or the highest degree you have received? GED or equivalent Comments No Sex and Gender Information Value Date Recorded Sex Assigned at Female 05/16/2023 7:46 AM CDT Legal Sex Female 10:27 AM SPRINKLING SYSTEM INSTALLER Gender Identity Female 05/03/2022 12:49 PM CDT Sexual Orientation Straight 05/03/2022 12 :49 PM CDT documented as of this encounter Plan of Treatment Upcoming Encounters Date Type Department Care Team (Latest Contact Info) Description 08/05/2024 3:30 PM SPRINKLING SYSTEM INSTALLER Comprehensive Visit Department of Orthopedic Surgery in [address] [place] [phone] Lacie Martin D.PDarenMDaren [address] [place] [phone] Discharge Disposition: Home or Self Care Scheduled Procedures Name Priority Associated Diagnoses Date/Ti me REMOVAL TISSUE RENTAL AGENT BREAST Absence Of Breast Acquired Bilateral INJECTION FAT Absence Of Breast Acquired Bilateral RECONSTRUCTION BREAST WITH IMPLANT Absence Of Breast Acquired Bilateral documented as of this encounter Visit Diagnoses Diagnosis Gastroesophageal Reflux Disease Without Esophagitis documented in this encounter Additional Health Concerns Assessment Noted Time PHQ-9 Depression Total Score: 0 10/30/19 14 3:19 PM SPRINKLING SYSTEM INSTALLER documented as of this encounter Care Teams Recooperer Relationship Specialty Start Date End Date Sola Kwan APRN, C.N.P., D.N.P. [address] [place] [phone] PCP - General Family Medicine 05/24/22 documented as of this encounter
--- OUTSIDE RECORDS SUMMARY | 2024-06-12 07:43 | XMS_ITS | Encounter Summary ---
Author Organization [facility] Address [address] [place] [address] Care Team Providers Care Advanced Quality Engineer Name Role Phone Sola Kwan APRN, C.N.P., D.N.P. Primary Ca re Provider Reason for Referral * Outpatient (Routine) - Authorized Specialty Diagnoses / Procedures Referred By Gal bryant Referred To Contact Orthopedic Surgery Diagnoses Infection Toenail Left Sola Kwan APRN, C.N.P., D.N.P. [address] [place] [phone] Phone: tel: fax: [facility] Referral ID Status Reason Start Date Expiration Date V isits Requested Visits Authorized [id number] Authorized 05/10/2024 11/09/2025 1 1 Scheduling Instructions Schedule after imaging orders Reason for Visit * Reason Comments Annual Exam Refills and Left donna t Great &1st toe- possible fungus or infection? Started 2 months ago, wore shoes that were to small. Sore, clear drainage * Outpatient (Routine) - Closed Specialty Diagnoses / Procedures Referred By Gal bryant Referred To Contact Family Medicine Sola Kwan APRN, C.N.P., D.N.P. [phone] [place] [phone] Phone: tel: fax: [facility] Region Referral ID Status Reason Start Date Expiration Date Visits Re quested Visits Authorized [id number] Closed 12/08/2023 06/08/2025 1 1 Encounter Details Date Type Department Care Team (Latest Contact Info) Description 05/10/2024 8:00 AM CDT Comprehensive Visit Department of Family Medicine, [facility], in [address] [phone] Sola Kwan APRN, C.N.P., D.N.P. [address] [place] [phone] Malignant Neoplasm Of Breast Female Right (HCC) (Primary Dx); General Medical Examination Adult; Infection Toenail Left; Gastroesophageal Reflux Disease Without Esophagitis; Obesity Body Mass Index 30-39.9 Adult; Apnea Sleep Obstructive; Human Immunodeficiency Virus Screening; Screening Test Laboratory; Impaired Fasting Glucose; Screening Lipid Social History Tobacco Use Types Packs/Day Years [...] any clubs o r organizations such as shinto groups, unions, fraternal or athletic groups, or [...] Answer Date Recorded PHQ-2 Score 0 05/10/2024 [facility] - Occupational Stress Questionnaire Answer Date [...] AM CDT Legal Sex Female 10:27 AM RESOURCE SPECIALIST Gender Identity Female 05/03/2022 12:49 PM CDT Sexual Orientation Straight 05/03/2022 12 :49 PM CDT documented as of this encounter Last Filed Vital Signs Vital Sign Reading Time Taken Comments Blood Pressure 119/86 05/10/2024 7:56 AM CDT Pulse 72 05/10/2024 7:56 AM CDT Temperature - - Respiratory Rate 16 05/10/2024 7:56 AM CDT Oxygen Saturation - - Inhaled Oxygen Concentration - - Weight 108 kg (238 lb 8.6 oz) 05/10/2024 7:56 AM CDT Height 169.5 cm (5' 6.73) 05/10/2024 7:56 AM CD T Body Mass Index 37.66 05/10/2024 7:56 AM CDT documented in this encounter H&P Notes * Sola Kwan APRN, C.N.P., D.N.P. - 05/10/2024 8:00 AM CDT SUBJECTIVE CHIEF COMPLAINT/REASON FOR VISIT Adela is a 53 y.o. female who presents to the clinic today for her well exam. HISTORY OF PRESENT ILLNESS Adela presents for annual exam. She overall has been feeling well. She has a left great and second toe infection that first started a few months ago. Symptoms started after she had worn tight fitting shoes for awhile, and then she began having some toenail thickening, clear odorous drainage, andburning pain under the nail. The nails are lifting up off the nail bed. There is no surrounding erythema or skin changes. OBJECTIVE PHYSICAL EXAMINATION Vital Signs: BP 119/86 (BP Location: Left arm, Patient Position: Sitting, Cuff Size: Large) Pulse72 Resp 16 Ht 169.5 cm Wt 108 kg BMI 37.66 kg/m?? Body mass index is 37.66 kg/m??. General: This patient is alert and in no acute distress. Neck: Supple without lymphadenopathy. Respiratory: Effort is easy. Lung sounds are clear to auscultation. Cardiovascular: S1 and S2 are present, normal rate and rhythm. Abdomen: Soft, nontender. Bowel sounds present. Musculoskeletal: Grossly intact. No deformities are noted. Skin: Normal color, temperature and moisture. No rashes or lesions are noted. Neurologic: Cranial nerves 2-12 grossly intact. Foot: Left foot great toe and second toe are painted, so unable to visualize full nail bed. They are lifting off the nail plate, and have thickening on the sides of the nails and tip of the nail. Psychiatric: Behavior, mood, affect, cognition and insight are all appropriate. ASSESSMENT / PLAN #1 General Medical Examination Adult Annual wellness exam today. Discussed routine health maintenance for age. Lipid Screen: Labs pending. Diabetes Screen: Labs pending. Colon Cancer screening: Due in 2032. Bone Density: Due at age 64. Cervical Cancer Screening: NO longer indicated. Immunizations: Declines. Follow-up 1 year for annual exam or return to clinic sooner if any problems develop. #2 Infection Toenail Left Will begin treatment with topical penlac and ciprofloxacin for pseudomonas coverage. Recommend follow up with podiatry if persisting. No signs of paronychia needing systemic treatment at this time, but will obtain LFTs in case needing to treat with oral antifungal. 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 #5 Obesity Body Mass Index 30-39.9 Adult Continue on wegovy, has had some success with weight loss so far without any significant side effects. #6 Apnea Sleep Obstructive Uses CPAP nightly. #7 Human Immunodeficiency Virus Screening #8 Screening Test Laboratory #9 Impaired Fasting Glucose #10 Screening Lipid Labs pending. Plan was discussed with patient and is in agreement with plan. All questions were answered. Side effects of any/all new medications were discussed. Patient left in no acute distress. Ready to learn. No apparent learning barriers were identified. Learning preferences include listening. Explained diagnosis and treatment plan. Patient/Child/Caregiver expressed understanding of the content. Total time: 32 minutes Sola Kwan APRN, C.NFabien, D.N.P. documented in this encounter Plan of Treatment Upcoming Encounters Date Type Department Care Team (Latest Contact Info) Description 08/05/2024 3:30 PM RESOURCE SPECIALIST Comprehensive Visit Department of Orthopedic Surgery in [address] [phone] Lacie Martin D.PDarenM. 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 PRODUCT LINE MANAGER BREAST Absence Of Breast Acquired Bilateral INJECTION FAT Absence Of Breast Acquired Bilateral RECONSTRUCTION BREAST WITH IMPLANT Absence Of Breast Acquired Bilateral Scheduled Referrals Name Type Priority Associated Diagnoses Order Schedule Orthopedic Surgery - Podiatry foot non surgical consult (clinic) Outpatient Referral Routine Infection Toenail Left Expected: 05/10/2024 (Approximate), Expires: 08/09/2025 documented as of this encounter Procedures Procedure Name Priority Date/Time Associated Diagnosis Comments HIV-1/-2 AG AND AB SCREEN, PLASMA Routine 05/10/2024 8:33 AM CDT Human Immunodeficiency Virus Screening LIPID PANEL, S Routine 05/10/2024 8:33 AM CDT Screening Lipid HCV AB SCRN W/REFLEX TO HCV PCR, S Routine 05/10/2024 8:33 AM CDT Screening Test Laboratory HEMOGLOBIN A1C, B Routine 05/10/2024 8:3 3 AM CDT Impaired Fasting Glucose GLUCOSE, FASTING, S/P Routine 05/10/2024 8:33 AM CDT Impaired Fasting Glucose COMPREHENSIVE METABOLIC PANEL, S/P Routine 05/10/2024 8:33 AM CDT Gastroesophageal Reflux Disease Without Esophagitis documented in this encounter Results * HCV Ab Scrn w/Reflex to HCV PCR, Serum (05/10/2024 8:33 AM CDT) HCV Ab Screen, S Negative Negative 05/10/2024 3:51 PM CDT ECLR Blood (Blood, Venous) 05/10/2024 8:33 AM CDT 05/10/2024 3:03 PM CDT Narrative [facility] - 05/10/2024 3:51 PM CDT Specimen Information: Specimen ID: [id number] Specimen Type: Blood Specimen Collection Start Date: 05/10/2024 ??8:33 AM Specimen Received Date: 05/10/2024 ??3:03 PM Specimen ID: [id number] Specimen Type: Blood Specimen Collection Start Date: 05/10/2024 ??8:33 AM Specimen Received Date: 05/10/2024 ??3:03 PM us Sola Kwan APRN, C.N.P. , D.N.P. LAB MICROBIOLOGY - BLOOD ORDERABLES Final Result [facility] [address] [place] [address], [facility] ECLR [facility] [place] [facility] in [address] [address] * HIV-1/-2 Ag and Ab Screen, Plasma [...] LAB MICROBIOLOGY - BLOOD ORDERABLES Final Result [facility] [address] [place] [address], [facility] ECLR [facility] [place] [facility] in [address] [address] * Lipid Panel (05/10/2024 8:33 AM CDT) [facility] Triglycerides 67 mg/dL 05/10/2024 9:03 AM CDT [...] D.N.P. LAB BLOOD A DD-ON Final Result [facility] [address] [place] [address], [facility] in [address] [address] * (ABNORMAL) Comprehensive Metabolic Panel (05/10/2024 8:33 [...] 8:39 AM CDT us Sola Kwan APRN C.N.PDaren, D.N.P. LAB BLOOD A DD-ON Final Result [address] [address], [address] [address] * (ABNORMAL) Glucose, Fasting (05/10/2024 8:33 AM CDT) Glucose, P 101(H) 70 - 100 mg/dL 05/10/2024 8:59 AM CDT CNFL Last Intake 13 hr 05/10/2024 8:39 AM CDT FL Blood (Blood, Venous) 05/10/2024 8:33 AM CDT 05/10/2024 8:39 AM CDT Jerel Lopez APRN.N.P., D.N.P. LAB BLOOD N ON ADD-ON Final Result [address] [address], [place] [address] [address] * Hemoglobin A1c (05/10/2024 8:33 AM CDT) Hemoglobin A1c, B 5.2 4.2 - 5.6 % 05/10/2024 8:52 AM CDT FL Blood (Blood, Venous) 05/10/2024 8:33 AM CDT 05/10/2024 8:39 AM CDT Jerel Everett APRN.N.P., D.N.P. LAB BLOOD A DD-ON Final Result [address] [address], [place] [facility] in [address] [address] documented in this encounter Visit Diagnoses Diagnosis Malignant Neoplasm Of Breast Female Right (HCC)- Primary General Medical Examination Adult Infection Toenail Left Gastroesophageal Reflux Disease Without Esophagitis Obesity Body Mass Index 30-39.9 Adult Apnea Sleep Obstructive Human Immunodeficiency Virus Screening Screening Test Laboratory Impaired Fasting Glucose Screening Lipid documented in this encounter Additional Health Concerns Assessment Noted Time PHQ-9 Depression Total Score: 0 10/30/19 14 3:19 PM RESOURCE SPECIALIST documented as of this encounter Care Teams Advanced Quality Engineer Relationship Specialty Start Date End Date Sola Kwan APRN, C.N.P., D.N.P. [address] [phone] PCP - General Family Medicine 05/24/22 documented as of this encounter
--- OUTSIDE RECORDS SUMMARY | 2024-06-12 07:43 | XMS_ITS | Encounter Summary ---
Author Organization [facility] Address [address] [place] [address] Care Team Providers Care Store Director Name Role Phone Sola Kwan APRN, C.N.P., D.N.P. Primary Ca re Provider Reason for Visit * Reason Onset Date Comments Rx Prior Authorization 03/04/2024 Wegovy or Qsymia? Encounter Details Date Type Department Care Team (Latest Contact Info) Description 03/04/2024 Clinical Communication Division of Endocrinology in [place], [place] [address] [place] [address] Monet Gr, PDarenAShaun. [address] [place] [phone] Rx Prior Authorization (Wegovy or Qsymia?) Social [...] any clubs o r organizations such as confucianism groups, unions, fraternal or athletic groups, or [...] Date Recorded PHQ-2 Score 0 09/29/2022 [facility] Health - Occupational Stress Questionnaire Answer Date [...] your living situation today? I have a [facility] place to live 05/11/2023 Education Answer Date Recorded What is the highest level of school you have completed or the highest degree you have received? GED or equivalent Comments No Sex and Gender Information Value Date Recorded Sex Assigned at Female 05/16/2023 7:46 AM CDT Legal Sex Female 10:27 AM MAGNETIC PROSPECTING OPERATOR Gender Identity Female 05/03/2022 12:49 PM CDT Sexual Orientation Straight 05/03/2022 12 :49 PM CDT documented as of this encounter Plan of Treatment Upcoming Encounters Date Type Department Care Team (Latest Contact Info) Description 08/05/2024 3:30 PM MAGNETIC PROSPECTING OPERATOR Comprehensive Visit Department of Orthopedic Surgery in [address] [place] [address] Lacie Martin D.PDarenMDaren [address] [place] [phone] Discharge Disposition: Home or Self Care Scheduled Procedures Name Priority Associated Diagnoses Date/Ti me REMOVAL TISSUE ORTHOPEDIC SHOE FITTER BREAST Absence Of Breast Acquired Bilateral INJECTION FAT Absence Of Breast Acquired Bilateral RECONSTRUCTION BREAST WITH IMPLANT Absence Of Breast Acquired Bilateral documented as of this encounter Visit Diagnoses Not on filedocumented in this encounter Additional Health Concerns Assessment Noted Time PHQ-9 Depression Total Score: 0 10/30/19 14 3:19 PM MAGNETIC PROSPECTING OPERATOR documented as of this encounter Care Teams Store Director Relationship Specialty Start Date End Date Sola Kwan APRN, C.N.P., D.N.P. [address] [place] [phone] PCP - General Family Medicine 05/24/22 documented as of this encounter
--- OUTSIDE RECORDS SUMMARY | 2024-06-12 07:43 | XMS_ITS | Clinical Summary ---
Author Organization [facility] Address [address] [place] [address] Care Team Providers Care Internet Sales Manager Name Role Phone No Ref-Primary, Physician Primary [...] Comments Blood Pressure 118/78 09/29/2018 10:31 AM DIRECTOR OF RETAIL MARKETING Pulse 64 09/29/2018 10:31 AM DIRECTOR OF RETAIL MARKETING Temperature 36.7 ??C (98 ??F) 09/29/2018 10:31 AM DIRECTOR OF RETAIL MARKETING Respiratory Rate 16 09/29/2018 10:31 AM DIRECTOR OF RETAIL MARKETING Oxygen Saturation 98% 09/29/2018 10:31 AM DIRECTOR OF RETAIL MARKETING Inhaled Oxygen Concentration - - Weight 98.4 kg (217 lb) 10/18/2005 1:30 PM DIRECTOR OF RETAIL MARKETING Height - - Body Mass Index - - Plan of Treatment Not on file Care Teams Internet Sales Manager Relationship Specialty Start Date End Date No Ref-Primary, Physician PCP - General 09/29/18
--- OUTSIDE RECORDS SUMMARY | 2024-06-12 07:43 | XMS_ITS | Continuity of Care Document ---
Author Organization [facility] Address [address] [place] [address] Phone Care Team Providers Care Head Bander And Liner Operator Name Role Phone Unavailable Unavailable Unavailable Procedures Procedure Date Office consultation, moderate 6 X-ray exam of neck spine, 4+ views Jan- Advance Directives Directive Yes / No Effective Date File Name No Information Encounters Encounter Description Practice Location Reason(s) For Visit Diagnoses Date Provider Providers Copied on Encounter [facility], [address] [place] [address], [facility], tel:[phone] [employer] No Information 0 8 No Information Office consultation, moderate Z [facility], [address] [place] [address], [facility], tel:[phone] [employer] No Information 6 Mehbod Amir. [facility], [address] [address], [place], [place], [id number], [place]. tel:[phone] Referring Provider: Teena Wilson, [facility] [address], [place], [address]. tel:[phone] Family History Family Member Type Diagnosis Age [...]
--- OUTSIDE RECORDS SUMMARY | 2024-06-12 07:43 | XMS_ITS | Encounter Summary ---
Author Organization [facility] Address [address] [place] [address] Care Team Providers Care Program Aide Name Role Phone Sola Kwan APRN, C.N.P., D.N.P. Primary Ca re Provider Reason for Visit * Reason Comments Med Refill Encounter Details Date Type Department Care Team (Late st Contact Info) Description 03/13/2024 Refill Department of Family Medicine, [facility], in [address] [phone] Sola Kwan APRN, C.N.P., D.N.P. [address] [place] [phone] Med Refill Social History Tobacco Use Types [...] often do you attend chur ch or mu-ism services? Never 07/27/2020 Do you belong to any clubs o r organizations such as sikhism groups, unions, fraternal or athletic groups, or [...] 09/29/2022 [facility] Occup[facility] Health - Occupational Stress Questionnaire Answer Date [...] your living situation today? I have a [facility] place to live 05/11/2023 Education Answer Date Recorded What is the highest level of school you have completed or the highest degree you have received? GED or equivalent Comments No Sex and Gender Information Value Date Recorded Sex Assigned at Female 05/16/2023 7:46 AM CDT Legal Sex Female 10:27 AM SCRAP CRANE OPERATOR Gender Identity Female 05/03/2022 12:49 PM CDT Sexual Orientation Straight 05/03/2022 12 :49 PM CDT documented as of this encounter Plan of Treatment Upcoming Encounters Date Type Department Care Team (Latest Contact Info) Description 08/05/2024 3:30 PM SCRAP CRANE OPERATOR Comprehensive Visit Department of Orthopedic Surgery in [address] [place] [address] Lacie Martin D.PDarenMDaren [address] [place] [phone] Discharge Disposition: Home or Self Care Scheduled Procedures Name Priority Associated Diagnoses Date/Ti me REMOVAL TISSUE INJECTION MAINTENANCE TECHNICIAN BREAST Absence Of Breast Acquired Bilateral INJECTION FAT Absence Of Breast Acquired Bilateral RECONSTRUCTION BREAST WITH IMPLANT Absence Of Breast Acquired Bilateral documented as of this encounter Visit Diagnoses Diagnosis Gastroesophageal Reflux Disease Without Esophagitis documented in this encounter Additional Health Concerns Assessment Noted Time PHQ-9 Depression Total Score: 0 10/30/19 14 3:19 PM SCRAP CRANE OPERATOR documented as of this encounter Care Teams Program Aide Relationship Specialty Start Date End Date Sola Kwan APRN, C.N.P., D.N.P. [address] [place] [phone] PCP - General Family Medicine 05/24/22 documented as of this encounter
--- OUTSIDE RECORDS SUMMARY | 2024-06-12 07:43 | XMS_ITS | Encounter Summary ---
Author Organization [facility] Address [address] [place] [address] Care Team Providers Care Emr Implementation Specialist Name Role Phone Sola Kwan APRN, C.N.P., D.N.P. Primary Ca re Provider Reason for Visit * Reason Onset Date Comments Appt Request 03/04/2024 Encounter Details Date Type Department Care Team (Late st Contact Info) Description 03/04/2024 Clinical Communication Division of Endocrinology in [place], [place] [address] [place] [phone] Bri Whitfield APRN, C.N.P. [address] [place] [phone] Appt Request Social History Tobacco Use Types [...] often do you attend chur ch or faith services? Never 07/27/2020 Do you belong to [...] Answer Date Recorded PHQ-2 Score 0 09/29/2022 [facility] - Occupational Stress Questionnaire Answer Date [...] your living situation today? I have a [facility] place to live 05/11/2023 Education Answer Date Recorded What is the highest level of school you have completed or the highest degree you have received? GED or equivalent Comments No Sex and Gender Information Value Date Recorded Sex Assigned at Female 05/16/2023 7:46 AM CDT Legal Sex Female 10:27 AM WEATHERIZATION DIRECTOR Gender Identity Female 05/03/2022 12:49 PM CDT Sexual Orientation Straight 05/03/2022 12 :49 PM CDT documented as of this encounter Plan of Treatment Upcoming Encounters Date Type Department Care Team (Latest Contact Info) Description 08/05/2024 3:30 PM WEATHERIZATION DIRECTOR Comprehensive Visit Department of Orthopedic Surgery in [address] [phone] Lacie Martin, KirtP.M. 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 [id number] [phone] PCP - General Family Medicine 05/24/22 documented as of this encounter
--- OUTSIDE RECORDS SUMMARY | 2024-06-12 07:43 | XMS_ITS | Encounter Summary ---
Author Organization [facility] Address [address] [place] [address] Care Team Providers Care Deposition Operator Name Role Phone Sola Kwan APRN, C.N.P., D.N.P. Primary Ca re Provider Reason for Referral * Outpatient (Routine) - Authorized Specialty Diagnoses / Procedures Referred By Gal bryant Referred To Contact Endocrinology Diagnoses Obesity Body Mass Index 30-39.9 Adult Bri Whitfield APRN, C.N.P. [address] [place] [address] Phone: tel: fax: [facility] Referral ID Status Reason Start Date Expiration Date V isits Requested Visits Authorized [id number] Authorized 03/04/2024 09/03/2025 1 1 Scheduling Instructions Okay to schedule with any nutrition BALDEV/MD pending availability. Encounter Details Date Type Department Care Team (Late st Contact Info) Description 03/04/2024 Orders Only Division of Endocrinology in [place], [place] [address] [place] [phone] Bri Whitfield APRN, C.N.P. [address] [place] [phone] Obesity Body Mass Index 30-39.9 Adult (Primary [...] any clubs o r organizations such as mormonism groups, unions, fraternal or athletic groups, or [...] Answer Date Recorded PHQ-2 Score 0 09/29/2022 [facility] - Occupational Stress Questionnaire Answer [...] your living situation today? I have a [facility] place to live 05/11/2023 Education Answer Date Recorded What is the highest level of school you have completed or the highest degree you have received? 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 [address] [place] [phone] PCP - General Family Medicine 05/24/22 documented as of this encounter
--- OUTSIDE RECORDS SUMMARY | 2024-06-12 07:43 | XMS_ITS | Encounter Summary ---
Author Organization [facility] Address [address] [place] [address] Care Team Providers Care Inspector Water Pollution Control Name Role Phone Sola Kwan APRN, C.N.P., D.N.P. Primary Ca re Provider Reason for Visit * Reason Comments Med Refill Encounter Details Date Type Department Care Team (Late st Contact Info) Description 04/24/2024 Refill Division of Endocrinology in [place], [place] [address] [place] [phone] Monet Gr, PDarenADaren-C. 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 Gender Identity Female 05/03/2022 12:49 PM CDT Sexual Orientation Straight 05/03/2022 12 :49 PM CDT documented as of this encounter Plan of Treatment Upcoming Encounters Date Type Department Care Team (Latest Contact Info) Description 08/05/2024 3:30 PM ADMINISTRATIVE PROFESSIONAL Comprehensive Visit Department of Orthopedic Surgery in [address] [phone] Lacie Martin D.PDarenMDaren [address] [place] [phone] Discharge Disposition: Home or Self Care Scheduled Procedures Name Priority Associated Diagnoses Date/Ti me 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 [address] [phone] PCP - General Family Medicine 05/24/22 documented as of this encounter
--- OUTSIDE RECORDS SUMMARY | 2024-06-12 07:43 | XMS_ITS | Referral Summary ---
Author Organization [facility] Address [address] [place] [address] Care Team Providers Care Beamster Name Role Phone No Ref-Primary, Physician Primary [...] Comments Blood Pressure 118/78 09/29/2018 10:31 AM SOLAR DESIGNER/INSTALLER Pulse 64 09/29/2018 10:31 AM SOLAR DESIGNER/INSTALLER Temperature 36.7 ??C (98 ??F) 09/29/2018 10:31 AM SOLAR DESIGNER/INSTALLER Respiratory Rate 16 09/29/2018 10:31 AM SOLAR DESIGNER/INSTALLER Oxygen Saturation 98% 09/29/2018 10:31 AM SOLAR DESIGNER/INSTALLER Inhaled Oxygen Concentration - - Weight 98.4 kg (217 lb) 10/18/2005 1:30 PM SOLAR DESIGNER/INSTALLER Height - - Body Mass Index - - Plan of Treatment Not on file Care Teams Beamster Relationship Specialty Start Date End Date No Ref-Primary, Physician PCP - General 09/29/18
[2024-06-12] MEDS: PERFLUTREN LIPID MICROSPHERES 2 ML VIAL IVP (08:54)
--- NOTE | 2024-06-12 08:55 | PC.NURSE ---
20G IV placed in right AC. Definity given per bi technical lead instruction. IV then removed intact.
== END 2024-06-12 07:40 | disposition home or self-care (01) ==
LOC: RAD 07:40
PROVIDERS: PCP Nurse Practitioner Family; Visit Provider Physician Assistant
DX: C50.912 Malignant neoplasm of unspecified site of left female breast (principal); I51.7 Cardiomegaly; Z51.81 Encounter for therapeutic drug level monitoring; Z79.899 Other long term (current) drug therapy
CPT/HCPCS: 93306; Q9957

== ENCOUNTER 2024-08-08 15:30 | Outpatient (RCR) | payer BC, SELFPAY ==
[2024-02-16 09:37] VITALS: BP 116/70; PULSE 69; RESP 16; TEMP 36.1; O2SAT 95
[2024-02-16] MEDS: SODIUM CHLORIDE 0.9 % (FLUSH) 10 ML SYRINGE IVF ×2 (09:48→11:35)
[2024-02-16 10:00] LABS: Basophils Absolute Auto 0.06 K/uL (0.00-0.30); Basophils Percent Auto 1.1 % (0.0-3.0); Eosinophils Absolute Auto 0.25 K/uL (0.00-0.50); Eosinophils Percent Auto 4.5 % (0.0-7.0); Hematocrit 41.7 % (33.0-51.0); Hemoglobin* 13.8 gm/dL (12.0-16.0); Immature Granulocytes Abs Auto 0.01 K/uL (0.00-0.30); Immature Granulocytes Pct Auto 0.2 %; Lymphocytes Absolute Auto 1.21 K/uL (0.90-2.90); Mean Corpuscular HGB Conc 33 gm/dL (32-36); Mean Corpuscular Hemoglobin 32 pg (26-34); Mean Corpuscular Volume 96 fL (80-100); Monocytes Percent Auto 8.9 % (0.0-11.0); Neutrophils Absolute Auto 3.49 K/uL (1.7-7.0); Neutrophils Percent Auto 63.3 % (42.0-72.0); Platelet Count* 323 K/uL (140-440); RDW Coefficient of Variation % 12.2 % (11.5-15.5); Red Blood Count 4.33 m/uL (4.00-5.20); White Blood Count* 5.51 K/uL (4.50-11.00)
[2024-02-16 10:01] LABS: Slide Review Reflex No
[2024-02-16 10:19] LABS: Albumin* 4.2 g/dL (3.3-5.0); Chloride* 108 mmol/L (96-114); Potassium* 3.9 mmol/L (3.6-5.1); Sodium* 139 mmol/L (135-149)
[2024-02-16 10:21] LABS: Creatinine* 0.7 mg/dL (0.5-1.5); Estimated Glomerular Filt Rate 103 ml/min
[2024-02-16 10:22] LABS: Alanine Aminotransferase* 24 U/L (4-35); Alkaline Phosphatase* 85 U/L (40-150); Anion Gap 8 mEq/L (7-15); Aspartate Amino Transferase* 38 U/L (12-35); Bilirubin Total* 0.8 mg/dL (0.1-1.5); Blood Urea Nitrogen* 20 mg/dL (7-30); Carbon Dioxide* 23 mmol/L (20-32); Glucose* 106 mg/dL (60-115)
[2024-02-16 10:23] LABS: Calcium* 8.8 mg/dL (8.4-10.6)
[2024-02-16] MEDS: 0.9 % SODIUM CHLORIDE 250 ml IV (11:00)
[2024-02-16] MEDS: HEPARIN 500 UNIT/5 ML SYRINGE IVF (11:35)
[2024-03-08 13:50] VITALS: BP 131/82; PULSE 66; RESP 16; TEMP 36.4; O2SAT 94
[2024-03-08 14:13] LABS: Albumin* 4.1 g/dL (3.3-5.0); Chloride* 108 mmol/L (96-114); Potassium* 3.7 mmol/L (3.6-5.1); Sodium* 142 mmol/L (135-149)
[2024-03-08 14:15] LABS: Creatinine* 0.7 mg/dL (0.5-1.5); Estimated Glomerular Filt Rate 103 ml/min
[2024-03-08 14:16] LABS: Alanine Aminotransferase* 23 U/L (4-35); Alkaline Phosphatase* 86 U/L (40-150); Anion Gap 8 mEq/L (7-15); Aspartate Amino Transferase* 33 U/L (12-35); Bilirubin Total* 0.4 mg/dL (0.1-1.5); Blood Urea Nitrogen* 25 mg/dL (7-30); Calcium* 8.9 mg/dL (8.4-10.6); Carbon Dioxide* 26 mmol/L (20-32); Total Protein* 6.8 g/dL (6.0-8.3)
[2024-03-08 14:32] LABS: Glucose* 109 mg/dL (60-115)
[2024-03-08 14:37] LABS: Basophils Absolute Auto 0.04 K/uL (0.00-0.30); Basophils Percent Auto 0.5 % (0.0-3.0); Eosinophils Absolute Auto 0.23 K/uL (0.00-0.50); Eosinophils Percent Auto 3.1 % (0.0-7.0); Hematocrit 40.8 % (33.0-51.0); Hemoglobin* 13.3 gm/dL (12.0-16.0); Immature Granulocytes Abs Auto 0.01 K/uL (0.00-0.30); Immature Granulocytes Pct Auto 0.1 %; Lymphocytes Absolute Auto 1.82 K/uL (0.90-2.90); Lymphocytes Percent Auto 24.6 % (20-44); Mean Corpuscular HGB Conc 33 gm/dL (32-36); Mean Corpuscular Hemoglobin 32 pg (26-34); Mean Corpuscular Volume 97 fL (80-100); Monocytes Percent Auto 9.3 % (0.0-11.0); Neutrophils Absolute Auto 4.62 K/uL (1.7-7.0); Neutrophils Percent Auto 62.4 % (42.0-72.0); Platelet Count* 327 K/uL (140-440); RDW Coefficient of Variation % 12.4 % (11.5-15.5); Red Blood Count 4.22 m/uL (4.00-5.20); Slide Review Reflex No; White Blood Count* 7.41 K/uL (4.50-11.00)
[2024-03-08] MEDS: 0.9 % SODIUM CHLORIDE 250 ml IV (15:07)
[2024-03-08] MEDS: SODIUM CHLORIDE 0.9 % (FLUSH) 10 ML SYRINGE IVF (15:42)
[2024-03-08] MEDS: HEPARIN 500 UNIT/5 ML SYRINGE IVF (15:42)
[2024-03-29 13:23] LABS: Basophils Absolute Auto 0.06 K/uL (0.00-0.30); Eosinophils Absolute Auto 0.16 K/uL (0.00-0.50); Eosinophils Percent Auto 2.6 % (0.0-7.0); Hematocrit 41.7 % (33.0-51.0); Hemoglobin* 13.7 gm/dL (12.0-16.0); Immature Granulocytes Abs Auto 0.02 K/uL (0.00-0.30); Immature Granulocytes Pct Auto 0.3 %; Lymphocytes Absolute Auto 1.39 K/uL (0.90-2.90); Lymphocytes Percent Auto 22.7 % (20-44); Mean Corpuscular HGB Conc 33 gm/dL (32-36); Mean Corpuscular Hemoglobin 31 pg (26-34); Mean Corpuscular Volume 95 fL (80-100); Monocytes Percent Auto 8.8 % (0.0-11.0); Neutrophils Absolute Auto 3.95 K/uL (1.7-7.0); Neutrophils Percent Auto 64.6 % (42.0-72.0); Platelet Count* 290 K/uL (140-440); RDW Coefficient of Variation % 12.7 % (11.5-15.5); Red Blood Count 4.39 m/uL (4.00-5.20); White Blood Count* 6.12 K/uL (4.50-11.00)
[2024-03-29 13:26] LABS: Slide Review Reflex No
[2024-03-29 13:47] LABS: Chloride* 107 mmol/L (96-114); Potassium* 3.7 mmol/L (3.6-5.1); Sodium* 138 mmol/L (135-149)
[2024-03-29 13:49] LABS: Anion Gap 6 mEq/L (7-15); Aspartate Amino Transferase* 36 U/L (12-35); Bilirubin Total* 0.6 mg/dL (0.1-1.5); Carbon Dioxide* 25 mmol/L (20-32); Creatinine* 0.5 mg/dL (0.5-1.5); Estimated Glomerular Filt Rate 111 ml/min
[2024-03-29 13:50] LABS: Alanine Aminotransferase* 26 U/L (4-35); Alkaline Phosphatase* 83 U/L (40-150); Blood Urea Nitrogen* 19 mg/dL (7-30); Calcium* 8.9 mg/dL (8.4-10.6); Glucose* 91 mg/dL (60-115); Total Protein* 6.7 g/dL (6.0-8.3)
[2024-03-29 14:04] VITALS: BP 130/83; PULSE 68; RESP 16; TEMP 36; O2SAT 98
[2024-03-29] MEDS: IBUPROFEN 400 MG TABLET PO (14:39)
[2024-03-29] MEDS: SODIUM CHLORIDE 0.9 % (FLUSH) 10 ML SYRINGE IVF ×2 (14:40→15:19)
[2024-03-29] MEDS: 0.9 % SODIUM CHLORIDE 250 ml IV (14:40)
[2024-03-29] MEDS: HEPARIN 500 UNIT/5 ML SYRINGE IVF (15:19)
[2024-04-18 13:45] LABS: Basophils Absolute Auto 0.04 K/uL (0.00-0.30); Basophils Percent Auto 0.6 % (0.0-3.0); Eosinophils Percent Auto 2.9 % (0.0-7.0); Hematocrit 40.3 % (33.0-51.0); Hemoglobin* 13.3 gm/dL (12.0-16.0); Immature Granulocytes Abs Auto 0.01 K/uL (0.00-0.30); Immature Granulocytes Pct Auto 0.1 %; Lymphocytes Absolute Auto 1.58 K/uL (0.90-2.90); Lymphocytes Percent Auto 22.8 % (20-44); Mean Corpuscular HGB Conc 33 gm/dL (32-36); Mean Corpuscular Hemoglobin 31 pg (26-34); Mean Corpuscular Volume 94 fL (80-100); Monocytes Percent Auto 8.1 % (0.0-11.0); Neutrophils Absolute Auto 4.55 K/uL (1.7-7.0); Neutrophils Percent Auto 65.5 % (42.0-72.0); Platelet Count* 310 K/uL (140-440); RDW Coefficient of Variation % 13.1 % (11.5-15.5); Red Blood Count 4.31 m/uL (4.00-5.20); White Blood Count* 6.94 K/uL (4.50-11.00)
[2024-04-18 13:47] LABS: Slide Review Reflex No
[2024-04-18 14:22] LABS: Albumin* 4.2 g/dL (3.3-5.0); Chloride* 107 mmol/L (96-114); Potassium* 3.8 mmol/L (3.6-5.1); Sodium* 138 mmol/L (135-149)
[2024-04-18 14:24] LABS: Bilirubin Total* 0.3 mg/dL (0.1-1.5); Creatinine* 0.6 mg/dL (0.5-1.5); Est. Creatinine Clearance* 100.34; Estimated Glomerular Filt Rate 107 ml/min
[2024-04-18 14:25] LABS: Alanine Aminotransferase* 24 U/L (4-35); Alkaline Phosphatase* 109 U/L (40-150); Anion Gap 5 mEq/L (7-15); Aspartate Amino Transferase* 31 U/L (12-35); Blood Urea Nitrogen* 25 mg/dL (7-30); Calcium* 8.9 mg/dL (8.4-10.6); Carbon Dioxide* 26 mmol/L (20-32); Glucose* 99 mg/dL (60-115); Total Protein* 6.9 g/dL (6.0-8.3)
[2024-04-18] MEDS: 0.9 % SODIUM CHLORIDE 250 ml IV (15:04)
[2024-04-18] MEDS: SODIUM CHLORIDE 0.9 % (FLUSH) 10 ML SYRINGE IVF ×2 (15:05→15:51)
[2024-04-18] MEDS: HEPARIN 500 UNIT/5 ML SYRINGE IVF (15:51)
[2024-05-10 11:28] VITALS: BP 124/80; PULSE 69; RESP 17; TEMP 36.4; O2SAT 98
[2024-05-10 11:57] LABS: Basophils Absolute Auto 0.06 K/uL (0.00-0.30); Basophils Percent Auto 0.8 % (0.0-3.0); Eosinophils Absolute Auto 0.19 K/uL (0.00-0.50); Eosinophils Percent Auto 2.5 % (0.0-7.0); Hematocrit 41.5 % (33.0-51.0); Hemoglobin* 13.7 gm/dL (12.0-16.0); Immature Granulocytes Abs Auto 0.04 K/uL (0.00-0.30); Immature Granulocytes Pct Auto 0.5 %; Lymphocytes Percent Auto 19.7 % (20-44); Mean Corpuscular HGB Conc 33 gm/dL (32-36); Mean Corpuscular Hemoglobin 31 pg (26-34); Mean Corpuscular Volume 95 fL (80-100); Monocytes Percent Auto 8.7 % (0.0-11.0); Neutrophils Absolute Auto 5.08 K/uL (1.7-7.0); Neutrophils Percent Auto 67.8 % (42.0-72.0); Platelet Count* 333 K/uL (140-440); RDW Coefficient of Variation % 13.3 % (11.5-15.5); Red Blood Count 4.38 m/uL (4.00-5.20)
[2024-05-10 11:58] LABS: Slide Review Reflex No
[2024-05-10 12:00] LABS: Albumin* 4.4 g/dL (3.3-5.0); Chloride* 105 mmol/L (96-114); Sodium* 139 mmol/L (135-149)
[2024-05-10 12:01] LABS: Potassium* 3.7 mmol/L (3.6-5.1)
[2024-05-10 12:03] LABS: Alanine Aminotransferase* 28 U/L (4-35); Alkaline Phosphatase* 93 U/L (40-150); Anion Gap 9 mEq/L (7-15); Aspartate Amino Transferase* 36 U/L (12-35); Bilirubin Total* 0.5 mg/dL (0.1-1.5); Blood Urea Nitrogen* 22 mg/dL (7-30); Carbon Dioxide* 25 mmol/L (20-32); Creatinine* 0.7 mg/dL (0.5-1.5); Est. Creatinine Clearance* 86.01; Estimated Glomerular Filt Rate 103 ml/min; Glucose* 93 mg/dL (60-115); Total Protein* 7.3 g/dL (6.0-8.3)
[2024-05-10 12:04] LABS: Calcium* 9.2 mg/dL (8.4-10.6)
[2024-05-10] MEDS: 0.9 % SODIUM CHLORIDE 250 ml IV (12:50)
[2024-05-10] MEDS: SODIUM CHLORIDE 0.9 % (FLUSH) 10 ML SYRINGE IVF ×2 (12:50→13:25)
[2024-05-10] MEDS: HEPARIN 500 UNIT/5 ML SYRINGE IVF (13:25)
[2024-05-11 21:23] LABS: Estradiol Premenol Female <20 pg/mL
[2024-05-12 09:59] LABS: Follicle Stimulating Hormone 59.6 IU/L; Luteinizing Hormone 32.6 IU/L
[2024-05-31 09:53] VITALS: BP 125/84; PULSE 59; RESP 16; TEMP 36.1; O2SAT 98
[2024-05-31 10:24] LABS: Basophils Absolute Auto 0.04 K/uL (0.00-0.30); Basophils Percent Auto 0.8 % (0.0-3.0); Eosinophils Absolute Auto 0.21 K/uL (0.00-0.50); Hematocrit 40.9 % (33.0-51.0); Hemoglobin* 13.4 gm/dL (12.0-16.0); Immature Granulocytes Abs Auto 0.03 K/uL (0.00-0.30); Immature Granulocytes Pct Auto 0.6 %; Lymphocytes Absolute Auto 1.26 K/uL (0.90-2.90); Lymphocytes Percent Auto 24.1 % (20-44); Mean Corpuscular HGB Conc 33 gm/dL (32-36); Mean Corpuscular Hemoglobin 32 pg (26-34); Mean Corpuscular Volume 96 fL (80-100); Monocytes Percent Auto 9.8 % (0.0-11.0); Neutrophils Absolute Auto 3.17 K/uL (1.7-7.0); Neutrophils Percent Auto 60.7 % (42.0-72.0); Platelet Count* 301 K/uL (140-440); RDW Coefficient of Variation % 13.1 % (11.5-15.5); Red Blood Count 4.25 m/uL (4.00-5.20); White Blood Count* 5.22 K/uL (4.50-11.00)
[2024-05-31 10:32] LABS: Slide Review Reflex No
[2024-05-31 10:46] LABS: Chloride* 107 mmol/L (96-114); Sodium* 138 mmol/L (135-149)
[2024-05-31 10:47] LABS: Potassium* 3.6 mmol/L (3.6-5.1)
[2024-05-31 10:49] LABS: Alkaline Phosphatase* 76 U/L (40-150); Anion Gap 5 mEq/L (7-15); Aspartate Amino Transferase* 33 U/L (12-35); Bilirubin Total* 0.7 mg/dL (0.1-1.5); Blood Urea Nitrogen* 19 mg/dL (7-30); Carbon Dioxide* 26 mmol/L (20-32); Creatinine* 0.6 mg/dL (0.5-1.5); Est. Creatinine Clearance* 100.34; Estimated Glomerular Filt Rate 107 ml/min; Total Protein* 6.7 g/dL (6.0-8.3)
[2024-05-31 10:50] LABS: Alanine Aminotransferase* 25 U/L (4-35); Calcium* 8.9 mg/dL (8.4-10.6); Glucose* 92 mg/dL (60-115)
[2024-05-31] MEDS: 0.9 % SODIUM CHLORIDE 250 ml IV (11:21)
[2024-05-31] MEDS: SODIUM CHLORIDE 0.9 % (FLUSH) 10 ML SYRINGE IVF ×2 (11:21→11:58)
[2024-05-31] MEDS: HEPARIN 500 UNIT/5 ML SYRINGE IVF (11:58)
--- NOTE | 2024-06-19 09:45 | ONC.NURNOTE ---
Per Maegan, will plan to repeat menopausal labs in 07/2024.
[2024-06-20] MEDS: SODIUM CHLORIDE 0.9 % (FLUSH) 10 ML SYRINGE IVF (13:30)
[2024-06-20] MEDS: ALTEPLASE 2 MG INJ IVF (13:59)
[2024-06-20 14:10] LABS: Basophils Absolute Auto 0.05 K/uL (0.00-0.30); Basophils Percent Auto 0.7 % (0.0-3.0); Eosinophils Percent Auto 5.4 % (0.0-7.0); Hematocrit 41.1 % (33.0-51.0); Hemoglobin* 13.8 gm/dL (12.0-16.0); Lymphocytes Absolute Auto 1.77 K/uL (0.90-2.90); Mean Corpuscular HGB Conc 34 gm/dL (32-36); Mean Corpuscular Hemoglobin 32 pg (26-34); Mean Corpuscular Volume 95 fL (80-100); Monocytes Percent Auto 7.7 % (0.0-11.0); Neutrophils Absolute Auto 4.59 K/uL (1.7-7.0); Neutrophils Percent Auto 62.2 % (42.0-72.0); Platelet Count* 313 K/uL (140-440); RDW Coefficient of Variation % 12.5 % (11.5-15.5); Red Blood Count 4.31 m/uL (4.00-5.20); White Blood Count* 7.38 K/uL (4.50-11.00)
[2024-06-20 14:22] LABS: Slide Review Reflex No
[2024-06-20 14:57] LABS: Albumin* 4.2 g/dL (3.3-5.0); Chloride* 103 mmol/L (96-114)
[2024-06-20 14:58] LABS: Potassium* 3.2 mmol/L (3.6-5.1); Sodium* 138 mmol/L (135-149)
[2024-06-20 15:00] LABS: Alanine Aminotransferase* 22 U/L (4-35); Alkaline Phosphatase* 85 U/L (40-150); Anion Gap 9 mEq/L (7-15); Aspartate Amino Transferase* 29 U/L (12-35); Bilirubin Total* 0.3 mg/dL (0.1-1.5); Blood Urea Nitrogen* 27 mg/dL (7-30); Carbon Dioxide* 26 mmol/L (20-32); Creatinine* 0.6 mg/dL (0.5-1.5); Est. Creatinine Clearance* 100.34; Estimated Glomerular Filt Rate 107 ml/min; Glucose* 109 mg/dL (60-115); Total Protein* 7.1 g/dL (6.0-8.3)
[2024-06-20 15:01] LABS: Calcium* 9.1 mg/dL (8.4-10.6)
[2024-06-26 15:13] LABS: Chloride* 105 mmol/L (96-114); Potassium* 3.9 mmol/L (3.6-5.1); Sodium* 138 mmol/L (135-149)
[2024-06-26 15:16] LABS: Anion Gap 8 mEq/L (7-15); Blood Urea Nitrogen* 25 mg/dL (7-30); Carbon Dioxide* 25 mmol/L (20-32); Creatinine* 0.7 mg/dL (0.5-1.5); Est. Creatinine Clearance* 86.01; Estimated Glomerular Filt Rate 103 ml/min
[2024-06-26 15:17] LABS: Calcium* 9.3 mg/dL (8.4-10.6); Glucose* 109 mg/dL (60-115)
--- NOTE | 2024-06-28 11:57 | ONC.NURNOTE ---
Pt with K 3.2 on 06/20. Per Maegan, pt to take 20 mEq KCl PO daily x 7 days then recheck. Recheck 06/26 K 3.9; reviewed with Maegan Trujillo for pt to stop potassium as ordered. Recheck K with next labs/infusion in 2 wks. Pt verbalizes understanding.
[2024-07-12] MEDS: SODIUM CHLORIDE 0.9 % (FLUSH) 10 ML SYRINGE IVF ×2 (12:40→15:03)
[2024-07-12 13:05] LABS: Basophils Absolute Auto 0.02 K/uL (0.00-0.30); Basophils Percent Auto 0.3 % (0.0-3.0); Eosinophils Percent Auto 7.3 % (0.0-7.0); Hematocrit 41.9 % (33.0-51.0); Immature Granulocytes Abs Auto 0.01 K/uL (0.00-0.30); Immature Granulocytes Pct Auto 0.2 %; Lymphocytes Absolute Auto 1.39 K/uL (0.90-2.90); Lymphocytes Percent Auto 21.7 % (20-44); Mean Corpuscular HGB Conc 33 gm/dL (32-36); Mean Corpuscular Hemoglobin 32 pg (26-34); Mean Corpuscular Volume 95 fL (80-100); Monocytes Percent Auto 8.4 % (0.0-11.0); Neutrophils Absolute Auto 3.97 K/uL (1.7-7.0); Neutrophils Percent Auto 62.1 % (42.0-72.0); Platelet Count* 317 K/uL (140-440); RDW Coefficient of Variation % 12.7 % (11.5-15.5); Red Blood Count 4.39 m/uL (4.00-5.20)
[2024-07-12 13:12] LABS: Slide Review Reflex No
[2024-07-12 13:29] VITALS: BP 110/76; PULSE 65; RESP 18; TEMP 36.2; O2SAT 97
[2024-07-12 13:51] LABS: Albumin* 4.3 g/dL (3.3-5.0); Chloride* 104 mmol/L (96-114); Sodium* 138 mmol/L (135-149)
[2024-07-12 13:52] LABS: Potassium* 3.9 mmol/L (3.6-5.1)
[2024-07-12 13:54] LABS: Alkaline Phosphatase* 92 U/L (40-150); Anion Gap 9 mEq/L (7-15); Aspartate Amino Transferase* 28 U/L (12-35); Bilirubin Total* 0.3 mg/dL (0.1-1.5); Blood Urea Nitrogen* 24 mg/dL (7-30); Carbon Dioxide* 25 mmol/L (20-32); Creatinine* 0.6 mg/dL (0.5-1.5); Est. Creatinine Clearance* 100.34; Estimated Glomerular Filt Rate 107 ml/min; Glucose* 99 mg/dL (60-115); Total Protein* 7.1 g/dL (6.0-8.3)
[2024-07-12 13:55] LABS: Alanine Aminotransferase* 23 U/L (4-35); Calcium* 9.1 mg/dL (8.4-10.6)
[2024-07-12] MEDS: HEPARIN 500 UNIT/5 ML SYRINGE IVF (15:03)
[2024-08-02 09:09] LABS: Basophils Absolute Auto 0.06 K/uL (0.00-0.30); Basophils Percent Auto 1.1 % (0.0-3.0); Eosinophils Percent Auto 10.6 % (0.0-7.0); Hematocrit 40.9 % (33.0-51.0); Hemoglobin* 13.4 gm/dL (12.0-16.0); Lymphocytes Absolute Auto 1.37 K/uL (0.90-2.90); Lymphocytes Percent Auto 24.5 % (20-44); Mean Corpuscular HGB Conc 33 gm/dL (32-36); Mean Corpuscular Hemoglobin 31 pg (26-34); Mean Corpuscular Volume 96 fL (80-100); Monocytes Percent Auto 8.2 % (0.0-11.0); Neutrophils Absolute Auto 3.11 K/uL (1.7-7.0); Neutrophils Percent Auto 55.6 % (42.0-72.0); Platelet Count* 301 K/uL (140-440); RDW Coefficient of Variation % 12.7 % (11.5-15.5); Red Blood Count 4.28 m/uL (4.00-5.20); White Blood Count* 5.59 K/uL (4.50-11.00)
[2024-08-02 09:22] LABS: Chloride* 107 mmol/L (96-114); Potassium* 3.4 mmol/L (3.6-5.1); Sodium* 140 mmol/L (135-149)
[2024-08-02 09:24] LABS: Anion Gap 5 mEq/L (7-15); Bilirubin Total* 0.5 mg/dL (0.1-1.5); Carbon Dioxide* 28 mmol/L (20-32); Creatinine* 0.6 mg/dL (0.5-1.5); Est. Creatinine Clearance* 100.34; Estimated Glomerular Filt Rate 107 ml/min
[2024-08-02 09:25] LABS: Alanine Aminotransferase* 20 U/L (4-35); Alkaline Phosphatase* 81 U/L (40-150); Aspartate Amino Transferase* 24 U/L (12-35); Blood Urea Nitrogen* 24 mg/dL (7-30); Calcium* 9.1 mg/dL (8.4-10.6); Glucose* 93 mg/dL (60-115); Total Protein* 6.7 g/dL (6.0-8.3)
[2024-08-02 09:30] VITALS: BP 117/78; PULSE 57; RESP 16; TEMP 36.2; O2SAT 95
[2024-08-02 09:40] LABS: Slide Review Reflex No
[2024-08-02] MEDS: SODIUM CHLORIDE 0.9 % (FLUSH) 10 ML SYRINGE IVF (10:59)
[2024-08-02] MEDS: 0.9 % SODIUM CHLORIDE 250 ml IV (10:59)
[2024-08-02] MEDS: HEPARIN 500 UNIT/5 ML SYRINGE IVF (10:59)
[2024-08-04 02:21] LABS: Follicle Stimulating Hormone 65.4 IU/L; Luteinizing Hormone 40.6 IU/L
[2024-08-04 02:48] LABS: Estradiol Premenol Female <20 pg/mL
== END 2024-08-14 23:59 | disposition home or self-care (01) ==
LOC: CCIC 15:30
PROVIDERS: Clinical Nurse Specialist; PCP Nurse Practitioner Family; Referring Provider Nurse Practitioner Family; Visit Provider Physician Assistant
DX: C50.911 Malignant neoplasm of unspecified site of right female breast (principal); Z17.0 Estrogen receptor positive status [ER+]; E87.6 Hypokalemia; Z90.13 Acquired absence of bilateral breasts and nipples; Z79.810 Long term (current) use of selective estrogen receptor modulators (SERMs)
CPT/HCPCS: 36415; 36591; 80048; 80053; 82670; 83001; 83002; 85025; 96413; 99214; 99215; G0463; A9270; J1642; J2997; J7050; Q5114

== ENCOUNTER 2024-09-09 08:49 | Outpatient (CLI) | payer BC, SELFPAY ==
[2024-09-09] MEDS: PERFLUTREN LIPID MICROSPHERES 2 ML VIAL IVP (09:35)
== END 2024-09-09 08:50 | disposition home or self-care (01) ==
LOC: RAD 08:50
PROVIDERS: PCP Nurse Practitioner Family; Visit Provider Physician Assistant
DX: C50.912 Malignant neoplasm of unspecified site of left female breast (principal); I51.7 Cardiomegaly; Z51.81 Encounter for therapeutic drug level monitoring; Z79.899 Other long term (current) drug therapy
CPT/HCPCS: 93306; Q9957

== ENCOUNTER 2024-12-17 15:00 | Outpatient (RCR) | payer BC, SELFPAY ==
[2024-08-23 08:54] VITALS: BP 128/85; PULSE 71; RESP 16; TEMP 36.2; O2SAT 96
[2024-08-23 09:25] LABS: Eosinophils Percent Auto 6.5 % (0.0-7.0); Hematocrit 41.6 % (33.0-51.0); Lymphocytes Percent Auto 13.6 % (20-44); Mean Corpuscular HGB Conc 34 gm/dL (32-36); Mean Corpuscular Hemoglobin 32 pg (26-34); Mean Corpuscular Volume 95 fL (80-100); Monocytes Percent Auto 16.4 % (0.0-11.0); Neutrophils Percent Auto 62.5 % (42.0-72.0); Platelet Count* 236 K/uL (140-440); RDW Coefficient of Variation % 12.8 % (11.5-15.5); Red Blood Count 4.38 m/uL (4.00-5.20); White Blood Count* 4.03 K/uL (4.50-11.00)
[2024-08-23] MEDS: ALTEPLASE 2 MG INJ IVF (09:27)
[2024-08-23] MEDS: SODIUM CHLORIDE 0.9 % (FLUSH) 10 ML SYRINGE IVF ×2 (09:28→11:18)
[2024-08-23 09:31] LABS: Slide Review Reflex No
[2024-08-23 09:46] LABS: Chloride* 107 mmol/L (96-114)
[2024-08-23 09:47] LABS: Albumin* 4.1 g/dL (3.3-5.0); Potassium* 3.3 mmol/L (3.6-5.1); Sodium* 135 mmol/L (135-149)
[2024-08-23 09:50] LABS: Alanine Aminotransferase* 22 U/L (4-35); Alkaline Phosphatase* 77 U/L (40-150); Anion Gap 4 mEq/L (7-15); Aspartate Amino Transferase* 28 U/L (12-35); Bilirubin Total* 0.5 mg/dL (0.1-1.5); Blood Urea Nitrogen* 22 mg/dL (7-30); Carbon Dioxide* 24 mmol/L (20-32); Creatinine* 0.6 mg/dL (0.5-1.5); Estimated Glomerular Filt Rate 106 ml/min; Glucose* 97 mg/dL (60-115); Total Protein* 6.8 g/dL (6.0-8.3)
[2024-08-23 09:51] LABS: Calcium* 9.1 mg/dL (8.4-10.6)
[2024-08-23] MEDS: HEPARIN 500 UNIT/5 ML SYRINGE IVF (11:18)
[2024-08-23] MEDS: 0.9 % SODIUM CHLORIDE 500 ML IV (11:18)
== END 2025-02-19 23:59 | disposition home or self-care (01) ==
LOC: CCIC 15:00
PROVIDERS: Physician Assistant; PCP Nurse Practitioner Family; Referring Provider Nurse Practitioner Family; Visit Provider Internal Medicine Hematology & Oncology
DX: C50.911 Malignant neoplasm of unspecified site of right female breast (principal); Z17.0 Estrogen receptor positive status [ER+]; Z79.810 Long term (current) use of selective estrogen receptor modulators (SERMs); Z90.13 Acquired absence of bilateral breasts and nipples; Z85.41 Personal history of malignant neoplasm of cervix uteri
CPT/HCPCS: 36415; 80053; 85025; 96413; 99213; 99214; G0463; J1642; J2997; J7030; J7050; Q5114